=== PATIENT | female | born 1985 | race Caucasian/White ===

== ENCOUNTER 2016-10-08 18:30 | Inpatient (IN) | payer SELFPAY ==
[~2016-10-08] VITALS: Ht 160 cm; Wt 75.0 kg
[~2016-10-08 18:30] MED LIST: ARIP1TAB5 PO; DULO20 PO; LORA-474 PO
[2016-10-08 18:33] VITALS: BP 116/71; PULSE 117; RESP 16; TEMP 98.2; O2SAT 98
[2016-10-08] MEDS ORDERED: XANA1TAB2 PO (18:42)
[2016-10-08] MEDS ORDERED: BREX1TAB2 PO (18:42)
[2016-10-08] MEDS ORDERED: ZOLO100T PO (18:42)
--- NOTE | 2016-10-08 19:03 | PD ---
HPI Chief Complaint: Psychiatric Symptoms Time Seen by Provider: 18:55 Travel History International Travel<30 days: No Contact w/Intl Traveler<30days: No Traveled to known affect area: No History of Present Illness HPI Patient is a 31-year-old female presents emergency department for evaluation for being "at the end of her rope". Patient states she took 20 tablets of Xanax of unknown strength approximate hour prior to arrival. She states she wasn't trying to hurt herself just trying to make herself feel better. She states she has a history of depression. Denies any other ingestions tonight. She denies any physical complaints including any chest pain shortness of breath abdominal pain nausea or vomiting. She states psychiatric symptoms been going on for some time and gradually worsening. PFSH Past Medical History Hx Anticoagulant Therapy: No Asthma: No Anxiety: Yes Depression: Yes Cardiovascular Problems: No Chemotherapy: No COPD: No Cerebrovascular Accident: No Diabetes: No Diminished Hearing: No Psychiatric: Yes Respiratory: No ?: Not : 0 Para: 0 Miscarriage: 0 : 0 Past Surgical History Hysterectomy: No Other Surgery: Yes (DEVIATED SEPTUM REPAIR-2002) Social History Alcohol Use: Yes ([facility]) Tobacco Use: No Substance Use: No Allergies-Medications (Allergen,Severity, Reaction): Coded Allergies: No Known Allergies (Verified , 10/08/16) Reported Meds & Prescriptions Reported Meds & Active Scripts Active Reported Xanax (Alprazolam) 1 Mg Tab 1 Mg PO TID PRN Zoloft (Sertraline HCl) 100 Mg Tab 200 Mg PO DAILY Rexulti (Brexpiprazole) 0.5 Mg Tab 0.5 Mg PO DAILY Review of Systems Except as stated in HPI: all other systems reviewed are Neg Physical Exam Narrative GENERAL: Well-developed well-nourished no obvious distress. SKIN: Focused skin assessment warm/dry. HEAD: Atraumatic. Normocephalic. EYES: Pupils equal and round. No scleral icterus. No injection or drainage. ENT: No nasal bleeding or discharge. Mucous membranes pink and moist. NECK: Trachea midline. No JVD. CARDIOVASCULAR: Regular rate and rhythm. No murmur appreciated. RESPIRATORY: No accessory muscle use. Clear to auscultation. Breath sounds equal bilaterally. GASTROINTESTINAL: Abdomen soft, non-tender, nondistended. Hepatic and splenic margins not palpable. MUSCULOSKELETAL: No obvious deformities. No clubbing. No cyanosis. No edema. NEUROLOGICAL: Awake and alert. No obvious cranial nerve deficits. Motor grossly within normal limits. Normal speech. PSYCHIATRIC: Appropriate mood and affect; endorses suicidal ideation but states that tonight was not a suicide attempt. Denies homicidal ideation, denies any audiovisual hallucinations. Data Data Last Documented VS Vital Signs Date Time Temp Pulse Resp B/P Pulse Ox O2 Delivery O2 Flow Rate FiO2 10/08/16 21:22 105 17 104/68 97 Room Air 10/08/16 18:33 98.2 Orders Complete Blood Count With Diff (10/08/16 19:11) Comprehensive Metabolic Panel (10/08/16 19:11) Urinalysis - C+S If Indicated (10/08/16 19:11) Ed Urine Pregnancytest Poc (10/08/16 19:11) Psych Screen (10/08/16 19:11) Drug Screen, Random Urine (10/08/16 19:11) Alcohol (Ethanol) (10/08/16 19:11) Salicylates (Aspirin) (10/08/16 19:11) Tylenol (Acetaminophen) (10/08/16 19:11) Diet Regular Basic (10/09/16 Breakfast) Labs Laboratory Tests Test 10/08/16 19:00 White Blood Count 5.7 TH/MM3 Red Blood Count 4.57 MIL/MM3 Hemoglobin 11.4 GM/DL Hematocrit 35.6 % Mean Corpuscular Volume 77.8 FL Mean Corpuscular Hemoglobin 25.0 PG Mean Corpuscular Hemoglobin 32.2 % Concent Red Cell Distribution Width 15.3 % Platelet Count 267 TH/MM3 Mean Platelet Volume 10.2 FL Neutrophils (%) (Auto) 59.3 % Lymphocytes (%) (Auto) 29.6 % Monocytes (%) (Auto) 8.7 % Eosinophils (%) (Auto) 1.7 % Basophils (%) (Auto) 0.7 % Neutrophils # (Auto) 3.4 TH/MM3 Lymphocytes # (Auto) 1.7 TH/MM3 Monocytes # (Auto) 0.5 TH/MM3 Eosinophils # (Auto) 0.1 TH/MM3 Basophils # (Auto) 0.0 TH/MM3 CBC Comment DIFF FINAL Differential Comment Urine Color LIGHT-YELLOW Urine Turbidity CLEAR Urine pH 6.0 Urine Specific [place] 1.004 Urine Protein NEG mg/dL Urine Glucose (UA) NEG mg/dL Urine Ketones NEG mg/dL Urine Occult Blood MOD Urine Nitrite NEG Urine Bilirubin NEG Urine Urobilinogen LESS THAN 2.0 MG/DL Urine Leukocyte Esterase NEG Urine RBC 2 /hpf Urine WBC 1 /hpf Urine Squamous Epithelial 1 /hpf Cells Urine Bacteria RARE /hpf Microscopic Urinalysis Comment CULT NOT INDICATED Sodium Level 137 MEQ/L Potassium Level 3.4 MEQ/L Chloride Level 104 MEQ/L Carbon Dioxide Level 26.6 MEQ/L Anion Gap 6 MEQ/L Blood Urea Nitrogen 10 MG/DL Creatinine 1.08 MG/DL Estimat Glomerular Filtration 59 ML/MIN Rate Random Glucose 117 MG/DL Calcium Level 9.2 MG/DL Total Bilirubin 0.4 MG/DL Aspartate Amino Transf 12 U/L (AST/SGOT) Alanine Aminotransferase 20 U/L (ALT/SGPT) Alkaline Phosphatase 99 U/L Total Protein 7.8 GM/DL Albumin 4.1 GM/DL Salicylates Level LESS THAN 1.7 MG/DL Urine Opiates Screen NEG Acetaminophen Level LESS THAN 20.0 MCG/ML Urine Barbiturates Screen NEG Urine Amphetamines Screen NEG Urine Benzodiazepines Screen POS Urine Cocaine Screen NEG Urine Cannabinoids Screen NEG Ethyl Alcohol Level LESS THAN 3 MG/DL MDM Medical Decision Making Medical Screen Exam Complete: Yes Emergency Medical Condition: Yes Differential Diagnosis Xanax overdose, other substance overdose, psychiatric disorder. Narrative Course Patient states he took 20 tablets of Xanax approximately an hour prior to arrival. She states she is at the end of her rope. She was placed under a [place] act by me for an apparent suicide attempt. Labs are reassuring she's been monitored here in emerged permit for 2 hours. She is medically cleared for psychiatric evaluation and disposition Diagnosis Primary Impression: Benzodiazepine overdose Additional Impression: Depression Condition: Stable Reagan Thayer MD Oct 08, 2016 19:03
[2016-10-08 20:26] LABS: AMPHETAMINE, URINE NEG (NEG); BARBITURATES, URINE NEG (NEG); COCAINE, URINE NEG (NEG)
[2016-10-08 20:28] LABS: AUTOMATED NEUTROPHIL # 3.4 TH/MM3 (1.8-7.7); BACTERIA, URINE RARE /hpf; BASOPHIL % 0.7 % (0.0-2.0); BLOOD, URINE MOD (NEG); COMMENT (UR) CULT NOT INDICATED; CULTURE IF INDICATED CULT NOT INDICATED; EOSINOPHIL # 0.1 TH/MM3 (0-0.4); EOSINOPHIL % 1.7 % (0.0-4.0); GLUCOSE,URINE NEG (NEG); HEMATOCRIT 35.6 % (35.0-46.0); HEMO FLAGS DIFF FINAL; KETONE, URINE NEG (NEG); LYMPH % 29.6 % (9.0-44.0); LYMPHOCYTE # 1.7 TH/MM3 (1.0-4.8); MEAN CELL VOLUME 77.8 FL (80.0-100.0); MEAN CORPUSCULAR HGB CONC 32.2 % (32.0-36.0); MONO % 8.7 % (0.0-8.0); NEUT % 59.3 % (16.0-70.0); NITRITE,URINE NEG (NEG); PLATELET COUNT 267 TH/MM3 (150-450); RED BLOOD COUNT 4.57 MIL/MM3 (4.00-5.30); RED CELL DISTRIBUTION WIDTH 15.3 % (11.6-17.2); SQUAMOUS EPITHELIAL CELL URINE 1 /hpf (0-5); URINE COLOR LIGHT-YELLOW (YELLW/STRAW); WHITE BLOOD COUNT 5.7 TH/MM3 (4.0-11.0)
[2016-10-08 20:41] LABS: ANION GAP 6 MEQ/L (5-15); AST (GOT) 12 U/L (15-37); BICARBONATE 26.6 MEQ/L (21.0-32.0); BLOOD UREA NITROGEN 10 MG/DL (7-18); CHLORIDE 104 MEQ/L (98-107); GLOMERULAR FILTRATION RATE 59 ML/MIN (>89); POTASSIUM 3.4 MEQ/L (3.5-5.1); SODIUM (NA) 137 MEQ/L (136-145)
[2016-10-08 20:45] LABS: ALKALINE PHOSPHATASE 99 U/L (45-117); ALT (GPT) 20 U/L (10-53); TOTAL BILIRUBIN ADULT 0.4 MG/DL (0.2-1.0)
[2016-10-08 20:57] LABS: ACETAMINOPHEN LESS THAN 20.0 MCG/ML (10.0-30.0)
[2016-10-08 21:00] VITALS: BP 97/64; PULSE 97; RESP 16; O2SAT 98
[2016-10-08 21:22] VITALS: BP 104/68; PULSE 105; RESP 17; O2SAT 97
[2016-10-09 02:00] VITALS: BP 106/68; PULSE 77; RESP 18; O2SAT 97
[2016-10-09] MEDS ORDERED: MAGNESIUM HYDROXIDE SUSP 30 ML CUP PO PRN (08:45)
[2016-10-09] MEDS ORDERED: LORazepam 2 MG/ML VIAL IV PUSH PRN ×4 (08:45)
[2016-10-09] MEDS ORDERED: LORazepam 2 MG TAB PO PRN (08:45)
[2016-10-09] MEDS ORDERED: LORazepam 0.5 MG TAB PO PRN (08:45)
[2016-10-09] MEDS ORDERED: ACETAMINOPHEN 325 MG TAB PO PRN (08:45)
[2016-10-09] MEDS ORDERED: LORazepam 2 MG/ML VIAL IM PRN ×2 (08:45)
[2016-10-09] MEDS ORDERED: LORazepam 1 MG TAB PO PRN (08:45)
[2016-10-09] MEDS ORDERED: FLUMAZENIL 0.5 MG/5 ML VIAL IV PUSH PRN (08:45)
[2016-10-09] MEDS ORDERED: ALUMINUM/MAGNESIUM/SIMETH 30 ML CUP PO PRN (08:45)
--- NOTE | 2016-10-09 08:59 | HHI.HP ---
Provisional Diagnosis Admission Date Oct 09, 2016 at 08:35 [place] I. Major depressive disorder, recurrent, severe, without psychosis, hypnotic- sedative use disorder, history of anxiety, [place] II. Unspecified personality disorder, rule out borderline personality disorder [place] III. No significant medical history [place] IV. Extensive history of self cutting behavior, suicidal attempts, financial stressors Low[place] V. 45 Certification of Person's Competence To Provide Express and Informed Consent I have personally examined Deborah Perez , a person being served at [facility] onOct 09, 2016 08:54. Express and informed consent means consent voluntarily given in writing, by a competent person, after sufficient explanation and disclosure of the subject matter involved to enable the person to make a knowing and willful decision without any element of force, fraud, deceit, duress, or other form of constraint or coercion. This person is 18 years of age or older, is not now known to be incompetent to consent to treatment with a guardian advocate, and does not have a health care surrogate or proxy currently making medical treatment decisions. I have found this person to be one of the following: [X] Competent to provide express and informed consent, as defined above, for voluntary admission to this facility and is competent to provide express and informed consent for treatment. He/she has the consistent capacity to make well reasoned, willful, and knowing decisions concerning his or her medical or mental health treatment. The person fully and consistently understands the purpose of the admission for examination/placement and is fully capable of personally exercising all rights assured [place] Incompetent to provide express and informed consent to voluntary admission, and this is incompetent to provide express and informed consent to treatment. The person must be transferred to involuntary status and a petition for a guardian advocate filed with the Circuit Court. [] Refusing to provide express and informed consent to voluntary admission but is competent to provide express and informed consent for treatment. The person must be discharged or transferred to involuntary status. Form shall be completed within 24 hours of a person's arrival at the receiving facility and filed in the clinical record of each person: 1. Admitted on a voluntary basis 2. Permitted to provide express and informed consent to his/her own treatment 3. Allowed to transfer from involuntary to voluntary status 4. Prior to permitting a person to consent to his or her own treatment after having been previously found incompetent to consent to treatment. History of Present Illness Capacity: Has Capacity HPI The patient is a 31-year-old woman, domiciled with her in [facility], unemployed, with psychiatric history of major depressive disorder, anxiety, benzodiazepine dependence, multiple psychiatric admissions, previous suicidal attempts, self cutting behavior without SI, active outpatient psychiatric care, she is on Zoloft 200 mg, Xanax 1 3 times a day, Brexpiprazole , no significant medical history, who presents emergency department for evaluation for being "at the end of her rope". Patient states she took 20 tablets of Xanax of unknown strength approximate hour prior to arrival. She states she wasn't trying to hurt herself just trying to make herself feel better , but she has been having increased in severity, intensity and frequency suicidal thoughts and desire of self cutting. Patient reports that she has been having financial issues, also marital problems, she has been looking for a job for the last 3 months unsuccessfully. But, at the same time without any reason she has been increasingly hopeless, helpless, worthless, with decreased self-esteem, difficulty sleeping at night, increased anxiety, and decreased appetite. Patient denies visual and auditory hallucinations, she denies homicidal ideations. Patient is oriented 3, without any attention deficit, no gross cognitive impairment. Patient reports that she has been abusing Xanax, she is unable to quantify the amount that she is using everyday, but she seems to be insightful about her benzodiazepine addiction problem. At the moment of this evaluation patient does not seem to be drug seeking and she seems to be more committed with an admission for her depression. She denies the use of illicit drugs and she denies the use of alcohol. Review of Systems Constitutional: DENIES: Diaphoretic episodes, Fatigue, Fever, Weight gain, Weight loss, Chills, Dizziness, Change in appetite, Night Sweats Endocrine: DENIES: Abnorml menstrual pattern, Heat/cold intolerance, Polydipsia , Polyuria, Polyphagia Eyes: DENIES: Blurred vision, Diplopia, Eye inflammation, Eye pain, Vision loss , Photosensitivity, Double Vision Ears, nose, mouth, throat: DENIES: Tinnitus, Hearing loss, Vertigo, Nasal discharge, Oral lesions, Throat pain, Hoarseness, Ear Pain, Running Nose, Epistaxis, Sinus Pain, Toothache, Odynophagia Respiratory: DENIES: Apneas, Cough, Snoring, Wheezing, Hemoptysis, Sputum production, Shortness of breath Cardiovascular: DENIES: Chest pain, Palpitations, Syncope, Dyspnea on Exertion , PND, Lower Extremity Edema, Orthopnea, Claudication Gastrointestinal: DENIES: Abdominal pain, Black stools, Bloody stools, Constipation, Diarrhea, Nausea, Vomiting, Difficulty Swallowing, Anorexia Musculoskeletal: DENIES: Joint pain, Muscle aches, Stiffness, Joint Swelling, Back pain, Neck pain Integumentary: DENIES: Abnormal pigmentation, Pruritus, Rash, Nail changes, Breast masses, Breast skin changes, Nipple discharge Hematologic/lymphatic: DENIES: Bruising, Lymphadenopathy Neurologic: DENIES: Abnormal gait, Headache, Localized weakness, Paresthesias, Seizures, Speech Problems, Tremor, Poor Balance Psychiatric: COMPLAINS OF: Anxiety, Depression, Suicidal Ideation, DENIES: Confusion, Mood changes, Hallucinations, Agitation, Homicidal Ideation, Delusions Past Psych History Violence risk - self (6 mos) Elevated Substance Abuse History Drugs/Alcohol past 12 months Patient denies the use of illicit drugs and alcohol, she confirms that she abuses Xanax Past Family Social History Coded Allergies: No Known Allergies (Verified , 10/08/16) Reported Medications Alprazolam (Xanax)1 Mg Tab1 Mg PO TID PRN (ANXIETY) Ref 0 10/08/16 Sertraline (Zoloft)100 Mg Cmg751 Mg PO DAILY #30 TAB Ref 0 10/08/16 Brexpiprazole (Rexulti)0.5 Mg Tab0.5 Mg PO DAILY 10/08/16 Discontinued Reported Medications Duloxetine DR (Cymbalta DR)20 Mg Capdr20 Mg PO DAILY #30 CAP Ref 0 02/28/16 Aripiprazole (Abilify)10 Mg Tab10 Mg PO DAILY #30 TAB Ref 0 02/28/16 Lorazepam (Ativan)1 Mg Tab1 Mg PO Q6H PRN (ANXIETY AND/OR AGITATION) Ref 0 02/28/16 Current Medications Medications (Trade) Dose Ordered Sig/Nga Route Start Time Stop Time Status Last Admin (Ativan) 1 mg Q6H PRN PO 10/09/16 08:45 (Ativan Inj) 1 mg Q6H PRN IM 10/09/16 08:45 (Tylenol) 650 mg Q4H PRN PO 10/09/16 08:45 (Milk Of Magnesia Liq) 30 ml DAILY PRN PO 10/09/16 08:45 (Mag-Al Plus Susp Liq) 30 ml Q6H PRN PO 10/09/16 08:45 (Habitrol 21 Mg Patch.24 Hr) 1 patch DAILY T-DERMAL 10/09/16 09:00 (Romazicon Inj) 0.2 mg Q1M PRN IV PUSH 10/09/16 08:45 (Ativan) 1 mg Q4H PRN PO 10/09/16 08:45 (Ativan Inj) 1 mg Q4H PRN IV PUSH 10/09/16 08:45 (Ativan) 2 mg Q2H PRN PO 10/09/16 08:45 (Ativan Inj) 2 mg Q2H PRN IV PUSH 10/09/16 08:45 (Ativan Inj) 2 mg Q1H PRN IV PUSH 10/09/16 08:45 (Ativan Inj) 2 mg Q15M PRN IV PUSH 10/09/16 08:45 (Zoloft) 200 mg DAILY PO 10/09/16 09:00 UNV Non-Formulary Medication 0.5 mg DAILY PO 10/09/16 09:00 UNV (Atarax) 25 mg Q8H PRN PO 10/09/16 08:45 UNV Miscellaneous Information 1 HS T-DERMAL 10/09/16 21:00 Family History She doesn't have any family psychiatric history Social History She was born and raised in [place], he now lives with her in [place], she has no kids, she is unemployed at this time, her highest level of education is college Patient's Strengths (min. 2) Family support, outpatient psychiatric care Physical Exam On physical exam, no psychomotor retardation or agitation, no tremors, no withdrawal, no stiffness, no EPS, no gait disturbance noted Vital Signs Vital Signs Date Time Temp Pulse Resp B/P Pulse Ox O2 Delivery O2 Flow Rate FiO2 10/09/16 02:00 77 18 106/68 97 Room Air 10/08/16 18:33 98.2 Mental Status Examination Appearance woman, age appearing, [facility], good hygiene, several scars from previous self cutting behavior in both arms, calm and cooperative Speech: Unremarkable Orientation: x3 Memory: Unremarkable Thought Content: Unremarkable Language Patient speaks in complete sentences, adequate words and grammar Fund of Knowledge Adequate for level of education Attention and Concentration: Good Suicidal Ideation: Yes Previous Suicide Attempts: Yes Homicidal Ideation: No Previous Homicide Attempts: No Insight: Good Judgment: Poor Affect: Sad Mood: Sad Assessment & Plan Problem List: (1) Depression Assessment & Plan: On psychiatric evaluation today the patient reports symptomatology of depression and suicidal ideation. Symptoms of depression consisting and about 3 months of continues, increase in severity and intensity mood swings, hopelessness, helplessness, worthlessness, low self-esteem, problems sleeping, anxiety, and suicidal thoughts. Patient has recently, yesterday, overdose with about 20 pills of Xanax, she reports persisting intrusive thoughts of self cutting. Patient reports acute stressors consistent on unemployment, marital and financial problems. Patient admits being abusing Xanax for many years. She is unable to quantify the amount of pills taken in a day. She seems to be interested in regulating the use of this medication. No withdrawal symptoms present at this moment. She has an extensive history of suicidal ideation and self cutting behavior. At this moment patient represents an acute danger to self and needs psychiatric admission for safety. Patient will be admitted in voluntarily basis. We would restart her outpatient psychotropics with the exception of Xanax. will start CIWa protocol, but we will avoid the use of benzodiazepines for anxiety. This decision was widely discussed with the patient before the admission, she agrees. Extensive psychoeducation, supportive motivation provided. ICD Code: F32.9 Assessment & Plan Estimated LOS: days Problem Qualifiers (1) Depression: Jose Rosenberg MD Oct 09, 2016 08:59
[2016-10-09] MEDS: NICOTINE 21 MG/24 HR PATCH T-DERMAL SCH (09:00)
[2016-10-09] MEDS ORDERED: hydrOXYzine HCL 25 MG TAB PO PRN (10:00)
[2016-10-09] MEDS: SERTRALINE HCL 100 MG TAB PO SCH (10:00)
[2016-10-09] MEDS ORDERED: BREXPIPRAZOLE 0.5 MG PO SCH (10:00)
[2016-10-09] MEDS: LORazepam 1 MG TAB PO PRN (11:54)
[2016-10-09 12:00] VITALS: BP 112/72; PULSE 88; RESP 16; TEMP 98.1; O2SAT 98
[2016-10-09 19:18] VITALS: BP 134/70; PULSE 101; RESP 18; TEMP 98.1; O2SAT 95
[2016-10-09] MEDS: REMOVE OLD NICODERM (NICOTINE) PATCH T-DERMAL SCH (21:00)
[2016-10-10 06:18] VITALS: BP 107/60; PULSE 85; RESP 18; TEMP 98.1; O2SAT 97
[2016-10-10] MEDS: SERTRALINE HCL 100 MG TAB PO SCH (08:20)
[2016-10-10] MEDS: NICOTINE 21 MG/24 HR PATCH T-DERMAL SCH (08:23)
[2016-10-10 08:31] LABS: ANION GAP 6 MEQ/L (5-15); BICARBONATE 27.7 MEQ/L (21.0-32.0); BLOOD UREA NITROGEN 16 MG/DL (7-18); CHLORIDE 107 MEQ/L (98-107); GLOMERULAR FILTRATION RATE 72 ML/MIN (>89); POTASSIUM 3.9 MEQ/L (3.5-5.1); SODIUM (NA) 141 MEQ/L (136-145)
[2016-10-10 08:33] LABS: HDL CHOLESTEROL 59.9 MG/DL (40.0-60.0); LDL CHOLESTEROL 205 MG/DL (0-99)
--- NOTE | 2016-10-10 12:33 | HHI.PYPN ---
Subjective Remarks Patient seen and examined with counselor and nurse. Chart reviewed. Case discussed with nursing staff. On my examination today, patient gives a history of depressive illness stretching back to age 18 when she went off to college. She has had brief remissions since then but has spent much of the time depressed. Most recently, she has been feeling increasingly depressed over months. Symptoms include low mood, anhedonia, low energy, lack of motivation. Most troubling symptom is hopelessness. Also has anxiety, chiefly generalized although she did have some issues with panic several years ago. No history of manic/hypomanic episodes that I can elicit, nor is there any history of psychosis. No manic/psychotic symptoms now. No OC sxs. Follows with a LEGAL COORDINATOR at [facility] but plans to start seeing Dr. Mills. Also has a therapist, Lesli Pepe. 1 previous OD several years ago. Also has a history of NSSIB. Remote hospitalization here back in 2004. No real family history per pt, but she thinks her father may have undiagnosed BPAD. Denies chem dep issues. Denies medical issues. Remains depressed now with same symptoms as above but denies active SI at this time. Previous med trials include most of the SSRIs except for Luvox. SNRI trials include Effexor, Cymbalta. No TCAs. No MAOIs. Augmentation with Abilify, Latuda, Rexulti. Never tried augmenting with Remeron, lithium, LCT, Cytomel. Feels she did best on Zoloft 200mg/day + Wellbutrin ?300mg/day but experienced tachyphylaxis. Contemplated ECT but no insurance. Review of Systems Except as stated in HPI: all other systems reviewed are Neg Objective Alert: Yes [place]: Person, Place, Date, Situation Mood: Depressed Affect: Restricted Memory Intact: Comment (Seems grossly intact on clinical exam.) Hallucinations: Other (Denies AVH) Delusions: No Delusion Type: Other (No delusions elicited.) Suicidal: Ideation (Denies active SI but remains quite depressed. No reason to live per pt.) Homicidal: Ideation (Denies HI) Insight/Judgment Fair Remarks No abnormal motor movements noted. TP linear. Speech wnl for rate, tone, volume. Grooming and hygiene fair. Labs Test 10/10/16 07:08 Sodium Level 141 MEQ/L Potassium Level 3.9 MEQ/L Chloride Level 107 MEQ/L Carbon Dioxide Level 27.7 MEQ/L Anion Gap 6 MEQ/L Blood Urea Nitrogen 16 MG/DL Creatinine 0.91 MG/DL Estimat Glomerular Filtration 72 ML/MIN Rate Random Glucose 91 MG/DL Calcium Level 8.4 MG/DL Triglycerides Level 149 MG/DL Cholesterol Level 295 MG/DL LDL Cholesterol 205 MG/DL HDL Cholesterol 59.9 MG/DL Cholesterol/HDL Ratio 4.92 RATIO Labs reviewed. I also requested TFTs: TSH wnl, FT4 slightly low. EKG wnl, QTc not prolonged. Vitals/IOs Vital Signs Date Time Temp Pulse Resp B/P Pulse Ox O2 Delivery O2 Flow Rate FiO2 10/10/16 06:18 98.1 85 18 107/60 97 10/09/16 02:00 Room Air Assessment & Plan Problem List: (1) Depression ICD Code: F32.9 (2) Anxiety ICD Code: F41.9 Assessment & Plan Given previous antidepressant trials and ongoing depressive symptoms, I think it is reasonable to try new class of antidepressant. Start Pamelor 50mg qHS. R /B/A d/w pt. TFTs likely nonspecific but we should work patient up for central hypothyroidism/HPA-axis dysfunction as this could relate to her depressive symptoms. Recheck TFTs in morning and check PRL, LH, FSH, cortisol. Titrate Atarax to 50mg QID PRN anxiety. Continue CIWA with Ativan. Add seizure and fall prec. Continue to monitor on inpatient unit. Continue other meds and care as ordered. Justification for Cont. Inpt. Med changes. Concern for impairment in safety. Possible complicating condition. High risk for decompensation in less restrictive environment. Discharge Planning Pending psychiatric stabilization. Request HC Surrog/Guard Advoc?: No Problem Qualifiers (1) Depression: Qualified Code: F33.2 - Severe episode of recurrent major depressive disorder, without psychotic features Junior Peraza MD Oct 10, 2016 12:33
[2016-10-10 13:33] LABS: FREE T4 0.73 NG/DL (0.76-1.46)
--- NOTE | 2016-10-10 14:57 | EKG ---
Date Performed: 10/10/2016 Time Performed: 13:33:09 PTAGE: 31 years EKG: Sinus rhythm NORMAL ECG NO PREVIOUS TRACING DOCTOR: Harpreet Redman Interpretating Date/Time 10/10/2016 14:55:32
[2016-10-10 16:30] VITALS: BP 120/71; PULSE 93; RESP 18; TEMP 98.6; O2SAT 96
[2016-10-10 18:04] LABS: HEMOGLOBIN A1a 1.1 %; HEMOGLOBIN A1b 1.6 %; HEMOGLOBIN Ao 86.3 %; HEMOGLOBIN LA1C 1.8 %; HEMOGLOBIN P3 3.3 %
[2016-10-10] MEDS: LORazepam 1 MG TAB PO PRN (18:41)
[2016-10-10] MEDS: REMOVE OLD NICODERM (NICOTINE) PATCH T-DERMAL SCH (21:00)
[2016-10-10] MEDS: NORTRIPTYLINE HCL 25 MG CAP PO SCH (21:05)
[2016-10-11 05:45] VITALS: BP 109/61; PULSE 100; RESP 16; TEMP 97.8; O2SAT 99
[2016-10-11] MEDS: NICOTINE 21 MG/24 HR PATCH T-DERMAL SCH (08:17)
--- NOTE | 2016-10-11 11:51 | HHI.PYPN ---
Subjective Remarks Patient seen and examined with nurse. Chart reviewed. Case discussed with nursing staff. On my examination today, the patient complains of feeling somewhat depressed as before. Anxiety remains present. Sleep was somewhat poor. Denies SI. Denies side effects from the Pamelor or other medications. No physical complaints. Review of Systems Except as stated in HPI: all other systems reviewed are Neg Objective Alert: Yes [place]: Person, Place, Date, Situation Mood: Depressed Affect: Restricted Memory Intact: Comment (intact) Hallucinations: Other (Denies AVH) Delusions: No Delusion Type: Other (no delusions) Suicidal: Ideation (denies SI) Homicidal: Ideation (denies HI) Insight/Judgment Fair Remarks No motor abnormalities. Thought process linear. Grooming and hygiene fair. No signs of withdrawal noted. Labs Item Value Date Time Free Thyroxine 0.78 NG/DL 10/11/16 0814 Thyroid Stimulating Hormone 3rd Gen 2.360 uIU/ML 10/11/16 0814 Follicle Stimulating Hormone 4.4 mIU/mL 10/11/16 0814 Luteinizing Hormone 5.9 mIU/mL 10/11/16 0814 Random Cortisol 22.6 MCG/DL 10/11/16 0717 Labs reviewed. Prolactin level pending. Other endocrine laboratories unremarkable. Vitals/IOs Vital Signs Date Time Temp Pulse Resp B/P Pulse Ox O2 Delivery O2 Flow Rate FiO2 10/11/16 05:45 97.8 100 16 109/61 99 10/09/16 02:00 Room Air Assessment & Plan Problem List: (1) Depression ICD Code: F32.9 (2) Anxiety ICD Code: F41.9 Assessment & Plan Discussed with patient pharmacotherapeutic options going forward. After a discussion of risks and benefits, she would like to go ahead and add Cytomel to existing Pamelor with plans to further titrate the Pamelor over the weekend if well tolerated. Add Cytomel 25mcg daily. Could consider titrating Pamelor over the weekend to 75 mg at bedtime. I will add Benadryl as needed for sleep. Continue to monitor on the inpatient unit. Continue other medications and care as ordered. Justification for Cont. Inpt. Medication changes in process. Monitoring for impairments in safety. Discharge Planning Pending psychiatric stabilization Request HC Surrog/Guard Advoc?: No Problem Qualifiers (1) Depression: Qualified Code: F33.2 - Severe episode of recurrent major depressive disorder, without psychotic features Junior Peraza MD Oct 11, 2016 11:51
[2016-10-11] MEDS: hydrOXYzine HCL 25 MG TAB PO PRN ×2 (12:09→17:44)
[2016-10-11 12:56] LABS: FOLLICLE STIMULATING HORMONE 4.4 mIU/mL; FREE T4 0.78 NG/DL (0.76-1.46); LUTEINIZING HORMONE 5.9 mIU/mL
[2016-10-11] MEDS ORDERED: diphenhydrAMINE HCL 50 MG CAP PO PRN (14:15)
[2016-10-11 17:31] VITALS: BP 130/73; PULSE 117; RESP 16; TEMP 98.6; O2SAT 92
[2016-10-11] MEDS: REMOVE OLD NICODERM (NICOTINE) PATCH T-DERMAL SCH (18:29)
[2016-10-11] MEDS: NORTRIPTYLINE HCL 25 MG CAP PO SCH (20:06)
[2016-10-12 06:01] VITALS: BP 110/72; PULSE 113; RESP 17; TEMP 98; O2SAT 96
[2016-10-12] MEDS: NICOTINE 21 MG/24 HR PATCH T-DERMAL SCH (09:00)
[2016-10-12] MEDS: LIOTHYRONINE SODIUM 25 MCG TAB PO SCH (10:36)
[2016-10-12] MEDS: hydrOXYzine HCL 25 MG TAB PO PRN ×2 (11:12→21:16)
--- NOTE | 2016-10-12 15:38 | HHI.PYPN ---
Subjective Remarks Pt seen and discussed with staff. She remains depressed and ruminates on stressors (unemployment, marital problems). She denies SI/HI but reported to staff that she does not see any light at the end of the tunnel regarding her life. She reports that she regrets OD with xanax and wants to learn how to cope with stress. No SI/HI She is tolerating medication without side effects and reports that mood is better than at admission. Objective Alert: Yes [place]: Person, Place, Date, Situation Mood: Depressed Affect: Restricted Memory Intact: Comment (intact) Hallucinations: Other (Denies AVH) Delusions: No Delusion Type: Other (no delusions) Suicidal: Ideation (denies SI) Homicidal: Ideation (denies HI) Insight/Judgment limited Vitals/IOs Vital Signs Date Time Temp Pulse Resp B/P Pulse Ox O2 Delivery O2 Flow Rate FiO2 10/12/16 06:01 98.0 113 17 110/72 96 10/09/16 02:00 Room Air Assessment & Plan Problem List: (1) Depression ICD Code: F32.9 (2) Anxiety ICD Code: F41.9 Assessment & Plan Continue current tx plan. Estimated LOS: days Justification for Cont. Inpt. impairments in safety Request HC Surrog/Guard Advoc?: No Problem Qualifiers (1) Depression: Qualified Code: F33.2 - Severe episode of recurrent major depressive disorder, without psychotic features Marianela Coleman MD Oct 12, 2016 15:38
[2016-10-12 18:40] VITALS: BP 129/71; PULSE 106; RESP 18; TEMP 97.7; O2SAT 98
[2016-10-12] MEDS: REMOVE OLD NICODERM (NICOTINE) PATCH T-DERMAL SCH (21:00)
[2016-10-12] MEDS: NORTRIPTYLINE HCL 25 MG CAP PO SCH (21:17)
[2016-10-13 06:11] VITALS: BP 109/71; PULSE 113; RESP 18; TEMP 97.6; O2SAT 95
[2016-10-13] MEDS: LIOTHYRONINE SODIUM 25 MCG TAB PO SCH (08:35)
[2016-10-13] MEDS: NICOTINE 21 MG/24 HR PATCH T-DERMAL SCH (09:00)
[2016-10-13] MEDS: hydrOXYzine HCL 25 MG TAB PO PRN ×2 (10:09→16:47)
--- NOTE | 2016-10-13 15:31 | HHI.PYPN ---
Subjective Remarks Pt seen and discussed with staff. She reported high anxiety to RN and remains depressed. She denies SI/HI. No behavioral disturbance. She is compliant with medications and denies side effects Objective Alert: Yes [place]: Person, Place, Date, Situation Mood: Depressed Affect: Restricted Memory Intact: Comment (intact) Hallucinations: Other (Denies AVH) Delusions: No Delusion Type: Other (no delusions) Suicidal: Ideation (denies SI) Homicidal: Ideation (denies HI) Insight/Judgment limited Vitals/IOs Vital Signs Date Time Temp Pulse Resp B/P Pulse Ox O2 Delivery O2 Flow Rate FiO2 10/13/16 06:11 97.6 113 18 109/71 95 Assessment & Plan Problem List: (1) Depression ICD Code: F32.9 (2) Anxiety ICD Code: F41.9 Assessment & Plan Continue current tx plan. Estimated LOS: days Justification for Cont. Inpt. monitoring for safety Request HC Surrog/Guard Advoc?: No Problem Qualifiers (1) Depression: Qualified Code: F33.2 - Severe episode of recurrent major depressive disorder, without psychotic features Marianela Coleman MD Oct 13, 2016 15:31
[2016-10-13 16:52] VITALS: BP 136/78; PULSE 109; RESP 18; TEMP 98.7; O2SAT 97
[2016-10-13] MEDS: REMOVE OLD NICODERM (NICOTINE) PATCH T-DERMAL SCH (21:00)
[2016-10-13] MEDS: NORTRIPTYLINE HCL 25 MG CAP PO SCH (21:44)
[2016-10-13] MEDS ORDERED: traZODone HCL 50 MG TAB PO ONE (22:30)
[2016-10-14 05:55] VITALS: BP 112/71; PULSE 103; RESP 18; TEMP 98.1; O2SAT 97
[2016-10-14] MEDS: NICOTINE 21 MG/24 HR PATCH T-DERMAL SCH (08:39)
[2016-10-14] MEDS: LIOTHYRONINE SODIUM 25 MCG TAB PO SCH (08:39)
[2016-10-14] MEDS: LORazepam 1 MG TAB PO PRN ×2 (08:41→17:15)
--- NOTE | 2016-10-14 11:46 | HHI.PYPN ---
Subjective Remarks Patient seen and examined with nurse. Chart reviewed. Case discussed with nursing staff who notes that the patient is observed to be laughing and social with peers and staff but on -on- presents a more dour countenance. On my examination today, patient reports that anxiety is somewhat improved. Mood remain low, although the patient denies active SI at this time. Sleep remains a little poor, although she did get some better sleep with trazodone last night. She is asking about timing of discharge, and we agree that middle of the week might be reasonable if she continues to improve. I discuss endocrine labs with her. Denies side effects from medications. She would like to titrate her Pamelor. Denies physical complaints. Denies any menstrual irregularity or galactorrhea. Did experience galactorrhea several months back while on Latuda, but this is now resolved. Review of Systems Except as stated in HPI: all other systems reviewed are Neg Objective Alert: Yes [place]: Person, Place, Date, Situation Mood: Depressed Affect: Blunted (more reactive) Memory Intact: Comment (Remains intact) Hallucinations: Other (No AVH) Delusions: No Delusion Type: Other (None) Suicidal: Ideation (Denies SI) Homicidal: Ideation (No HI) Insight/Judgment Fair Remarks Thought process linear. Grooming and hygiene at least fair. Speech within normal limits for rate, tone and volume. No motor abnormalities appreciated. Labs Labs reviewed. Prolactin level slightly elevated. Vitals/IOs Vital Signs Date Time Temp Pulse Resp B/P Pulse Ox O2 Delivery O2 Flow Rate FiO2 10/14/16 05:55 98.1 103 18 112/71 97 Assessment & Plan Problem List: (1) Depression ICD Code: F32.9 (2) Anxiety ICD Code: F41.9 Assessment & Plan Titrate Pamelor to 75 mg at bedtime for mood. Continue Cytomel as ordered. Checked with the [facility], no placement coordinator available to see patient in consultation for elevated PRL; I will consult the hospitalist. Elevated PRL may be residual from when she was on Latuda. Continue to monitor on the inpatient unit. Continue other medications and care as ordered. Justification for Cont. Inpt. Medication changes in process. Monitoring for impairments in safety, so far none noted. Discharge Planning Anticipate discharge middle of this week. Request HC Surrog/Guard Advoc?: No Problem Qualifiers (1) Depression: Qualified Code: F33.2 - Severe episode of recurrent major depressive disorder, without psychotic features Junior Peraza MD Oct 14, 2016 11:46
[2016-10-14 16:02] VITALS: BP 121/77; PULSE 105; RESP 18; TEMP 98.1; O2SAT 100
--- NOTE | 2016-10-14 17:28 | PD.CONS ---
HPI Service [facility] Consult Requested By Psychiatry team Reason for Consult Mildly elevated PRL and borderline low FT4. Primary Care Physician No Primary Care Physician Diagnoses: History of Present Illness Written by Guera Manning, acting as scribe for Dr. Page on 10/14/16 at 17:10. Patient is a 31-year-old female who initially came in to the hospital for evaluation of her severe depression. As per review of records, patient states she took 20 tablets of Xanax of unknown strength approximately prior to arrival at the hospital. She is now admitted to inpatient psychiatry unit for further evaluation. Consulted for mildly elevated PRL and borderline low FT4. Patient seen and examined today. She denies any primary medical history except for depression and anxiety. She states she is doing a lot better. Denies pain and discomfort. Denies SOB/ dyspnea. Denies chest pain, palpitations, headaches, dizziness. Denies fevers, chills, n/v/d. Denies dysuria. Review of Systems Except as stated in HPI: all other systems reviewed are Neg Past Family Social History Allergies: Coded Allergies: No Known Allergies (Verified , 10/08/16) Past Medical History Anxiety Depression Past Surgical History Deviated septum repair in 2002 Reported Medications Reported Meds & Active Scripts Active Reported Xanax (Alprazolam) 1 Mg Tab 1 Mg PO TID PRN Zoloft (Sertraline HCl) 100 Mg Tab 200 Mg PO DAILY Rexulti (Brexpiprazole) 0.5 Mg Tab 0.5 Mg PO DAILY Active Ordered Medications Current Medications Medications (Trade) Dose Ordered Sig/Nga Route Start Time Stop Time Status Last Admin (Ativan) 1 mg Q6H PRN PO 10/09/16 08:45 10/14/16 08:41 (Ativan Inj) 1 mg Q6H PRN IM 10/09/16 08:45 (Tylenol) 650 mg Q4H PRN PO 10/09/16 08:45 10/10/16 22:20 (Milk Of Magnesia Liq) 30 ml DAILY PRN PO 10/09/16 08:45 (Mag-Al Plus Susp Liq) 30 ml Q6H PRN PO 10/09/16 08:45 (Habitrol 21 Mg Patch.24 Hr) 1 patch DAILY T-DERMAL 10/09/16 09:00 Patient Own Medication PT OWN MED: BREXPIPRAZOLE (REXUL... DAILY PO 10/09/16 10:00 Hold Miscellaneous Information 1 HS T-DERMAL 10/09/16 21:00 (Atarax) 50 mg QID PRN PO 10/10/16 18:00 10/13/16 16:47 (Cytomel) 25 mcg DAILY PO 10/12/16 09:00 10/14/16 08:39 (Pamelor) 75 mg HS PO 10/14/16 21:00 (Desyrel) 50 mg HS PRN PO 10/14/16 16:00 Family History Mother has hypertension Social History Alcohol use occasionally Denies tobacco use Denies illicit drug use Physical Exam Vital Signs Vital Signs Date Time Temp Pulse Resp B/P Pulse Ox O2 Delivery O2 Flow Rate FiO2 10/14/16 16:02 98.1 105 18 121/77 100 10/14/16 05:55 98.1 103 18 112/71 97 Physical Exam GENERAL: This is a well-nourished, well-developed patient, in no apparent distress. SKIN: Warm and dry. HEAD: Normocephalic. EYES: Pupils equal round and reactive. Extraocular motions intact. No scleral icterus. No injection or drainage. ENT: Nose without bleeding, deformity noted. Throat without erythema. Uvula midline. Airway patent. NECK: Trachea midline. CARDIOVASCULAR: Regular rate and rhythm without murmurs, gallops, or rubs. RESPIRATORY: Clear to auscultation. Breath sounds equal bilaterally. No wheezes , rales, or rhonchi. GASTROINTESTINAL: Abdomen soft, non-tender, nondistended. No guarding. Bowel sounds active 4. MUSCULOSKELETAL: Extremities without clubbing, cyanosis, or edema. NEUROLOGICAL: Awake and alert. Oriented to person, place, time. Motor and sensory grossly within normal limits. Normal speech. Result Diagram: 10/10/16 0708 Assessment and Plan Problem List: (1) Benzodiazepine overdose ICD Code: T42.4X1A Status: Acute (2) Anxiety ICD Code: F41.9 Status: Acute (3) Depression ICD Code: F32.9 Status: Acute Assessment and Plan Patient is a 31-year-old female who initially came in to the hospital for evaluation of her severe depression. As per review of records, patient states she took 20 tablets of Xanax of unknown strength approximately prior to arrival at the hospital. She is now admitted to inpatient psychiatry unit for further evaluation. Consulted for mildly elevated PRL and borderline low FT4. Anxiety, Depression - Manage by psychiatry team Slightly elevated Prolactin - Initial Free T4 was slightly low but repeat was 0.78 WNL - Prolactin 24.3, mild elevation can be stress induced which can elevate levels up to 40ng/mL. Unlike prolactinomas which are benign tumors of the lactroph cell that can be as high as 50,000 ng/mL compared to other causes that rarely exceeds 200ng/mL. This slight elevation can also be caused by antipsychotic medications, SSRIs secondary to dopaminergic inhibition. - Random cortisol was within normal, TSH, FSH were all within normal. - Patient denies any symptomatology. Hyperlipidemia - Encourage dietary changes and exercise DVT prop ambulation Thank you for this consultation. Stable from Hospitalist standpoint. We will sign off. Reconsult as needed. This note was transcribed by PENG Ozuna. I, Dr. Raegan Page personally performed the history, physical exam, and medical decision making; and confirmed the accuracy of the information in the transcribed note. Authenticated by Dr. Raegan Page on 10/14/16 at 17:10. Code Status Full code Discussed Condition With Patient, nursing Problem Qualifiers (1) Depression: Qualified Code: F33.2 - Severe episode of recurrent major depressive disorder, without psychotic features Guera Amezquita Oct 14, 2016 17:28 Raegan Page MD Oct 15, 2016 18:52
[2016-10-14] MEDS: REMOVE OLD NICODERM (NICOTINE) PATCH T-DERMAL SCH (21:00)
[2016-10-14] MEDS: NORTRIPTYLINE HCL 25 MG CAP PO SCH (21:37)
[2016-10-14] MEDS: traZODone HCL 50 MG TAB PO PRN (21:37)
[2016-10-15 05:37] VITALS: BP 114/75; PULSE 84; RESP 18; TEMP 98.2
[2016-10-15] MEDS: NICOTINE 21 MG/24 HR PATCH T-DERMAL SCH (09:00)
[2016-10-15] MEDS: LIOTHYRONINE SODIUM 25 MCG TAB PO SCH (09:26)
--- NOTE | 2016-10-15 13:56 | PD.TTN ---
Patient Problems 1. Discharge planning 2. Medication compliance 3. Knowledge deficit 4. Lack of coping skills Progress Toward Goals Provider Input: Dr. Peraza had his treatment team meeting to discuss treatment plan, medication and discharge. Per Dr. Peraza patient will remain on unit. Patient's medication has been increased. Patient may be discharged Friday if patient continues to stablize and will follow up with therapist and psychiatrist Nurse Input: Patient's nurse Kimberly Mathews RN reports patient is seclusive this morning but pleasant when approached. No behavioral issues currently. Compliant with medication. Psych Therapist Input: Patient was found lying in her bed this morning. Patient was pleasant, cooperative but guarded, sad, depressed, affect blunted. Patient stated she was not suicidal or homicidal but was feeling depressed. Patient denies hearing any voices or does not present with any delusional content. Patient made fair eye contact. Patient speech was clear, organized and appropriate. Occupational Therapist Input: Group Specialist Murray Blackewll states patient attends 40% of groups with fair participation Laya Alvarez [facility] Oct 15, 2016 13:56
--- NOTE | 2016-10-15 15:05 | HHI.PYPN ---
Subjective Remarks Patient seen and examined with nurse and counselor. Chart reviewed. Case discussed in treatment team. Two of the counselors present at treatment team know patient from support groups run by the department and note that patient displays borderline pathology in this setting. On my exam, patient reports anxiety is less, but she remains depressed. We discuss timeframe for anticipated response to antidepressant. Denies active SI. Slept better last night. Engaging in unit activities. Tolerating meds well without side effects. No physical complaints. Plans to see Dr. Mills on discharge and continue with psychotherapist. I recommend that she consider discussing with psychotherapist titrating visit frequency from once weekly to twice weekly if feasible. Review of Systems Except as stated in HPI: all other systems reviewed are Neg Objective Alert: Yes [place]: Person, Place, Date, Situation Mood: Depressed Affect: Appropriate Memory Intact: Comment (Remains intact) Hallucinations: Other (No AVH) Delusions: No Delusion Type: Other (No delusions) Suicidal: Ideation (Denies suicidal ideation) Homicidal: Ideation (No HI) Insight/Judgment Fair Remarks No motoric abnormalities. Thought process linear. Grooming and hygiene good. Labs Labs reviewed. Vitals/IOs Vital Signs Date Time Temp Pulse Resp B/P Pulse Ox O2 Delivery O2 Flow Rate FiO2 10/15/16 05:37 98.2 84 18 114/75 10/14/16 16:02 100 Assessment & Plan Problem List: (1) Depression ICD Code: F32.9 (2) Anxiety ICD Code: F41.9 Assessment & Plan Continue Pamelor and Cytomel as ordered. Hospitalist input noted and appreciated. Continue other medications and care as ordered. Justification for Cont. Inpt. Risk for decompensation in less restrictive environment. Discharge Planning Pending stabilization. I anticipate the patient will be stable for discharge by the end of the week. Patient tells us that will be securing and dispensing meds, and I have instructed counselor to confirm this with . Patient consents to have us call for this purpose. Request HC Surrog/Guard Advoc?: No Problem Qualifiers (1) Depression: Qualified Code: F33.2 - Severe episode of recurrent major depressive disorder, without psychotic features Junior Peraza MD Oct 15, 2016 15:05
[2016-10-15 15:27] VITALS: BP 124/58; PULSE 121; RESP 18; TEMP 98.7; O2SAT 97
[2016-10-15] MEDS: LORazepam 1 MG TAB PO PRN (17:43)
[2016-10-15] MEDS: traZODone HCL 50 MG TAB PO PRN (20:40)
[2016-10-15] MEDS: NORTRIPTYLINE HCL 25 MG CAP PO SCH (20:40)
[2016-10-15] MEDS: REMOVE OLD NICODERM (NICOTINE) PATCH T-DERMAL SCH (20:43)
[2016-10-16 05:39] VITALS: BP 100/64; PULSE 110; RESP 18; TEMP 98; O2SAT 99
[2016-10-16] MEDS: NICOTINE 21 MG/24 HR PATCH T-DERMAL SCH (09:00)
[2016-10-16] MEDS: LIOTHYRONINE SODIUM 25 MCG TAB PO SCH (09:18)
--- NOTE | 2016-10-16 12:27 | HHI.PYPN ---
Subjective Remarks Patient seen and examined with nurse. Chart reviewed. Case discussed with nursing staff. On my examination today, the patient complains of ongoing depression, although she is able to brighten when distracted and participating in unit activities. Anxiety somewhat less. Denies suicidal ideation. Denies side effects from medications. No physical complaints. Review of Systems Except as stated in HPI: all other systems reviewed are Neg Objective Alert: Yes [place]: Person, Place, Date, Situation Mood: Depressed Affect: Appropriate Memory Intact: Comment (intact) Hallucinations: Other (no hallucinations) Delusions: No Delusion Type: Other (no delusions elicited) Suicidal: Ideation (denies SI) Homicidal: Ideation (No HI) Insight/Judgment Fair Remarks No motor abnormalities noted. Thought process linear. Grooming and hygiene fair. Labs Labs reviewed. Vitals/IOs Vital Signs Date Time Temp Pulse Resp B/P Pulse Ox O2 Delivery O2 Flow Rate FiO2 10/16/16 05:39 98.0 110 18 100/64 99 Assessment & Plan Problem List: (1) Depression ICD Code: F32.9 (2) Anxiety ICD Code: F41.9 Assessment & Plan Continue Pamelor and Cytomel as ordered. Might consider further titration of the Pamelor. Also to consider obtaining a nortriptyline level. Adjust anxiolytic PRN dosing. Continue to monitor on the inpatient unit. Continue other medications and care as ordered. Justification for Cont. Inpt. High risk for decompensation in less restrictive environment. Discharge Planning Pending psychiatric stabilization. Request HC Surrog/Guard Advoc?: No Problem Qualifiers (1) Depression: Qualified Code: F33.2 - Severe episode of recurrent major depressive disorder, without psychotic features Junior Peraza MD Oct 16, 2016 12:27
[2016-10-16] MEDS: LORazepam 1 MG TAB PO PRN (13:18)
[2016-10-16 18:03] VITALS: BP 146/85; PULSE 118; RESP 18; TEMP 98.1; O2SAT 100
[2016-10-16] MEDS ORDERED: LORazepam 1 MG TAB PO PRN (20:45)
[2016-10-16] MEDS ORDERED: LORazepam 2 MG/ML VIAL IM PRN (20:45)
[2016-10-16] MEDS: NORTRIPTYLINE HCL 25 MG CAP PO SCH (21:22)
[2016-10-16] MEDS: traZODone HCL 50 MG TAB PO PRN (21:40)
[2016-10-17 06:05] VITALS: BP 105/52; PULSE 108; RESP 18; TEMP 97.9; O2SAT 99
[2016-10-17] MEDS: LIOTHYRONINE SODIUM 25 MCG TAB PO SCH (08:49)
--- NOTE | 2016-10-17 12:41 | HHI.PYPN ---
Subjective Remarks Patient seen and examined with nurse. Chart reviewed. Case discussed with nursing staff. On my examination today, the patient is hopeful for discharge soon. Mood continues to improve although she remains somewhat depressed. Anxiety lessened. No SI or HI. Denies side effects from medications. No physical complaints. She would like to titrate Pamelor one more time prior to discharge. Review of Systems Except as stated in HPI: all other systems reviewed are Neg Objective Alert: Yes [place]: Person, Place, Date, Situation Mood: Depressed (improving) Affect: Appropriate Memory Intact: Comment (intact) Hallucinations: Other (no AVH) Delusions: No Delusion Type: Other (no delusional material elicited) Suicidal: Ideation (no SI) Homicidal: Ideation (no HI) Insight/Judgment Fair Remarks No motor abnormalities noted. Thought process linear. Grooming and hygiene good. Speech within normal limits for rate, tone and volume. Focus and concentration seem improved versus earlier in hospital stay. Labs Labs reviewed. Vitals/IOs Vital Signs Date Time Temp Pulse Resp B/P Pulse Ox O2 Delivery O2 Flow Rate FiO2 10/17/16 06:05 97.9 108 18 105/52 99 Intake and Output 10/16/16 10/16/16 10/17/16 08:00 16:00 00:00 Intake Total 240 ml Balance 240 ml Assessment & Plan Problem List: (1) Depression ICD Code: F32.9 (2) Anxiety ICD Code: F41.9 Assessment & Plan Titrate Pamelor to 100 mg at bedtime. Risks and benefits discussed with the patient including the potential risk of serotonin syndrome. Continue Cytomel as ordered. Continue other medications and care as ordered. Justification for Cont. Inpt. Medication change Discharge Planning Possible discharge tomorrow, Friday. Counselor to contact to ensure that he is willing to secure medications prior to discharge. Request HC Surrog/Guard Advoc?: No Problem Qualifiers (1) Depression: Qualified Code: F33.2 - Severe episode of recurrent major depressive disorder, without psychotic features Junior Peraza MD Oct 17, 2016 12:41
[2016-10-17 16:51] VITALS: BP 135/67; PULSE 84; RESP 18; TEMP 88.7; O2SAT 97
[2016-10-17] MEDS ORDERED: NORTRIPTYLINE HCL 25 MG CAP PO SCH (21:00)
[2016-10-17] MEDS: traZODone HCL 50 MG TAB PO PRN (21:27)
[2016-10-18 05:34] VITALS: BP 117/69; PULSE 100; RESP 16; TEMP 97.9
[2016-10-18] MEDS: LIOTHYRONINE SODIUM 25 MCG TAB PO SCH (08:20)
[2016-10-18] MEDS ORDERED: TRAZ50TA12 PO (11:06)
[2016-10-18] MEDS ORDERED: LORA-474 PO (11:06)
[2016-10-18] MEDS ORDERED: CYTO25TA PO (11:06)
[2016-10-18] MEDS ORDERED: NORT25CA PO (11:06)
--- NOTE | 2016-10-18 11:06 | HHI.DS ---
Psychiatry Discharge Summary Inpatient Psychiatric care?: Yes Advance Directive: No Reason Not Provided: Due to Patient Condition Mental Health AdvanceDirective: No Health Care Proxy: No Admission Admission Date Oct 09, 2016 at 08:35 Admission Diagnosis: (1) Depression ICD Code: F32.9 (2) Anxiety ICD Code: F41.9 Brief History The patient is a 31-year-old woman, domiciled with her in [facility], unemployed, with psychiatric history of major depressive disorder, anxiety, benzodiazepine dependence, multiple psychiatric admissions, previous suicidal attempts, self cutting behavior without SI, active outpatient psychiatric care, she is on Zoloft 200 mg, Xanax 1 3 times a day, Brexpiprazole , no significant medical history, who presents emergency department for evaluation for being "at the end of her rope". Patient states she took 20 tablets of Xanax of unknown strength approximate hour prior to arrival. She states she wasn't trying to hurt herself just trying to make herself feel better , but she has been having increased in severity, intensity and frequency suicidal thoughts and desire of self cutting. Patient reports that she has been having financial issues, also marital problems, she has been looking for a job for the last 3 months unsuccessfully. But, at the same time without any reason she has been increasingly hopeless, helpless, worthless, with decreased self-esteem, difficulty sleeping at night, increased anxiety, and decreased appetite. Patient denies visual and auditory hallucinations, she denies homicidal ideations. Patient is oriented 3, without any attention deficit, no gross cognitive impairment. Patient reports that she has been abusing Xanax, she is unable to quantify the amount that she is using everyday, but she seems to be insightful about her benzodiazepine addiction problem. At the moment of this evaluation patient does not seem to be drug seeking and she seems to be more committed with an admission for her depression. She denies the use of illicit drugs and she denies the use of alcohol. Tobacco Use In Past 30 Days: No Tobacco Past 30 Days Alcohol Use: Monthly or Less Hospital Course Patient was admitted to a locked, inpatient psychiatric unit. A general medical consultation was obtained. Appropriate precautions were in place throughout patient's hospital stay. Patient was seen and examined daily on the unit by psychiatry and also visited by counselor. Psychotropic medications were adjusted. Patient had improvement in presenting psychiatric symptomatology during the course of her hospital stay. There was no evidence of any suicidality or homicidality on the inpatient unit. The patient remained in good behavioral control and was medication compliant. On the day of discharge: Patient seen and examined with nurse. Chart reviewed. Case discussed with nursing staff. The patient has been no behavioral problem overnight. On my examination today, the patient is requesting discharge from the inpatient psychiatric unit. She denies any suicidal or homicidal ideation, intent or plan on direct questioning and contracts for safety. Mood is improved versus admission, although she remains somewhat depressed. No hopelessness or worthlessness articulated. No hypomanic or manic symptoms. Denies audiovisual hallucinations, and I can elicit no delusional material. She denies side effects from medications. Counselor confirms that has agreed to secure medications. Weighing the acute, chronic, and protective factors and based on the available evidence, I diving judge to a reasonable degree of medical certainty that the patient is at low imminent risk of harm to self or others from a mental illness as defined under the [place] act, and her level of function is adequate for outpatient care. Patient does not meet criteria for involuntary psychiatric hospitalization at this time and is requesting discharge from the inpatient psychiatric unit today. She will be discharged home with psychiatric follow-up as arranged by counselor. She is also to follow -up with primary care, and I have ordered her a blue card to facilitate this. I have counseled the patient to abstain from use of drugs or alcohol, particularly ENT CONSULTANT depressants that may interact with her psychotropics. I have counseled the patient regarding warning signs for need to return to the psychiatric emergency room as part of a general safety plan. Results Blood Pressure 117 / 69 Vital Signs Date Time Temp Pulse Resp B/P Pulse Ox O2 Delivery O2 Flow Rate FiO2 10/18/16 05:34 97.9 100 16 117/69 10/17/16 16:51 97 Item Value Date Time White Blood Count 5.7 TH/MM3 10/08/16 1900 Hemoglobin 11.4 GM/DL L 10/08/16 190 Platelet Count 267 TH/MM3 10/08/16 1900 Sodium Level 141 MEQ/L 10/10/16 0708 Potassium Level 3.9 MEQ/L 10/10/16 0708 Chloride Level 107 MEQ/L 10/10/16 0708 Carbon Dioxide Level 27.7 MEQ/L 10/10/16 0708 Blood Urea Nitrogen 16 MG/DL 10/10/16 07 Creatinine 0.91 MG/DL 10/10/16 0708 Aspartate Amino Transf (AST/SGOT) 12 U/L L 10/08/161899 Alanine Aminotransferase (ALT/SGPT) 20 U/L 10/08/16 190 Alkaline Phosphatase 99 U/L 10/08/16 190 Free Thyroxine 0.78 NG/DL 10/11/16 0814 Thyroid Stimulating Hormone 3rd Gen 2.360 uIU/ML 10/11/16 0814 Follicle Stimulating Hormone 4.4 mIU/mL 10/11/16 0814 Luteinizing Hormone 5.9 mIU/mL 10/11/16 0814 Prolactin 24.3 ng/mL H 10/11/16816 Random Cortisol 22.6 MCG/DL 10/11/16716 Urine Benzodiazepines Screen POS H 10/08/161899 Ethyl Alcohol Level LESS THAN 3 MG/DL 10/08/16 190 Summary of Procedures None done Imaging None done Pending results at discharge: No Medications # of Antipsychotic meds at D/C: 1 Approp Antipsych med options 1 - Minimum of three failed multiple trials of monotherapy. 2 - Documented plan to taper to monotherapy due to previous use of multiple meds OR cross-taper in progress at D/C. 3 - Documentation of augmentation of Clozapine. 4 - Justification other than those listed in allowable values 1-3, document here : Discharge Discharge Date: Oct 18, 2016 Discharge Diagnosis: (1) Recurrent major depressive disorder in partial remission Diagnosis: Principal ICD Code: F33.41 (2) Anxiety Diagnosis: Secondary ICD Code: F41.9 Mental Status Exam at Disch Patient is casually dressed. Patient is well groomed. Patient is awake and alert and oriented to person and hospital at least. No evidence of delirium. No motor abnormalities appreciated. Speech is within normal limits for rate, tone, volume. Language and fund of knowledge average. Focus and concentration intact. Memory grossly intact on clinical exam. Mood is improved versus admission. Anxiety lessened versus admission. Affect is fairly full and reactive. Thought process linear. No delusions elicited. Denies audiovisual hallucinations and does not appear internally stimulated. Denies suicidal or homicidal ideation, intent, or plan and contracts for safety. Insight and judgment seem fair. Pt Condition on Discharge: Stable Discharge Disposition: Discharge Home Discharge Instructions Diet Instructions: As Tolerated, No Restrictions Activities you can perform: Weight Bearing as [place] Scheduled Appointment: as per counselor's notes New Medications: Liothyronine (Cytomel) 25 Mcg Tab 25 MCG PO DAILY Mental Health Days 15 Ref 1 TAB Lorazepam (Ativan) 1 Mg Tab 0.5 MG PO Q6H PRN MODERATE TO SEVERE ANXIETY #7 Ref 1 TAB Nortriptyline (Nortriptyline) 25 Mg Cap 100 MG PO HS Mental Health Days 15 Ref 1 CAP Trazodone (Trazodone) 50 Mg Tab 50 MG PO HS PRN INSOMNIA Days 15 Ref 1 TAB Discontinued Medications: Alprazolam (Xanax) 1 Mg Tab 1 MG PO TID PRN ANXIETY Ref 0 TAB Brexpiprazole (Rexulti) 0.5 Mg Tab 0.5 MG PO DAILY TAB Sertraline (Zoloft) 100 Mg Tab 200 MG PO DAILY #30 Ref 0 TAB Discharge Time <= 30 minutes Discharge/Advance Care Plan Health Problems: (1) Depression (2) Anxiety Goals to promote your health * To prevent worsening of your condition and complications * To maintain your health at the optimal level Directions to meet your goals Take your medications as prescribed Follow your dietary instruction Follow activity as directed Keep your appointments as scheduled Take your immunizations and boosters as scheduled If your symptoms worsen call your PCP, if no PCP go to Urgent Care Center or Emergency Room For 07/10 questions related to your inpatient stay or results of tests pending at discharge, please contact Dr. Junior Peraza at Smoking is Dangerous to Your Health. Avoid second hand smoking Problem Qualifiers (1) Depression: Qualified Code: F33.2 - Severe episode of recurrent major depressive disorder, without psychotic features Junior Peraza MD Oct 18, 2016 11:06
== END 2016-10-18 15:19 | disposition home or self-care (01) | DRG 885 ==
LOC: NEPD 18:30 → NEDA 10-09 08:35 → H260 10-09 10:16
PROVIDERS: ADMIT Psychiatry & Neurology Psychiatry; ATTEND Psychiatry & Neurology Psychiatry
DX: F33.2 Major depressive disorder, recurrent severe without psychotic features (principal); R45.851 Suicidal ideations; F13.20 Sedative, hypnotic or anxiolytic dependence, uncomplicated; R56.9 Unspecified convulsions; F41.9 Anxiety disorder, unspecified; F60.9 Personality disorder, unspecified; F60.3 Borderline personality disorder; E78.5 Hyperlipidemia, unspecified; T42.4X1A Poisoning by benzodiazepines, accidental (unintentional), initial encounter; Z59.9 Problem related to housing and economic circumstances, unspecified; Z63.0 Problems in relationship with spouse or partner
CPT/HCPCS: 80048; 80053; 80061; 80307; 81001; 82533; 83001; 83002; 83036; 84146; 84439; 84443; 84703; 85025; 93005; Q0163

== ENCOUNTER 2016-11-01 11:33 | Emergency (ER) | payer SELFPAY ==
[~2016-11-01] VITALS: Ht 160 cm; Wt 75.0 kg
[~2016-11-01 11:33] MED LIST changes: -ARIP1TAB5 PO; +CYTO25TA PO; -DULO20 PO; +NORT25CA PO; +TRAZ50TA12 PO
[2016-11-01 11:36] VITALS: BP 112/78; PULSE 122; RESP 15; TEMP 98.4; O2SAT 99
[2016-11-01 12:30] VITALS: BP 118/64; PULSE 95; RESP 16; O2SAT 99
[2016-11-01] MEDS ORDERED: KETOROLAC TROMETHAMINE 30 MG/ML (IVP) VIAL IV PUSH ONE (12:45)
[2016-11-01] MEDS ORDERED: SODIUM CHLOR 0.9% 1000 ML INJ 1,000 ML IV ONE (12:45)
[2016-11-01] MEDS ORDERED: LORazepam 1 MG TAB PO ONE (12:45)
[2016-11-01 13:23] LABS: AUTOMATED NEUTROPHIL # 4.2 TH/MM3 (1.8-7.7); BASOPHIL % 0.4 % (0.0-2.0); EOSINOPHIL # 0.1 TH/MM3 (0-0.4); EOSINOPHIL % 1.5 % (0.0-4.0); HEMATOCRIT 36.2 % (35.0-46.0); HEMO FLAGS DIFF FINAL; LYMPH % 22.9 % (9.0-44.0); LYMPHOCYTE # 1.4 TH/MM3 (1.0-4.8); MEAN CELL VOLUME 77.6 FL (80.0-100.0); MEAN CORPUSCULAR HEMOGLOBIN 25.3 PG (27.0-34.0); MEAN CORPUSCULAR HGB CONC 32.6 % (32.0-36.0); MONO % 6.7 % (0.0-8.0); NEUT % 68.5 % (16.0-70.0); PLATELET COUNT 225 TH/MM3 (150-450); RED BLOOD COUNT 4.67 MIL/MM3 (4.00-5.30); RED CELL DISTRIBUTION WIDTH 16.2 % (11.6-17.2); WHITE BLOOD COUNT 6.1 TH/MM3 (4.0-11.0)
[2016-11-01 13:41] LABS: ALT (GPT) 18 U/L (10-53); ANION GAP 6 MEQ/L (5-15); AST (GOT) 12 U/L (15-37); BICARBONATE 28.5 MEQ/L (21.0-32.0); BLOOD UREA NITROGEN 8 MG/DL (7-18); CHLORIDE 104 MEQ/L (98-107); GLOMERULAR FILTRATION RATE 69 ML/MIN (>89); POTASSIUM 3.9 MEQ/L (3.5-5.1); SODIUM (NA) 138 MEQ/L (136-145)
[2016-11-01 13:44] LABS: ALKALINE PHOSPHATASE 87 U/L (45-117); TOTAL BILIRUBIN ADULT 0.3 MG/DL (0.2-1.0)
[2016-11-01] MEDS ORDERED: METHOCARBAMOL 500 MG TAB PO ONE (13:45)
[2016-11-01] MEDS ORDERED: LORA-474 PO (13:57)
--- NOTE | 2016-11-01 13:57 | PD ---
HPI Chief Complaint: Medication Refill Request Time Seen by Provider: 12:27 Travel History International Travel<30 days: No Contact w/Intl Traveler<30days: No Traveled to known affect area: No History of Present Illness HPI Patient is a 31-year-old female who comes in requesting a refill of her Ativan. She says she is having withdrawal symptoms. She says she has a headache with dry eyes. She says she feels shaky and anxious. She says she has been out of her Ativan for the past week, and her symptoms started yesterday. She denies nausea or vomiting. She complains of dry and itchy eyes. She denies fever or chills. She says she has an appointment with a primary care physician on Friday and her psychiatrist on . PFSH Past Medical History Hx Anticoagulant Therapy: No Asthma: No Anxiety: Yes Depression: Yes Cardiovascular Problems: No Chemotherapy: No COPD: No Cerebrovascular Accident: No Diabetes: No Diminished Hearing: No Psychiatric: Yes Respiratory: No Immunizations Current: Yes ?: Not LMP: 11/01/16 : 0 Para: 0 Miscarriage: 0 : 0 Past Surgical History Hysterectomy: No Other Surgery: Yes (DEVIATED SEPTUM REPAIR-2002) Social History Alcohol Use: Yes (OCC) Tobacco Use: No Substance Use: No Allergies-Medications (Allergen,Severity, Reaction): Coded Allergies: No Known Allergies (Verified , 11/01/16) Reported Meds & Prescriptions Reported Meds & Active Scripts Active Trazodone (Trazodone HCl) 50 Mg Tab 50 Mg PO HS PRN 15 Days Nortriptyline (Nortriptyline HCl) 25 Mg Cap 100 Mg PO HS 15 Days Ativan (Lorazepam) 1 Mg Tab 0.5 Mg PO Q6H PRN Cytomel (Liothyronine Sodium) 25 Mcg Tab 25 Mcg PO DAILY 15 Days Review of Systems Except as stated in HPI: all other systems reviewed are Neg General / Constitutional: No: Fever, Chills Eyes: No: Blurred Vision HENT: Positive: Headaches, No: Lightheadedness Cardiovascular: No: Chest Pain or Discomfort Respiratory: No: Shortness of Breath Gastrointestinal: No: Nausea, Vomiting Genitourinary: No: Dysuria Musculoskeletal: No: Edema Skin: No Rash, No Change in Pigmentation Neurologic: No: Weakness, Dizziness Physical Exam Narrative GENERAL: Awake and alert, in no acute distress. SKIN: Focused skin assessment warm/dry. HEAD: Atraumatic. Normocephalic. EYES: Pupils equal and round. No scleral icterus. ENT: Mucous membranes pink and moist. NECK: Trachea midline. No JVD. CARDIOVASCULAR: Tachycardia. No murmur appreciated. RESPIRATORY: No accessory muscle use. Clear to auscultation. Breath sounds equal bilaterally. GASTROINTESTINAL: Abdomen soft, non-tender, nondistended. MUSCULOSKELETAL: No obvious deformities. No clubbing. No cyanosis. No edema. NEUROLOGICAL: Awake and alert. No obvious cranial nerve deficits. Motor grossly within normal limits. Normal speech. PSYCHIATRIC: Appropriate mood and affect; insight and judgment normal. Data Data Last Documented VS Vital Signs Date Time Temp Pulse Resp B/P Pulse Ox O2 Delivery O2 Flow Rate FiO2 11/01/16 12:30 95 16 118/64 99 Room Air 11/01/16 11:36 98.4 Orders Iv Access Insert/Monitor (11/01/16 12:39) Complete Blood Count With Diff (11/01/16 12:39) Comprehensive Metabolic Panel (11/01/16 12:39) Sodium Chlor 0.9% 1000 Ml Inj (Ns 1000 M (11/01/16 12:45) Ketorolac Inj (Toradol Inj) (11/01/16 12:45) Lorazepam (Ativan) (11/01/16 12:45) Methocarbamol (Robaxin) (11/01/16 13:45) Labs Laboratory Tests Test 11/01/16 12:45 White Blood Count 6.1 TH/MM3 Red Blood Count 4.67 MIL/MM3 Hemoglobin 11.8 GM/DL Hematocrit 36.2 % Mean Corpuscular Volume 77.6 FL Mean Corpuscular Hemoglobin 25.3 PG Mean Corpuscular Hemoglobin 32.6 % Concent Red Cell Distribution Width 16.2 % Platelet Count 225 TH/MM3 Mean Platelet Volume 9.5 FL Neutrophils (%) (Auto) 68.5 % Lymphocytes (%) (Auto) 22.9 % Monocytes (%) (Auto) 6.7 % Eosinophils (%) (Auto) 1.5 % Basophils (%) (Auto) 0.4 % Neutrophils # (Auto) 4.2 TH/MM3 Lymphocytes # (Auto) 1.4 TH/MM3 Monocytes # (Auto) 0.4 TH/MM3 Eosinophils # (Auto) 0.1 TH/MM3 Basophils # (Auto) 0.0 TH/MM3 CBC Comment DIFF FINAL Differential Comment Sodium Level 138 MEQ/L Potassium Level 3.9 MEQ/L Chloride Level 104 MEQ/L Carbon Dioxide Level 28.5 MEQ/L Anion Gap 6 MEQ/L Blood Urea Nitrogen 8 MG/DL Creatinine 0.94 MG/DL Estimat Glomerular Filtration 69 ML/MIN Rate Random Glucose 93 MG/DL Calcium Level 8.7 MG/DL Total Bilirubin 0.3 MG/DL Aspartate Amino Transf 12 U/L (AST/SGOT) Alanine Aminotransferase 18 U/L (ALT/SGPT) Alkaline Phosphatase 87 U/L Total Protein 7.7 GM/DL Albumin 4.0 GM/DL [facility] Medical Decision Making Medical Screen Exam Complete: Yes Emergency Medical Condition: Yes Medical Record Reviewed: Yes Differential Diagnosis Withdrawal versus drug-seeking behavior versus dehydration versus electrolyte abnormality Narrative Course Patient is a 31-year-old female who comes in requesting a refill of her Ativan. Exam shows some tachycardia, no other acute abnormalities. IV established, labs sent. Labs show no acute abnormalities. Patient given IV fluids, Toradol, Ativan. Immediately her heart rate improved. I explained to the patient that benzodiazepines are dangerous and addictive, therefore we do not like to prescribe them from the ED. I also explained that it is unlikely she will be prescribed these medications at the clinic. I will give her prescription for 3 pills, to prevent withdrawal through the weekend. She is advised to keep her appointments. Advised to return to the ED as needed for any worsening symptoms. Diagnosis Primary Impression: Anxiety Patient Instructions: Anxiety (ED), Benzodiazepine Abuse (ED), General Instructions Additional Instructions: Follow-up with her scheduled appointments. Return to the ED as needed for any worsening symptoms. Scripts Lorazepam (Ativan)1 Mg Tab1 Mg PO DAILY PRN (ANXIETY AND/OR AGITATION) #3 TAB Ref 0 Prov:Lesli Parks MD 11/01/16 Disposition: 01 DISCHARGE HOME Condition: Stable Lesli Parks MD Nov 01, 2016 13:57
[2016-11-01 14:40] VITALS: BP 112/62
== END 2016-11-01 14:15 | disposition home or self-care (01) ==
LOC: NEPD 11:33
DX: F41.9 Anxiety disorder, unspecified (principal); R00.0 Tachycardia, unspecified; R51 Headache; H57.8 Other specified disorders of eye and adnexa; F32.9 Major depressive disorder, single episode, unspecified; Z79.899 Other long term (current) drug therapy; Z76.0 Encounter for issue of repeat prescription
CPT/HCPCS: 80053; 85025; 96374; 99284; J1885; J7030

== ENCOUNTER 2017-01-18 22:22 | Observation (INO) | payer SELFPAY ==
[~2017-01-18] VITALS: Ht 160 cm; Wt 82.0 kg
[~2017-01-18 22:22] MED LIST changes: -CYTO25TA PO; +LIOT25 PO
[2017-01-18 22:31] VITALS: BP 139/82; PULSE 120; RESP 16; TEMP 97.6; O2SAT 100
[2017-01-18] MEDS ORDERED: ACTIVATED CHARCOAL/SORBITOL LIQUID 25 GM/120 ML BTL NG ONE (22:45)
[2017-01-18 22:47] VITALS: BP 121/85; PULSE 113; RESP 16; O2SAT 100
[2017-01-18] MEDS ORDERED: XANA1TAB2 PO (22:51)
[2017-01-18] MEDS ORDERED: NORT75CA PO (22:51)
--- NOTE | 2017-01-18 23:52 | PD ---
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 Past Medical History Hx Anticoagulant Therapy: No Asthma: No Anxiety: Yes Depression: Yes Cardiovascular Problems: No Chemotherapy: No COPD: No Cerebrovascular Accident: No Diabetes: No Diminished Hearing: No Psychiatric: Yes Respiratory: No Immunizations Current: Yes ?: Not LMP: 01/03/17 : 0 Para: 0 Miscarriage: 0 : 0 Past Surgical History Hysterectomy: No Other Surgery: Yes (DEVIATED SEPTUM REPAIR-2002) Social History Alcohol Use: Yes ([facility]) Tobacco Use: No Substance Use: No Allergies-Medications (Allergen,Severity, Reaction): Coded Allergies: No Known Allergies (Verified Allergy, Unknown, 01/19/17) Reported Meds & Prescriptions Reported Meds & Active Scripts Active Trazodone (Trazodone HCl) 50 Mg Tab 50 Mg PO HS PRN 15 Days Reported Nortriptyline (Nortriptyline HCl) 75 Mg Cap 75 Mg PO HS Xanax (Alprazolam) 1 Mg Tab 1 Mg PO TID PRN Review of Systems Except as stated in HPI: all other systems reviewed are Neg (denies CP no nausea no vomit NO GI symptoms) Physical Exam Narrative GENERAL: slightly flat affect asking when she can leave from the beginning of my exam initial heart rate 85 later became steadily tachy 112-118 SKIN: Warm and dry. HEAD: Atraumatic. Normocephalic. EYES: Pupils equal and round. No scleral icterus. No injection or drainage. ENT: No nasal bleeding or discharge. Mucous membranes pink and moist. NECK: Trachea midline. No JVD. CARDIOVASCULAR: Regular rate and rhythm. became tachycardic as evening went on to 118bpm RESPIRATORY: No accessory muscle use. Clear to auscultation. Breath sounds equal bilaterally. GASTROINTESTINAL: Abdomen soft, non-tender, nondistended. Hepatic and splenic margins not palpable. MUSCULOSKELETAL: Extremities without clubbing, cyanosis, or edema. No obvious deformities. NEUROLOGICAL: Awake and alert. No obvious cranial nerve deficits. Motor grossly within normal limits. Five out of 5 muscle strength in the arms and legs. Normal speech. PSYCHIATRIC: Appropriate mood and affect; insight and judgment normal. Data Data Last Documented VS Vital Signs Date Time Temp Pulse Resp B/P (MAP) Pulse Ox O2 Delivery O2 Flow Rate FiO2 01/19/17 04:00 110 16 120/79 (93) 100 Room Air 01/18/17 22:31 97.6 Orders Orders Charcoal Active-Sorbitol Liq (Charcoal A (01/18/17 22:45) Basic Metabolic Panel (Bmp) (01/19/17 06:00) Complete Blood Count With Diff (01/19/17 06:00) Drug Screen, Random Urine (01/18/17 22:40) Thyroid Stimulating Hormone (01/19/17 06:00) Hepatic Functional Panel (01/19/17 06:00) Lipid Profile (01/19/17 06:00) Vital Signs (Pediatrics) PARUL.Q12H.E (01/18/17 22:40) Electrocardiogram-Peds (01/18/17 ) Instruction (01/18/17 22:40) Electrocardiogram (01/18/17 ) Tylenol (Acetaminophen) (01/18/17 22:40) Alcohol (Ethanol) (01/18/17 22:40) Electrocardiogram (01/19/17 ) Lorazepam (Ativan) (01/19/17 03:15) Hemoglobin (Hgb) A1c (01/19/17 06:00) Call Poison Control (01/19/17 05:29) ^ Sitter (01/19/17 05:29) Consult Psychiatry (01/19/17 ) Place In Observation (01/19/17 ) Vital Signs (Adult) Q4H (01/19/17 05:31) Neuro Checks Q4H (01/19/17 05:31) Activity Oob With Assistance (01/19/17 05:31) Stone Driller Helper / Telemetry .CONTINUOUS (01/19/17 05:31) Diet Regular Basic (01/19/17 Breakfast) Sodium Chlor 0.9% 1000 Ml Inj (Ns 1000 M (01/19/17 05:31) Sodium Chloride 0.9% Flush (Ns Flush) (01/19/17 05:45) Sodium Chloride 0.9% Flush (Ns Flush) (01/19/17 09:00) Comprehensive Metabolic Panel (01/20/17 06:00) Complete Blood Count With Diff (01/20/17 06:00) Scd Bilateral/Knee High PARUL.BID (01/19/17 05:31) Siva Bilateral/Knee High PARUL.QSHIFT (01/19/17 05:31) Naloxone Inj (Narcan Inj) (01/19/17 05:45) Admit Order (Ed Use Only) (01/19/17 ) Labs Laboratory Tests Test 01/18/17 23:00 Blood Urea Nitrogen 15 MG/DL Creatinine 1.06 MG/DL Random Glucose 86 MG/DL Total Protein 7.6 GM/DL Albumin 3.5 GM/DL Calcium Level 8.5 MG/DL Alkaline Phosphatase 99 U/L Aspartate Amino Transf (AST/SGOT) 26 U/L Alanine Aminotransferase (ALT/SGPT) 60 U/L Total Bilirubin 0.3 MG/DL Direct Bilirubin 0.1 MG/DL Sodium Level 140 MEQ/L Potassium Level 5.0 MEQ/L Chloride Level 108 MEQ/L Carbon Dioxide Level 21.2 MEQ/L Anion Gap 11 MEQ/L Estimat Glomerular Filtration Rate 60 ML/MIN Indirect Bilirubin 0.2 MG/DL Triglycerides Level 223 MG/DL Cholesterol Level 269 MG/DL LDL Cholesterol 171 MG/DL HDL Cholesterol 53.4 MG/DL Cholesterol/HDL Ratio 5.03 RATIO Thyroid Stimulating Hormone 3rd Gen 3.090 uIU/ML Acetaminophen Level LESS THAN 2.0 MCG/ML Ethyl Alcohol Level LESS THAN 3 MG/DL MDM Medical Decision Making Medical Screen Exam Complete: Yes Emergency Medical Condition: Yes Differential Diagnosis tricyclic Overdose and tachycardia related to stimulant effect of the 500 mg total she took prior to arrival alos HR could be related to anxiety Narrative Course pt is oberved for 7 hrs repeat EKG to look for any signs of QRS widening and QRS = 93 , 85, 90 on multiple EKGs never any EKG signs of tricyclic toxicity, close monitoring and repeat exams of MS and Cardiac and BP , all remained normal except tachycardia developed and i was unable to clear her to [place] act her , admitted to tele to dr Norwood for conitnued cardiac Monitoring Critical Care Narrative critical care with Activated Charcoal PO 50 gr monitoring MS and BP and multiple repeat EKG CC time 120 mins Diagnosis Primary Impression: TCA (tricyclic antidepressant) overdose of undetermined intent Qualified Codes: T43.014A - Poisoning by tricyclic antidepressants, undetermined, initial encounter Additional Impression: Suicide attempt Admitting Information Admitting Physician Requests: Admit Condition: Stable Blake Miranda MD Jan 18, 2017 23:52
[2017-01-19] VITALS (13 sets, daily range): BP systolic 111–128; BP diastolic 40–85; PULSE 80–130; RESP 16–20; TEMP 96.8–98.9; O2SAT 96–100
[2017-01-19] MEDS ORDERED: LORazepam 1 MG TAB PO ONE (03:15)
[2017-01-19 04:08] LABS: ALT (GPT) 60 U/L (10-53); ANION GAP 11 MEQ/L (5-15); AST (GOT) 26 U/L (15-37); BICARBONATE 21.2 MEQ/L (21.0-32.0); BLOOD UREA NITROGEN 15 MG/DL (7-18); CHLORIDE 108 MEQ/L (98-107); GLOMERULAR FILTRATION RATE 60 ML/MIN (>89); SODIUM (NA) 140 MEQ/L (136-145)
[2017-01-19 04:16] LABS: ALKALINE PHOSPHATASE 99 U/L (45-117); HDL CHOLESTEROL 53.4 MG/DL (40.0-60.0); INDIRECT BILIRUBIN 0.2 MG/DL (0.0-0.8); LDL CHOLESTEROL 171 MG/DL (0-99); TOTAL BILIRUBIN ADULT 0.3 MG/DL (0.2-1.0)
[2017-01-19 04:24] LABS: ACETAMINOPHEN LESS THAN 2.0 MCG/ML (10.0-30.0)
[2017-01-19] MEDS ORDERED: NALOXONE HCL 0.4 MG/ML AMP IV PUSH PRN (05:45)
[2017-01-19] MEDS ORDERED: SODIUM CHLORIDE 0.9% FLUSH 10 ML FLUSH IV FLUSH PRN (05:45)
[2017-01-19] MEDS: SODIUM CHLOR 0.9% 1000 ML INJ 1,000 ML IV SCH ×2 (06:18→16:41)
[2017-01-19] MEDS: SODIUM CHLORIDE 0.9% FLUSH 10 ML FLUSH IV FLUSH SCH ×2 (08:19→20:04)
[2017-01-19 09:18] LABS: AUTOMATED NEUTROPHIL # 4.1 TH/MM3 (1.8-7.7); BASOPHIL # 0.1 TH/MM3 (0-0.2); BASOPHIL % 0.8 % (0.0-2.0); EOSINOPHIL # 0.1 TH/MM3 (0-0.4); EOSINOPHIL % 1.8 % (0.0-4.0); HEMATOCRIT 34.5 % (35.0-46.0); HEMO FLAGS DIFF FINAL; LYMPHOCYTE # 1.5 TH/MM3 (1.0-4.8); MEAN CORPUSCULAR HGB CONC 32.1 % (32.0-36.0); MONO % 10.1 % (0.0-8.0); NEUT % 64.3 % (16.0-70.0); PLATELET COUNT 248 TH/MM3 (150-450); RED BLOOD COUNT 4.42 MIL/MM3 (4.00-5.30); RED CELL DISTRIBUTION WIDTH 16.1 % (11.6-17.2); WHITE BLOOD COUNT 6.5 TH/MM3 (4.0-11.0)
--- NOTE | 2017-01-19 12:31 | EKG ---
Date Performed: 01/18/2017 Time Performed: 22:42:40 PTAGE: 31 years EKG: SINUS TACHYCARDIA ABNORMAL RHYTHM ECG PREVIOUS TRACING : 10/10/2016 13.33 Compared to prior tracing no significant change DOCTOR: Roberto Palacios Interpretating Date/Time 01/19/2017 12:29:27
--- NOTE | 2017-01-19 12:31 | EKG ---
Date Performed: 01/18/2017 Time Performed: 23:56:25 PTAGE: 31 years EKG: SINUS TACHYCARDIA ABNORMAL RHYTHM ECG PREVIOUS TRACING : 01/18/2017 22.42 Compared to prior tracing no significant change DOCTOR: Roberto Palacios Interpretating Date/Time 01/19/2017 12:29:34
--- NOTE | 2017-01-19 12:32 | EKG ---
Date Performed: 01/19/2017 Time Performed: 05:14:59 PTAGE: 31 years EKG: SINUS TACHYCARDIA ABNORMAL RHYTHM ECG PREVIOUS TRACING : 01/18/2017 23.56 Compared to prior tracing no significant change DOCTOR: Roberto Palacios Interpretating Date/Time 01/19/2017 12:30:12
--- NOTE | 2017-01-19 12:32 | EKG ---
Date Performed: 01/19/2017 Time Performed: 01:17:15 PTAGE: 31 years EKG: SINUS TACHYCARDIA ABNORMAL RHYTHM ECG PREVIOUS TRACING 01/18/17 Compared to prior tracing no significant change DOCTOR: Roberto Palacios Interpretating Date/Time 01/19/2017 12:29:58
[2017-01-19 13:35] LABS: HEMOGLOBIN A1a 1.2 %; HEMOGLOBIN A1b 1.8 %; HEMOGLOBIN Ao 86.3 %; HEMOGLOBIN LA1C 1.8 %; HEMOGLOBIN P3 3.3 %
--- NOTE | 2017-01-19 16:55 | PD.PSY.CON ---
Provisional Diagnosis Admission Date Jan 19, 2017 at 05:36 [place]. Major depressive disorder, recurrent, severe without psychotic features History of Present Illness Service Psychiatry Consult Requested By Dr. Christensen Reason for Consult Suicide attempt via overdose Primary Care Physician No Primary Care Physician HPI Patient is a 31-year-old woman, , domicile with , unemployed, with a past psychiatric history of major depressive disorder, anxiety disorder, PTSD who with multiple psychiatric hospitalizations (last being in October. [facility]) , 2 previous suicide attempts (last in October 2016 via overdose), history of self-injurious behavior via cutting, was brought in by after recent suicide attempt via overdose with tricyclic antidepressants which psychiatry was consulted for evaluation. Patient was found in emergency room sitting on hospital bed with at bedside but interviewed alone initially. Patient states that she had been feeling very stressed recently due to difficulty keeping a job, financial stress, feeling useless, not been happy where she lives and not having transportation. Patient reports that she has been dealing with depression since her teenage years and has been on many medication regimens and felt that it has not been helpful recently. Patient reports that after her last hospitalizations patient continued to take medications for about a month but then decided not to take them anymore as she felt they were not helpful despite having follow-up with her outpatient psychiatric nurse practitioner who says hasn't changed her regimen to Xanax, Bripiprazole which she did not take as directed as well as continued on nortriptyline. Patient states that recently her sleep has been "off-and-on", decreased energy, concentration but no change in appetite. Patient states her mood has been "down" along with feeling helpless and hopeless and having suicidal ideation out of for a long time worsening recently. Patient reports that yesterday she had been feeling depressed and endorsed to her that she was having suicidal ideations and had decided to go into her bedroom and took 5-6 tablets of nortriptyline but then stopped stating that she wanted to not be alive anymore but for some reason that I continues taking more pills. Patient states she then went and advised her what she had done and was subsequently brought to the hospital. She at this time continues to feel depressed, continues to have suicidal ideations, denies any perceptual disturbances or delusions. Collateral information: Patient's , Blaise López, stated that last evening patient threatened to overdose and stated wanting to take her life. He states that she had a bottle of medications and attend to overdose when he had gone to work. Patient then had gone to the balcony of the second floor of the house which she had to pull her off the balcony. He states that later she had told him that she had taken several pills of her medication which she called poison control and subsequently brought to the hospital. He reports that after her last hospital hallucinations she did okay for a while and stopped taking her medications for the past couple of weeks which then worsened her symptoms. Past Family Social History Coded Allergies: No Known Allergies (Verified Allergy, Unknown, 01/19/17) Active Scripts Trazodone (Trazodone) 50 Mg Tab, 50 MG PO HS Y for INSOMNIA for 15 Days, TAB 1 Refill Prov:Junior Peraza MD 10/18/16 Reported Medications Nortriptyline (Nortriptyline) 75 Mg Cap, 75 MG PO HS for Depression Control, # 30 CAP 0 Refills 01/18/17 Alprazolam (Xanax) 1 Mg Tab, 1 MG PO TID Y for ANXIETY, TAB 0 Refills 01/18/17 Discontinued Scripts Lorazepam (Ativan) 1 Mg Tab, 1 MG PO DAILY Y for ANXIETY AND/OR AGITATION, #3 TAB 0 Refills Prov:Lesli Parks MD 11/01/16 Nortriptyline (Nortriptyline) 25 Mg Cap, 100 MG PO HS for Mental Health for 15 Days, CAP 1 Refill Prov:Junior Peraza MD 10/18/16 Lorazepam (Ativan) 1 Mg Tab, 0.5 MG PO Q6H Y for MODERATE TO SEVERE ANXIETY, #7 TAB 1 Refill Prov:Junior Peraza MD 10/18/16 Liothyronine (Cytomel) 25 Mcg Tab, 25 MCG PO DAILY for Mental Health for 15 Days , TAB 1 Refill Prov:Junior Peraza MD 10/18/16 Current Medications Medications (Trade) Dose Ordered Sig/Nga Route Start Time Stop Time Status Last Admin Sodium Chloride 1,000 ml @ 100 mls/hr Q10H IV 01/19/17 05:31 01/19/17 16:41 (NS Flush) 2 ml UNSCH PRN IV FLUSH 01/19/17 05:45 (NS Flush) 2 ml BID IV FLUSH 01/19/17 09:00 01/19/17 08:19 (Narcan Inj) 0.4 mg UNSCH PRN IV PUSH 01/19/17 05:45 Physical Exam Vital Signs Vital Signs Date Time Temp Pulse Resp B/P (MAP) Pulse Ox O2 Delivery O2 Flow Rate FiO2 01/19/17 12:00 98.4 120 16 111/71 (84) 97 01/19/17 06:00 Room Air Lab Results Test 01/18/17 23:00 01/19/17 08:41 Blood Urea Nitrogen 15 MG/DL Creatinine 1.06 MG/DL Random Glucose 86 MG/DL Total Protein 7.6 GM/DL Albumin 3.5 GM/DL Calcium Level 8.5 MG/DL Alkaline Phosphatase 99 U/L Aspartate Amino Transf (AST/SGOT) 26 U/L Alanine Aminotransferase (ALT/SGPT) 60 U/L Total Bilirubin 0.3 MG/DL Direct Bilirubin 0.1 MG/DL Sodium Level 140 MEQ/L Potassium Level 5.0 MEQ/L Chloride Level 108 MEQ/L Carbon Dioxide Level 21.2 MEQ/L Anion Gap 11 MEQ/L Estimat Glomerular Filtration Rate 60 ML/MIN Indirect Bilirubin 0.2 MG/DL Triglycerides Level 223 MG/DL Cholesterol Level 269 MG/DL LDL Cholesterol 171 MG/DL HDL Cholesterol 53.4 MG/DL Cholesterol/HDL Ratio 5.03 RATIO Thyroid Stimulating Hormone 3rd Gen 3.090 uIU/ML Acetaminophen Level LESS THAN 2.0 MCG/ML Ethyl Alcohol Level LESS THAN 3 MG/DL White Blood Count 6.5 TH/MM3 Red Blood Count 4.42 MIL/MM3 Hemoglobin 11.1 GM/DL Hematocrit 34.5 % Mean Corpuscular Volume 78.0 FL Mean Corpuscular Hemoglobin 25.0 PG Mean Corpuscular Hemoglobin Concent 32.1 % Red Cell Distribution Width 16.1 % Platelet Count 248 TH/MM3 Mean Platelet Volume 9.2 FL Neutrophils (%) (Auto) 64.3 % Lymphocytes (%) (Auto) 23.0 % Monocytes (%) (Auto) 10.1 % Eosinophils (%) (Auto) 1.8 % Basophils (%) (Auto) 0.8 % Neutrophils # (Auto) 4.1 TH/MM3 Lymphocytes # (Auto) 1.5 TH/MM3 Monocytes # (Auto) 0.7 TH/MM3 Eosinophils # (Auto) 0.1 TH/MM3 Basophils # (Auto) 0.1 TH/MM3 CBC Comment DIFF FINAL Differential Comment Hemoglobin A1c 5.3 % Mental Status Examination Appearance: Disheveled Consciousness: Alert Orientation: x4 Motor Activity: Normal gait Speech: Unremarkable, Rapid Fund of Knowledge: Adequate Attention and Concentration: Adequate Memory: Unremarkable Mood: Sad, Anxious Affect: Sad Thought Process & Associations: Intact, Logical, Linear Thought Content: Appropriate Hallucination Type: None Delusion Type: None Suicidal Ideation: No Suicidal Plan: No Suicidal Intention: No Homicidal Ideation: No Homicidal Plan: No Homicidal Intention: No Insight: Fair Judgment: Poor Assessment & Plan Problem List: (1) Major depressive disorder, recurrent severe without psychotic features ICD Codes: F33.2 - Major depressive disorder, recurrent severe without psychotic features Assessment & Plan Patient is a 32-year-old woman who carries a diagnosis of major depressive disorder, anxiety disorder, PTSD, with multiple psychiatric admissions, previous suicide attempt, history of self-injurious behavior via cutting who was brought into the ED by her after recent overdose with nortriptyline with attention to end her life. Patient this time continues endorse multiple depressive symptoms, continues to endorse suicidal ideations at this time and will require inpatient psychiatric stabilization. Per discussion with medical team patient will be transferred to the telemetry unit for further observation and management due to recent overdose with TCAs and subsequently transferred to the inpatient psychiatry unit once medically cleared. Recent voluntary admission but will be kept on one-to-one observation while the medical floor for safety. Psychiatry consultation will continue to follow patient while on the medical floor. Consult appreciated. Richie Segura MD Jan 19, 2017 16:55
[2017-01-19] MEDS ORDERED: ONDANSETRON HCL 4 MG/2 ML VIAL IV PUSH PRN (17:30)
--- NOTE | 2017-01-19 17:50 | HHI.HP ---
[facility] Service [place] [facility] Primary Care Physician No Primary Care Physician Admission Diagnosis tricyclic OVerdose Diagnoses: Travel History International Travel<30 Days: No Contact w/Intl Traveler <30 Da: No Traveled to Known Affected Are: No History of Present Illness This is a 31-year-old female with past psychiatric history of major depressive disorder, anxiety disorder, PTSD with previous multiple psychiatric hospitalizations, previous suicide attempts, whose was brought in by after a recent suicide attempt via overdose with tricyclic antidepressants. The patient states that she took 5-6 tablets of nortriptyline. The patient is withdrawn and not giving much of the history, so this is obtained from medical records. Patient denies any chest pain, shortness of breath, palpitations, states she was feeling lightheaded and dizzy upon standing and walking earlier, however this has subsided. The patient denies any dysuria, nausea, vomiting or abdominal pain. Review of Systems As per history of present illness, other systems reviewed and negative Past Family Social History Past Medical History Anxiety, depression, PTSD. Past Surgical History Deviated nasal septum repair. Reported Medications Reported Meds & Active Scripts Active Trazodone (Trazodone HCl) 50 Mg Tab 50 Mg PO HS PRN 15 Days Reported Nortriptyline (Nortriptyline HCl) 75 Mg Cap 75 Mg PO HS Xanax (Alprazolam) 1 Mg Tab 1 Mg PO TID PRN Allergies: Coded Allergies: No Known Allergies (Verified Allergy, Unknown, 01/19/17) Active Ordered Medications Current Medications Medications (Trade) Dose Ordered Sig/Nga Route Start Time Stop Time Status Last Admin Sodium Chloride 1,000 ml @ 100 mls/hr Q10H IV 01/19/17 05:31 01/19/17 16:41 (NS Flush) 2 ml UNSCH PRN IV FLUSH 01/19/17 05:45 (NS Flush) 2 ml BID IV FLUSH 01/19/17 09:00 01/19/17 08:19 (Narcan Inj) 0.4 mg UNSCH PRN IV PUSH 01/19/17 05:45 (Ativan Inj) 1 mg Q2H PRN IV PUSH 01/19/17 17:30 UNV (Zofran Inj) 4 mg Q6HR PRN IV PUSH 01/19/17 17:30 UNV Family History No previous diagnosis of major depression on the family. Patient's ground mother from colon cancer. Social History The patient denies smoking, states drinks alcohol rarely, denies illicit drug use. Physical Exam Vital Signs Vital Signs Date Time Temp Pulse Resp B/P (MAP) Pulse Ox O2 Delivery O2 Flow Rate FiO2 01/19/17 16:49 115 01/19/17 16:48 96.8 80 18 128/40 (69) 96 01/19/17 12:00 98.4 120 16 111/71 (84) 97 01/19/17 11:50 117 01/19/17 08:00 96.9 119 16 119/77 (91) 97 01/19/17 06:30 98.4 113 18 111/75 (87) 97 01/19/17 06:14 01/19/17 06:00 122 16 114/75 (88) 100 Room Air 01/19/17 04:00 110 16 120/79 (93) 100 Room Air 01/19/17 02:00 106 16 126/82 (97) 100 Room Air 01/19/17 00:00 102 16 120/85 (97) 100 Room Air 01/18/17 22:47 113 16 121/85 (97) 100 Room Air 01/18/17 22:31 97.6 120 16 139/82 (101) 100 Room Air Physical Exam GENERAL: This is a well-nourished, well-developed patient, in no apparent distress. SKIN: No rashes, ecchymoses or lesions. Cool and dry. HEAD: Atraumatic. Normocephalic. No temporal or scalp tenderness. EYES: Pupils equal round and reactive. Extraocular motions intact. No scleral icterus. No injection or drainage. ENT: Nose without bleeding, purulent drainage or septal hematoma. Throat without erythema, tonsillar hypertrophy or exudate. Uvula midline. Airway patent. NECK: Trachea midline. No JVD or lymphadenopathy. Supple, nontender, no meningeal signs. CARDIOVASCULAR: Regular rate and rhythm without murmurs, gallops, or rubs. Tachycardic RESPIRATORY: Clear to auscultation. Breath sounds equal bilaterally. No wheezes , rales, or rhonchi. GASTROINTESTINAL: Abdomen soft, non-tender, nondistended. No hepato-splenomegaly , or palpable masses. No guarding. MUSCULOSKELETAL: Extremities without clubbing, cyanosis, or edema. No joint tenderness, effusion, or edema noted. No calf tenderness. Negative Homans sign bilaterally. NEUROLOGICAL: Awake and alert. Cranial nerves II through XII intact. Motor and sensory grossly within normal limits. Five out of 5 muscle strength in all muscle groups. Normal speech. Laboratory Laboratory Tests Test 01/18/17 23:00 01/19/17 08:41 01/19/17 16:30 Blood Urea Nitrogen 15 Creatinine 1.06 Random Glucose 86 Total Protein 7.6 Albumin 3.5 Calcium Level 8.5 Alkaline Phosphatase 99 Aspartate Amino Transf (AST/SGOT) 26 Alanine Aminotransferase (ALT/SGPT) 60 Total Bilirubin 0.3 Direct Bilirubin 0.1 Sodium Level 140 Potassium Level 5.0 Chloride Level 108 Carbon Dioxide Level 21.2 Anion Gap 11 Estimat Glomerular Filtration Rate 60 Indirect Bilirubin 0.2 Triglycerides Level 223 Cholesterol Level 269 LDL Cholesterol 171 HDL Cholesterol 53.4 Cholesterol/HDL Ratio 5.03 Thyroid Stimulating Hormone 3rd Gen 3.090 Acetaminophen Level LESS THAN 2.0 Ethyl Alcohol Level LESS THAN 3 White Blood Count 6.5 Red Blood Count 4.42 Hemoglobin 11.1 Hematocrit 34.5 Mean Corpuscular Volume 78.0 Mean Corpuscular Hemoglobin 25.0 Mean Corpuscular Hemoglobin Concent 32.1 Red Cell Distribution Width 16.1 Platelet Count 248 Mean Platelet Volume 9.2 Neutrophils (%) (Auto) 64.3 Lymphocytes (%) (Auto) 23.0 Monocytes (%) (Auto) 10.1 Eosinophils (%) (Auto) 1.8 Basophils (%) (Auto) 0.8 Neutrophils # (Auto) 4.1 Lymphocytes # (Auto) 1.5 Monocytes # (Auto) 0.7 Eosinophils # (Auto) 0.1 Basophils # (Auto) 0.1 CBC Comment DIFF FINAL Differential Comment Hemoglobin A1c 5.3 Result Diagram: 01/19/17 0841 01/18/17 2300 Caprini VTE Risk Assessment Caprini VTE Risk Assessment: No/Low Risk (score <= 1) Caprini Risk Assessment Model Point Value = 1 Point Value = 2 Point Value = 3 Point Value = 5 Age 41-60 Minor surgery BMI > 25 kg/m2 Swollen legs Varicose veins or History of unexplained or recurrent spontaneous Oral contraceptives or hormone replacement Sepsis (< 1 month) Serious lung disease, including pneumonia (< 1 month) Abnormal pulmonary function Acute myocardial infarction Congestive heart failure (< 1 month) History of inflammatory bowel disease Medical patient at bed rest Age 61-74 Arthroscopic surgery Major open surgery (> 45 min) Laparoscopic surgery (> 45 min) Malignancy Confined to bed (> 72 hours) Immobilizing plaster cast Central venous access Age >= 75 History of VTE Family history of VTE Factor V Leiden Prothrombin [id number] Lupus anticoagulant Anticardiolipin antibodies Elevated serum homocysteine Heparin-induced thrombocytopenia Other congenital or acquired thrombophilia Stroke (< 1 month) Elective arthroplasty Hip, pelvis, or leg fracture Acute spinal cord injury (< 1 month) Prophylaxis Regimen Total Risk Factor Score Risk Level Prophylaxis Regimen 0-1 Low Early ambulation 2 Moderate Order ONE of the following: *Sequential Compression Device (SCD) *Heparin 5000 units SQ BID 3-4 Higher Order ONE of the following medications: *Heparin 5000 units SQ TID *Enoxaparin/Lovenox 40 mg SQ daily (WT < 150 kg, CrCl > 30 mL/min) *Enoxaparin/Lovenox 30 mg SQ daily (WT < 150 kg, CrCl > 10-29 mL/min) *Enoxaparin/Lovenox 30 mg SQ BID (WT < 150 kg, CrCl > 30 mL/min) AND/OR *Sequential Compression Device (SCD) 5 or more Highest Order ONE of the following medications: *Heparin 5000 units SQ TID (Preferred with Epidurals) *Enoxaparin/Lovenox 40 mg SQ daily (WT < 150 kg, CrCl > 30 mL/min) *Enoxaparin/Lovenox 30 mg SQ daily (WT < 150 kg, CrCl > 10-29 mL/min) *Enoxaparin/Lovenox 30 mg SQ BID (WT < 150 kg, CrCl > 30 mL/min) AND *Sequential Compression Device (SCD) Assessment and Plan Problem List: (1) Major depressive disorder, recurrent severe without psychotic features ICD Code: F33.2 - Major depressive disorder, recurrent severe without psychotic features (2) Suicide attempt ICD Code: T14.91XA - Suicide attempt, initial encounter (3) TCA (tricyclic antidepressant) overdose of undetermined intent ICD Code: T43.014A - Poisoning by tricyclic antidepressants, undetermined, initial encounter Assessment and Plan Previous EKGs reviewed by me sinus tachycardia with normal QTC and without ST changes. Admit the patient to the observation unit Monitor on telemetry Patient was administered activated charcoal in the ED Discussed the case with RN will call post control. Will Rx IV Ativan as needed every 2 hours Check EKG Appreciate psychiatry consultation recommendations, patient will need psychiatric inpatient admission after he is cleared medically. Code Status Full code Discussed Condition With Patient, RN, Roby Cohen MD Jan 19, 2017 17:50
[2017-01-19] MEDS: LORazepam 2 MG/ML VIAL IV PUSH PRN (20:05)
--- NOTE | 2017-01-19 21:09 | EKG ---
Date Performed: 01/19/2017 Time Performed: 17:25:08 PTAGE: 31 years EKG: SINUS TACHYCARDIA POSSIBLE RIGHT VENTRICULAR CONDUCTION DELAY ABNORMAL RHYTHM ECG PREVIOUS TRACING : 01/19/2017 05.14 No significant change from previous tracing noted. DOCTOR: Farshad Lane Interpretating Date/Time 01/19/2017 21:08:15
[2017-01-20] VITALS (11 sets, daily range): BP systolic 118–142; BP diastolic 72–91; PULSE 98–129; RESP 16–19; TEMP 98.2–99.3; O2SAT 97–99
[2017-01-20] MEDS: SODIUM CHLOR 0.9% 1000 ML INJ 1,000 ML IV SCH ×3 (01:41→15:42)
[2017-01-20 08:06] LABS: AUTOMATED NEUTROPHIL # 3.5 TH/MM3 (1.8-7.7); BASOPHIL % 0.7 % (0.0-2.0); EOSINOPHIL # 0.1 TH/MM3 (0-0.4); EOSINOPHIL % 1.5 % (0.0-4.0); HEMO FLAGS DIFF FINAL; LYMPH % 32.2 % (9.0-44.0); LYMPHOCYTE # 1.9 TH/MM3 (1.0-4.8); MEAN CELL VOLUME 78.7 FL (80.0-100.0); MEAN CORPUSCULAR HEMOGLOBIN 25.4 PG (27.0-34.0); MEAN CORPUSCULAR HGB CONC 32.3 % (32.0-36.0); MONO % 7.7 % (0.0-8.0); NEUT % 57.9 % (16.0-70.0); PLATELET COUNT 235 TH/MM3 (150-450); RED BLOOD COUNT 4.32 MIL/MM3 (4.00-5.30)
[2017-01-20] MEDS: LORazepam 2 MG/ML VIAL IV PUSH PRN ×2 (08:21→18:42)
[2017-01-20 08:23] LABS: ALKALINE PHOSPHATASE 91 U/L (45-117); ALT (GPT) 44 U/L (10-53); ANION GAP 8 MEQ/L (5-15); AST (GOT) 20 U/L (15-37); BICARBONATE 24.9 MEQ/L (21.0-32.0); BLOOD UREA NITROGEN 11 MG/DL (7-18); CHLORIDE 107 MEQ/L (98-107); GLOMERULAR FILTRATION RATE 73 ML/MIN (>89); POTASSIUM 3.9 MEQ/L (3.5-5.1); SODIUM (NA) 140 MEQ/L (136-145); TOTAL BILIRUBIN ADULT 0.4 MG/DL (0.2-1.0)
[2017-01-20] MEDS: SODIUM CHLORIDE 0.9% FLUSH 10 ML FLUSH IV FLUSH SCH ×2 (08:37→22:39)
[2017-01-20] MEDS ORDERED: clonazePAM 1 MG TAB PO ONE (09:30)
--- NOTE | 2017-01-20 09:32 | HHI.PR ---
Subjective Remarks Follow up for nortriptyline overdose. Patient is currently doing well. No fever , chills. No chest pain, SOB. No suicidal or homicidal ideations. Objective Vitals Vital Signs Date Time Temp Pulse Resp B/P (MAP) Pulse Ox O2 Delivery O2 Flow Rate FiO2 01/20/17 07:33 98.2 112 16 124/78 (93) 97 01/20/17 04:00 98 01/20/17 03:33 98.2 119 19 118/72 (87) 97 01/20/17 00:00 112 01/19/17 23:44 98.9 130 20 124/77 (93) 98 01/19/17 20:00 127 01/19/17 19:22 98.4 125 19 125/82 (96) 99 01/19/17 16:49 115 01/19/17 16:48 96.8 80 18 128/40 (69) 96 01/19/17 12:00 98.4 120 16 111/71 (84) 97 01/19/17 11:50 117 I/O 01/19/17 01/19/17 01/19/17 01/20/17 01/20/17 01/20/17 07:00 15:00 23:00 07:00 15:00 23:00 Intake Total 1264 ml Balance 1264 ml Intake IV Total 1264 ml Result Diagram: 01/20/1762801/20/17628 Objective Remarks GENERAL: Alert, Oriented x 3, NAD. SKIN: Warm and dry. HEAD: Normocephalic. EYES: No scleral icterus. No injection or drainage. NECK: Supple, trachea midline. No JVD or lymphadenopathy. CARDIOVASCULAR: Regular rhythm, tachycardia without murmurs, gallops, or rubs. RESPIRATORY: Breath sounds equal bilaterally. No accessory muscle use. GASTROINTESTINAL: Abdomen soft, non-tender, nondistended. MUSCULOSKELETAL: No cyanosis, or edema. BACK: Nontender without obvious deformity. No CVA tenderness. Procedures None. A/P Problem List: (1) Major depressive disorder, recurrent severe without psychotic features ICD Code: F33.2 - Major depressive disorder, recurrent severe without psychotic features (2) Suicide attempt ICD Code: T14.91XA - Suicide attempt, initial encounter (3) TCA (tricyclic antidepressant) overdose of undetermined intent ICD Code: T43.014A - Poisoning by tricyclic antidepressants, undetermined, initial encounter Assessment and Plan Ms. Perez is a 31 year old female with a history of depression who was admitted to the hospital due to suicidal attempt by taking 5-6 Nortriptyline. - Major depression - Suicide attempt - Overdose on TCA (Nortriptyline) - Patient is currently doing well. No QT prolongation on EKGs. - Anxiety - Sinus tachycardia - Heart rate around 115. - No sign of volume depletion. However, will increase fluid to 200cc/hour for today. - Discussed with psychiatrist. Patient takes Xanax for anxiety. - Will start patient on Clonazepam 1mg now and then 0.5mg Q8hrs Full code. Ambulation. Discharge plan: If tachycardia improves, we will consider discharging patient to psychiatry unit later today or in the AM. Problem Qualifiers (1) TCA (tricyclic antidepressant) overdose of undetermined intent: Qualified Codes: T43.014A - Poisoning by tricyclic antidepressants, undetermined, initial encounter Kiesha Silverman DO Jan 20, 2017 9:32 am
[2017-01-20 11:11] LABS: BETA HCG QUANT LESS THAN 1 MIU/ML (0-5)
[2017-01-20] MEDS ORDERED: ATENOLOL 25 MG TAB PO ONE (14:30)
[2017-01-20] MEDS: clonazePAM 0.5 MG TAB PO SCH ×2 (14:39→22:34)
[2017-01-21] VITALS: PULSE 96
[2017-01-21] MEDS: SODIUM CHLOR 0.9% 1000 ML INJ 1,000 ML IV SCH ×4 (00:50→11:26)
[2017-01-21 02:29] VITALS: BP 122/76; PULSE 108; RESP 18; TEMP 98.2; O2SAT 96
[2017-01-21 04:00] VITALS: PULSE 90
[2017-01-21] MEDS: clonazePAM 0.5 MG TAB PO SCH (06:54)
[2017-01-21 07:25] VITALS: BP 133/89; PULSE 97; RESP 16; TEMP 97.4; O2SAT 98
[2017-01-21 08:02] VITALS: PULSE 92
[2017-01-21] MEDS ORDERED: ATENOLOL 25 MG TAB PO SCH (09:00)
[2017-01-21] MEDS: SODIUM CHLORIDE 0.9% FLUSH 10 ML FLUSH IV FLUSH SCH (09:21)
[2017-01-21] MEDS ORDERED: ATEN25TA PO (10:34)
[2017-01-21] MEDS ORDERED: CLON.5 PO (10:34)
--- NOTE | 2017-01-21 10:36 | HHI.DS ---
Discharge Summary Admission Date Jan 19, 2017 at 5:36 am Discharge Date: Jan 21, 2017 Admitting Diagnosis tricyclic OVerdose (1) Major depressive disorder, recurrent severe without psychotic features ICD Code: F33.2 - Major depressive disorder, recurrent severe without psychotic features (2) Suicide attempt ICD Code: T14.91XA - Suicide attempt, initial encounter (3) TCA (tricyclic antidepressant) overdose of undetermined intent ICD Code: T43.014A - Poisoning by tricyclic antidepressants, undetermined, initial encounter Procedures None. Brief History - From Admission This is a 31-year-old female with past psychiatric history of major depressive disorder, anxiety disorder, PTSD with previous multiple psychiatric hospitalizations, previous suicide attempts, whose was brought in by after a recent suicide attempt via overdose with tricyclic antidepressants. The patient states that she took 5-6 tablets of nortriptyline. The patient is withdrawn and not giving much of the history, so this is obtained from medical records. Patient denies any chest pain, shortness of breath, palpitations, states she was feeling lightheaded and dizzy upon standing and walking earlier, however this has subsided. The patient denies any dysuria, nausea, vomiting or abdominal pain. CBC/BMP: 01/20/17 0629 01/20/17 0629 Significant Findings Laboratory Tests Test 01/18/17 23:00 01/19/17 08:41 01/19/17 16:30 01/20/17 06:29 Creatinine 1.06 MG/DL (0.50-1.00) Alanine Aminotransferase (ALT/SGPT) 60 U/L (10-53) Chloride Level 108 MEQ/L (98-107) Estimat Glomerular Filtration Rate 60 ML/MIN (>89) 73 ML/MIN (>89) Triglycerides Level 223 MG/DL (42-150) Cholesterol Level 269 MG/DL (120-200) LDL Cholesterol 171 MG/DL (0-99) Acetaminophen Level LESS THAN 2.0 MCG/ML Hemoglobin 11.1 GM/DL (11.6-15.3) 11.0 GM/DL (11.6-15.3) Hematocrit 34.5 % (35.0-46.0) 34.0 % (35.0-46.0) Mean Corpuscular Volume 78.0 FL (80.0-100.0) 78.7 FL (80.0-100.0) Mean Corpuscular Hemoglobin 25.0 PG (27.0-34.0) 25.4 PG (27.0-34.0) Monocytes (%) (Auto) 10.1 % (0.0-8.0) Urine Benzodiazepines Screen POS (NEG) Albumin 3.1 GM/DL (3.4-5.0) Calcium Level 8.3 MG/DL (8.5-10.1) PE at Discharge GENERAL: Alert, Oriented x 3, NAD. SKIN: Warm and dry. HEAD: Normocephalic. EYES: No scleral icterus. No injection or drainage. NECK: Supple, trachea midline. No JVD or lymphadenopathy. CARDIOVASCULAR: Regular rhythm, tachycardia without murmurs, gallops, or rubs. RESPIRATORY: Breath sounds equal bilaterally. No accessory muscle use. GASTROINTESTINAL: Abdomen soft, non-tender, nondistended. MUSCULOSKELETAL: No cyanosis, or edema. BACK: Nontender without obvious deformity. No CVA tenderness. Pt update on day of discharge Patient is doing well. No fever, chills. No chest pain, SOB. Hospital Course Ms. Perez is a 31 year old female with a history of depression who was admitted to the hospital due to suicidal attempt by taking 5-6 Nortriptyline. - Major depression - Suicide attempt - Overdose on TCA (Nortriptyline) - Patient is currently doing well. No QT prolongation on EKGs. - Anxiety - Sinus tachycardia - Heart rate around 115. - No sign of volume depletion. However, will increase fluid to 200cc/hour for today. - Discussed with psychiatrist. Patient takes Xanax for anxiety. - Clonazepam 1mg now and then 0.5mg Q8hrs - TSH within normal range. We started patient on Atenolol 25mg Qday. Full code. Ambulation. Pt Condition on Discharge: Good Discharge Disposition: Disc to Psych Care Fac Discharge Time: <= 30 minutes Discharge Instructions DIET: Follow Instructions for: As Tolerated, No Restrictions Activities you can perform: Regular-No Restrictions New Medications: Atenolol (Atenolol) 25 Mg Tab 25 MG PO DAILY for tachycardia, #30 TAB Clonazepam (Klonopin) 0.5 Mg Tab 0.5 MG PO Q8HR for Anxiety, #30 TAB Discontinued Medications: Alprazolam (Xanax) 1 Mg Tab 1 MG PO TID PRN for ANXIETY, TAB 0 Refills Nortriptyline (Nortriptyline) 75 Mg Cap 75 MG PO HS for Depression Control, #30 CAP 0 Refills Trazodone (Trazodone) 50 Mg Tab 50 MG PO HS PRN for INSOMNIA for 15 Days, TAB 1 Refill iKesha Silverman DO Jan 21, 2017 10:36 am
[2017-01-21] MEDS: LORazepam 2 MG/ML VIAL IV PUSH PRN (10:45)
[2017-01-21 11:37] VITALS: BP 119/84; PULSE 97; RESP 16; TEMP 98.2; O2SAT 99
--- NOTE | 2017-01-21 13:53 | HHI.PYPN ---
Subjective Remarks Patient was seen today for psychiatric reevaluation, patient stated to endorse depressive symptoms, anhedonia, worthlessness, but she expresses motivation to get psychiatric treatment and improved. Patient has suicidal thoughts, but denies suicidal intentions or plan. Patient is willing to be admitted in psychiatry voluntarily for stabilization of her depression. Patient is oriented 3, no attention deficit, fluctuation of consciousness. Review of Systems Psychiatric: COMPLAINS OF: Depression, Suicidal Ideation Mental Status Examination Appearance: Disheveled Consciousness: Alert Orientation: x4 Motor Activity: Normal gait Speech: Unremarkable, Rapid Fund of Knowledge: Adequate Attention and Concentration: Adequate Memory: Unremarkable Mood: Sad, Anxious Affect: Sad Thought Process & Associations: Intact, Logical, Linear Thought Content: Appropriate Hallucination Type: None Delusion Type: None Suicidal Ideation: No Suicidal Plan: No Suicidal Intention: No Homicidal Ideation: No Homicidal Plan: No Homicidal Intention: No Insight: Fair Judgment: Poor Results Vitals/IOs Vital Signs Date Time Temp Pulse Resp B/P (MAP) Pulse Ox O2 Delivery O2 Flow Rate FiO2 01/21/17 11:37 98.2 97 16 119/84 (96) 99 01/19/17 06:00 Room Air Assessment & Plan Problem List: (1) Major depressive disorder, recurrent severe without psychotic features ICD Codes: F33.2 - Major depressive disorder, recurrent severe without psychotic features Assessment & Plan: Patient needs psychiatric hospitalization for stabilization. Brief supportive psychotherapy provided. Continue current psychotropic regimen Assessment & Plan Estimated LOS: days Justification for Cont. Inpt. Patient needs psychiatric hospitalization for stabilization Jose Rosenberg MD Jan 21, 2017 13:53
--- NOTE | 2017-01-21 18:33 | EKG ---
Date Performed: 01/20/2017 Time Performed: 17:13:25 PTAGE: 31 years EKG: Sinus rhythm POSSIBLE LEFT ATRIAL ENLARGEMENT POSSIBLE RIGHT VENTRICULAR CONDUCTION DELAY NONSPECFIC ST T-WAVE CH ANGES.. WHEN COMPARED TO PRIOR EKG PATIENT IS NO LONGER TACHYCARDIC. BORDERLINE ECG PREVIOUS TRACING : 01/19/2017 17.25 DOCTOR: Josefa Mccauley Interpretating Date/Time 01/21/2017 18:32:33
== END 2017-01-21 12:46 ==
LOC: NEPC 22:22 → NEDA 01-19 05:36 → NEPFCDU 01-19 06:14
PROVIDERS: ADMIT Hospitalist; ATTEND Hospitalist
DX: T43.014A Poisoning by tricyclic antidepressants, undetermined, initial encounter (principal); F33.2 Major depressive disorder, recurrent severe without psychotic features; T14.91XA Suicide attempt, initial encounter; F43.10 Post-traumatic stress disorder, unspecified; F41.9 Anxiety disorder, unspecified; Z91.5 Personal history of self-harm; Z79.899 Other long term (current) drug therapy
CPT/HCPCS: 80048; 80053; 80061; 80076; 80307; 83036; 84443; 84702; 85025; 93005; 96361; 96374; 96376; 99291; 99292; G0378; J2060; J7030

== ENCOUNTER 2017-01-21 13:17 | Inpatient (IN) | payer SELFPAY ==
[~2017-01-21] VITALS: Ht 160 cm; Wt 81.9 kg
[~2017-01-21 13:17] MED LIST changes: +ATEN25TA PO; +CLON.5 PO; -LIOT25 PO; -LORA-474 PO; -NORT25CA PO; +NORT75CA PO; +XANA1TAB2 PO
[2017-01-21 13:44] VITALS: BP 113/70; PULSE 96; RESP 18; TEMP 98.9; O2SAT 100
[2017-01-21] MEDS: REMOVE OLD PATCH T-DERMAL SCH (14:08)
[2017-01-21] MEDS ORDERED: LORazepam 0.5 MG TAB PO PRN (14:15)
[2017-01-21] MEDS ORDERED: LORazepam 2 MG/ML VIAL IM PRN ×2 (14:15)
[2017-01-21] MEDS: NICOTINE 21 MG/24 HR PATCH T-DERMAL SCH (14:15)
[2017-01-21] MEDS ORDERED: MAGNESIUM HYDROXIDE SUSP 30 ML CUP PO PRN (14:15)
[2017-01-21] MEDS ORDERED: ALUMINUM/MAGNESIUM/SIMETH 30 ML CUP PO PRN (14:15)
[2017-01-21] MEDS: clonazePAM 0.5 MG TAB PO SCH ×2 (15:01→21:25)
[2017-01-21] MEDS: LORazepam 1 MG TAB PO PRN (21:25)
[2017-01-22] MEDS: clonazePAM 0.5 MG TAB PO SCH ×3 (06:24→21:30)
[2017-01-22 06:40] VITALS: BP 105/65; PULSE 97; RESP 18; TEMP 98.4; O2SAT 94
[2017-01-22 08:42] VITALS: BP 124/73
[2017-01-22] MEDS: REMOVE OLD PATCH T-DERMAL SCH (08:43)
[2017-01-22] MEDS: NICOTINE 21 MG/24 HR PATCH T-DERMAL SCH (08:43)
[2017-01-22] MEDS: ATENOLOL 25 MG TAB PO SCH (08:43)
[2017-01-22] MEDS: LORazepam 1 MG TAB PO PRN (09:28)
--- NOTE | 2017-01-22 09:39 | HHI.HP ---
Provisional Diagnosis Admission Date Jan 21, 2017 at 13:17 [place] [facility]. 1. Major depressive disorder, recurrent, severe without psychotic features Rule-out dysthymia, double depression 2. Unspecified anxiety disorder 3. Medication nonadherence [place]. Deferred Certification of Person's Competence To Provide Express and Informed Consent I have personally examined Deborah Perez , a person being served at [facility] on, Jan 22, 2017 09:39. Express and informed consent means consent voluntarily given in writing, by a competent person, after sufficient explanation and disclosure of the subject matter involved to enable the person to make a knowing and willful decision without any element of force, fraud, deceit, duress, or other form of constraint or coercion. This person is 18 years of age or older, is not now known to be incompetent to consent to treatment with a guardian advocate, and does not have a health care surrogate or proxy currently making medical treatment decisions. I have found this person to be one of the following: [x] Competent to provide express and informed consent, as defined above, for voluntary admission to this facility and is competent to provide express and informed consent for treatment. He/she has the consistent capacity to make well reasoned, willful, and knowing decisions concerning his or her medical or mental health treatment. The person fully and consistently understands the purpose of the admission for examination/placement and is fully capable of personally exercising all rights assured [place] Incompetent to provide express and informed consent to voluntary admission, and this is incompetent to provide express and informed consent to treatment. The person must be transferred to involuntary status and a petition for a guardian advocate filed with the Circuit Court. [] Refusing to provide express and informed consent to voluntary admission but is competent to provide express and informed consent for treatment. The person must be discharged or transferred to involuntary status. Form shall be completed within 24 hours of a person's arrival at the receiving facility and filed in the clinical record of each person: 1. Admitted on a voluntary basis 2. Permitted to provide express and informed consent to his/her own treatment 3. Allowed to transfer from involuntary to voluntary status 4. Prior to permitting a person to consent to his or her own treatment after having been previously found incompetent to consent to treatment. History of Present Illness Capacity: Has Capacity Psych Chief Complaint: Depression, suicide attempt HPI Ms. Perez is a 31-year-old female with a history of depression who presents in transfer from the medical floor following an overdose on tricyclic antidepressant medications. Patient was evaluated in consultation on the medical floor by Dr. Segura and later by Dr. Rosenberg. Reviewing the electronic medical record, I note the patient was admitted most recently under my care in September/October of this year. Patient seen and examined with nurse. Chart reviewed. Case discussed with nursing staff. On my examination today, the patient reports that after leaving the hospital last time she stopped taking her medications in early November because she didn't feel like they were helping. However, after she stopped her psychotropic medications her mood worsened. She says that she has been dealing with numerous psychosocial stressors including family issues, not liking where she is living and difficulties in her relationship with her . She says that she impulsively overdosed on 6 Pamelor caps that she had around. She says that this overdose was impulsive although she does endorse preceding suicidal ideation. She is ambivalent about having survived her overdose but denies any active urge to hurt herself on the inpatient psychiatric unit. No homicidal ideation. Mood remains "depressed so bad." She endorses lack of motivation, hopelessness/worthlessness. Anhedonia is present. She has comorbid anxiety, chiefly generalized. No audiovisual hallucinations or delusional material elicited. No hypomanic or manic symptoms. The remainder of the psychiatric ROS is negative. No physical complaints. Past psychiatric history: Patient has a history of depression and anxiety. Depression was reportedly diagnosed in early but she cannot recall having felt well psychiatrically since then despite multiple med adjustments. She reports that she was unable to follow up with Dr. Mills as she had planned and so instead continued with her provider at [facility]. She has not been engaging in psychotherapy with her previous provider Lesli Pepe because of financial issues. She denies any interval psychiatric admissions or suicide attempts. She does endorse having engaged in some nonsuicidal self- injurious behavior since discharge last time, namely cutting. Reviewing patient 's previous medication trials, the patient reports multiple trials of SSRIs, SNRIs, Abilify, Latuda. She feels she did the best on Zoloft/Wellbutrin combination, although she experienced tachyphylaxis. She does not recall the doses but knows she got them from [facility]. I called over to [facility] and they report patient was on Zoloft 50mg daily and Wellbutrin XL 150mg daily. Review of Systems Except as stated in HPI: all other systems reviewed are Neg Past Psych History Psychological trauma history No reported trauma history to me. Violence risk - others (6 mos) Lower imminent risk. No homicidal ideation. No known history of violence. Violence risk - self (6 mos) Elevated risk. Status post tricyclic overdose. Multiple previous suicide attempts in the past. Remains depressed. Substance Abuse History Drugs/Alcohol past 12 months Social alcohol use. Denies any other substance use. Past Family Social History Coded Allergies: No Known Allergies (Verified Allergy, Unknown, 01/19/17) Past Medical History See electronic medical record Active Scripts Clonazepam (Klonopin) 0.5 Mg Tab, 0.5 MG PO Q8HR for Anxiety, #30 TAB Prov:Kiesha Silverman DO 01/21/17 Atenolol (Atenolol) 25 Mg Tab, 25 MG PO DAILY for tachycardia, #30 TAB Prov:Kiesha Silverman DO 01/21/17 Discontinued Reported Medications Nortriptyline (Nortriptyline) 75 Mg Cap, 75 MG PO HS for Depression Control, # 30 CAP 0 Refills 01/18/17 Alprazolam (Xanax) 1 Mg Tab, 1 MG PO TID Y for ANXIETY, TAB 0 Refills 01/18/17 Discontinued Scripts Trazodone (Trazodone) 50 Mg Tab, 50 MG PO HS Y for INSOMNIA for 15 Days, TAB 1 Refill Prov:Junior Peraza MD 10/18/16 Lorazepam (Ativan) 1 Mg Tab, 1 MG PO DAILY Y for ANXIETY AND/OR AGITATION, #3 TAB 0 Refills Prov:Lesli Parks MD 11/01/16 Nortriptyline (Nortriptyline) 25 Mg Cap, 100 MG PO HS for Mental Health for 15 Days, CAP 1 Refill Prov:Junior Peraza MD 10/18/16 Lorazepam (Ativan) 1 Mg Tab, 0.5 MG PO Q6H Y for MODERATE TO SEVERE ANXIETY, #7 TAB 1 Refill Prov:Junior Peraza MD 10/18/16 Liothyronine (Cytomel) 25 Mcg Tab, 25 MCG PO DAILY for Mental Health for 15 Days , TAB 1 Refill Prov:Junior Peraza MD 10/18/16 Current Medications Medications (Trade) Dose Ordered Sig/Nga Route Start Time Stop Time Status Last Admin (Tenormin) 25 mg DAILY PO 01/22/17 09:00 01/22/17 08:43 (KlonoPIN) 0.5 mg Q8HR PO 01/21/17 14:15 01/22/17 06:24 (Ativan) 1 mg Q6H PRN PO 01/21/17 14:15 01/22/17 09:28 (Ativan Inj) 1 mg Q6H PRN IM 01/21/17 14:15 (Tylenol) 650 mg Q4H PRN PO 01/21/17 14:15 (Milk Of Magnesia Liq) 30 ml DAILY PRN PO 01/21/17 14:15 (Mag-Al Plus Susp Liq) 30 ml Q6H PRN PO 01/21/17 14:15 (Habitrol 21 Mg Patch.24 Hr) 1 patch DAILY T-DERMAL 01/21/17 14:15 Miscellaneous Information 1 DAILY T-DERMAL 01/21/17 14:08 Family Psych History no reported family history of psychiatric illness Social History Lives with her although relationship is reportedly somewhat conflicted. No children. College educated. Presently unemployed. Denies any legal issues. Denies any access to guns or firearms. Patient's Strengths (min. 2) In a monitored setting. Verbally fluent. Physical Exam Physical exam completed by hospitalist on the medical floor. On my examination today, the patient appears to be in no acute physical distress. No motor abnormalities noted. Labs and vitals reviewed: Vital Signs Vital Signs Date Time Temp Pulse Resp B/P (MAP) Pulse Ox O2 Delivery O2 Flow Rate FiO2 01/22/17 08:42 124/73 (90) 01/22/17 06:40 98.4 97 18 94 Lab Results Item Value Date Time White Blood Count 6.0 TH/MM3 01/20/17 0629 Hemoglobin 11.0 GM/DL L 01/20/17 06 Platelet Count 235 TH/MM3 01/20/17 06 Sodium Level 140 MEQ/L 01/20/17 0629 Potassium Level 3.9 MEQ/L # 01/20/17 0629 Chloride Level 107 MEQ/L 01/20/17 06 Carbon Dioxide Level 24.9 MEQ/L 01/20/17 06 Blood Urea Nitrogen 11 MG/DL 01/20/17 06 Creatinine 0.90 MG/DL 01/20/17 06 Estimat Glomerular Filtration Rate 73 ML/MIN L 01/20/17 0629 Aspartate Amino Transf (AST/SGOT) 20 U/L 01/20/17 0629 Alanine Aminotransferase (ALT/SGPT) 44 U/L 01/20/17 06 Alkaline Phosphatase 91 U/L 01/20/17 06 Thyroid Stimulating Hormone 3rd Gen 1.550 uIU/ML 01/20/17 0629 Human Chorionic Gonadotropin, Quant LESS THAN 1 MIU/ML 01/20/17 06 Urine Benzodiazepines Screen POS H 01/19/17 1630 Ethyl Alcohol Level LESS THAN 3 MG/DL 01/18/17 2300 Labs reviewed. Microcytic anemia chronic. Most recent EKG sinus rhythm with QTc 405ms. Mental Status Examination Appearance: Appropriate Consciousness: Alert Orientation: x4 Motor Activity: Normal gait Speech: Unremarkable Language: Adequate Fund of Knowledge: Adequate Attention and Concentration: Adequate Memory: Unremarkable (grossly intact on clinical exam) Mood: Other (depressed) Affect: Other (restricted and dysphoric) Thought Process & Associations: Logical, Linear Thought Content: Appropriate Hallucination Type: None Delusion Type: None Suicidal Ideation: Yes Suicidal Plan: No Suicidal Intention: No Homicidal Ideation: No Homicidal Plan: No Homicidal Intention: No Insight: Fair Judgment: Impulsive Assessment & Plan Problem List: (1) Major depressive disorder, recurrent severe without psychotic features ICD Codes: F33.2 - Major depressive disorder, recurrent severe without psychotic features (2) Anxiety ICD Codes: F41.9 - Anxiety disorder, unspecified Status: Acute (3) Noncompliance with medication regimen ICD Codes: Z91.14 - Patient's other noncompliance with medication regimen Assessment & Plan 31-year-old female with psychiatric history as detailed above who presents in transfer from the medical floor following an overdose on tricyclics. Patient remains quite depressed with some vague suicidal ideation although she denies any urge to hurt herself on the inpatient unit. Multiple previous medication trials noted, and the patient reports that she did the best on Zoloft/Wellbutrin combination. Dose of these agents was apparently quite low and so reported tachyphylaxis might be overcome by simply titrating the dose of either or both. We have an extensive discussion regarding the risks and benefits of various treatment options for her psychiatric symptoms, including pharmacotherapeutic treatments, other somatic treatments (such as ECT ) and psychotherapeutic treatments like residential placement and settle on a return to the Zoloft/Wellbutrin combination. Patient requires psychiatric hospitalization at this time for safety, observation and stabilization. Admit inpatient. Voluntary status. Resume Zoloft 50 mg daily and Wellbutrin 150mg daily (SR on formulary in our pharmacy) with plans to titrate to effect. Continue scheduled Klonopin and atenolol. Atarax as needed for anxiety. Consulted the hospitalist. Vitals every shift. Counselor to see. Disposition planning. Estimated length of stay: 1-2 weeks. Discharge Planning Pending stabilization. Lack of payer source unfortunately will likely limit aftercare options. I will discuss case with counselor. Request HC Surrog/Guard Advoc?: No Junior Peraza MD Jan 22, 2017 09:39
[2017-01-22 10:21] LABS: CHLORIDE 106 MEQ/L (98-107); POTASSIUM 3.7 MEQ/L (3.5-5.1); SODIUM (NA) 140 MEQ/L (136-145)
[2017-01-22 11:07] LABS: ANION GAP 11 MEQ/L (5-15); BICARBONATE 22.7 MEQ/L (21.0-32.0); BLOOD UREA NITROGEN 9 MG/DL (7-18); GLOMERULAR FILTRATION RATE 69 ML/MIN (>89); HDL CHOLESTEROL 50.6 MG/DL (40.0-60.0); LDL CHOLESTEROL 176 MG/DL (0-99)
[2017-01-22] MEDS: SERTRALINE HCL 50 MG TAB PO SCH (12:11)
[2017-01-22] MEDS: buPROPion HCL 150 MG SUSTAINED RELEASE TAB PO SCH (12:11)
[2017-01-22 14:14] LABS: TRANSFERRIN IRON PROFILE 326 MG/DL (200-360)
[2017-01-22 14:17] LABS: FERRITIN 8 NG/ML (8-252)
[2017-01-22] MEDS: FERROUS SULFATE 325 MG (65 MG ELEMENTAL IRON) TAB PO SCH (17:01)
--- NOTE | 2017-01-22 17:01 | PD.CONS ---
HPI [facility] Consult Requested By Psychiatry service Reason for Consult Medical follow-up transferred from medicine service status post OD Primary Care Physician Unknown Diagnoses: History of Present Illness Patient is a very pleasant 31 years old female with history of depression/ anxiety disorder who was admitted under medical service 2 days ago status post with the antipsychotic antidepressants. Patient apparently stated some suicidal ideations. While in the Medical Center patient was also noted to have sinus tachycardia. No complaints of chest pains or shortness of breath. Patient was started on atenolol 25 mg daily. Patient is transferred here to psychiatry service for further management. Patient on exam is interactive. Still feels sad but denies any suicidal thoughts. Denies any chest pain or shortness of breath. She is looking forward to going home soon. Review of Systems Constitutional: DENIES: Diaphoretic episodes, Fatigue, Fever, Weight gain, Weight loss, Chills, Dizziness, Change in appetite, Night Sweats Endocrine: DENIES: Abnorml menstrual pattern, Heat/cold intolerance, Polydipsia , Polyuria, Polyphagia Eyes: DENIES: Blurred vision, Diplopia, Eye inflammation, Eye pain, Vision loss , Photosensitivity, Double Vision Ears, nose, mouth, throat: DENIES: Tinnitus, Hearing loss, Vertigo, Nasal discharge, Oral lesions, Throat pain, Hoarseness, Ear Pain, Running Nose, Epistaxis, Sinus Pain, Toothache, Odynophagia Respiratory: DENIES: Apneas, Cough, Snoring, Wheezing, Hemoptysis, Sputum production, Shortness of breath Cardiovascular: DENIES: Chest pain, Palpitations, Syncope, Dyspnea on Exertion , PND, Lower Extremity Edema, Orthopnea, Claudication Gastrointestinal: DENIES: Abdominal pain, Black stools, Bloody stools, Constipation, Diarrhea, Nausea, Vomiting, Difficulty Swallowing, Anorexia Genitourinary: DENIES: Abnormal vaginal bleeding, Dysmenorrhea, Dyspareunia, Sexual dysfunction, Urinary frequency, Urinary incontinence, Urgency, Hematuria , Dysuria, Nocturia, Vaginal discharge Musculoskeletal: DENIES: Joint pain, Muscle aches, Stiffness, Joint Swelling, Back pain, Neck pain Integumentary: DENIES: Abnormal pigmentation, Pruritus, Rash, Nail changes, Breast masses, Breast skin changes, Nipple discharge Hematologic/lymphatic: DENIES: Bruising, Lymphadenopathy Immunologic/allergic: DENIES: Eczema, Urticaria Neurologic: DENIES: Abnormal gait, Headache, Localized weakness, Paresthesias, Seizures, Speech Problems, Tremor, Poor Balance Psychiatric: COMPLAINS OF: Anxiety, Depression Past Family Social History Allergies: Coded Allergies: No Known Allergies (Verified Allergy, Unknown, 01/19/17) Past Medical History Depression Anxiety disorder Past Surgical History No major surgeries Reported Medications Currently in-house patient is on Atarax Ferrous sulfate 325 twice a day Atenolol 25 mg daily Klonopin 0.5 every 8 Active Ordered Medications See EMR Family History Positive family history of hypertension mother Social History Denies smoking Very rare alcohol use Denies any substance abuse Physical Exam Vital Signs Vital Signs Date Time Temp Pulse Resp B/P (MAP) Pulse Ox O2 Delivery O2 Flow Rate FiO2 01/22/17 08:42 124/73 (90) 01/22/17 06:40 98.4 97 18 105/65 (78) 94 Physical Exam GENERAL: This is a well-nourished, well-developed patient, in no apparent distress. Blunt affect SKIN: No rashes, ecchymoses or lesions. Cool and dry. HEAD: Atraumatic. Normocephalic. No temporal or scalp tenderness. EYES: Pupils equal round and reactive. Extraocular motions intact. No scleral icterus. No injection or drainage. ENT: Nose without bleeding, purulent drainage or septal hematoma. Throat without erythema, tonsillar hypertrophy or exudate. Uvula midline. Airway patent. NECK: Trachea midline. No JVD or lymphadenopathy. Supple, nontender, no meningeal signs. No thyromegaly CARDIOVASCULAR: Regular rate-heart rate around 92/m and rhythm without murmurs, gallops, or rubs. RESPIRATORY: Clear to auscultation. Breath sounds equal bilaterally. No wheezes , rales, or rhonchi. GASTROINTESTINAL: Abdomen soft, non-tender, nondistended. No hepato-splenomegaly , or palpable masses. No guarding. MUSCULOSKELETAL: Extremities without clubbing, cyanosis, or edema. No joint tenderness, effusion, or edema noted. No calf tenderness. Negative Homans sign bilaterally. NEUROLOGICAL: Awake and alert. Cranial nerves II through XII intact. Motor and sensory grossly within normal limits. Five out of 5 muscle strength in all muscle groups. Normal speech. Laboratory Laboratory Tests Test 01/22/17 07:22 Blood Urea Nitrogen 9 Creatinine 0.94 Random Glucose 92 Calcium Level 8.5 Sodium Level 140 Potassium Level 3.7 Chloride Level 106 Carbon Dioxide Level 22.7 Anion Gap 11 Estimat Glomerular Filtration Rate 69 Iron Level 25 Total Iron Binding Capacity 456 Percent Iron Saturation 5.5 Ferritin 8 Triglycerides Level 153 Cholesterol Level 257 LDL Cholesterol 176 HDL Cholesterol 50.6 Cholesterol/HDL Ratio 5.07 Result Diagram: 01/22/17 0722 Assessment and Plan Assessment and Plan 31-year-old female Depression status post OD on tetracyclic antidepressant Management per psychiatry Sinus tachycardia Anxiety part probably contributing factor for now we will continue on atenolol 25 mg daily. Reviewed labs from medical admission thyroid function tests within normal. Eventually try to wean off beta ran if anxiety better controlled. Hypercholesterolemia. High cholesterol high triglyceride change diet to low cholesterol diet Iron deficiency anemia. Low ferritin stores high TIBC patient mentions cycle regular LMP 2 weeks ago denies any menorrhagia. Denies any melena or hematochezia Continue iron sulfate twice a day. Thank you for this consult we'll follow patient in-house with you Will need the PCP on discharge for follow-up Rose Summers MD Jan 22, 2017 17:00
[2017-01-22 18:09] LABS: HEMOGLOBIN A1b 1.8 %; HEMOGLOBIN Ao 86.3 %; HEMOGLOBIN LA1C 1.8 %; HEMOGLOBIN P3 3.3 %
[2017-01-22 18:21] VITALS: BP 128/78; PULSE 86; RESP 18; TEMP 97.9; O2SAT 100
[2017-01-22] MEDS: ACETAMINOPHEN 325 MG TAB PO PRN (20:44)
[2017-01-22] MEDS: REMOVE OLD NICODERM (NICOTINE) PATCH T-DERMAL SCH (21:00)
[2017-01-23 06:36] VITALS: BP 108/56; PULSE 97; RESP 16; TEMP 98.6; O2SAT 97
[2017-01-23] MEDS: clonazePAM 0.5 MG TAB PO SCH ×3 (06:39→21:27)
[2017-01-23] MEDS: SERTRALINE HCL 50 MG TAB PO SCH (08:24)
[2017-01-23] MEDS: ATENOLOL 25 MG TAB PO SCH (08:24)
[2017-01-23] MEDS: buPROPion HCL 150 MG SUSTAINED RELEASE TAB PO SCH (08:24)
[2017-01-23] MEDS: REMOVE OLD PATCH T-DERMAL SCH (08:25)
[2017-01-23] MEDS: NICOTINE 21 MG/24 HR PATCH T-DERMAL SCH (08:25)
[2017-01-23] MEDS: FERROUS SULFATE 325 MG (65 MG ELEMENTAL IRON) TAB PO SCH ×2 (11:39→16:32)
--- NOTE | 2017-01-23 13:49 | HHI.PR ---
Subjective Remarks no complains- still feels "sad and hopeless" Objective Vitals Vital Signs Date Time Temp Pulse Resp B/P (MAP) Pulse Ox O2 Delivery O2 Flow Rate FiO2 01/23/17 06:36 98.6 97 16 108/56 (73) 97 01/22/17 18:21 97.9 86 18 128/78 (95) 100 Result Diagram: 01/22/17 0722 Objective Remarks alert, no acute distress anicteric lungs clear regular rhythm HR- 88/min abdomen soft extremities no edema gait steady A/P Assessment and Plan 31-year-old female Depression status post OD on tetracyclic antidepressant Management per psychiatry Sinus tachycardia- improved Anxiety part probably contributing factor for now we will decrease atenolol from 25 mg to 12.5 mg daily Reviewed labs from medical admission thyroid function tests within normal. Eventually try to wean off beta ran if anxiety better controlled. Hypercholesterolemia. High cholesterol high triglyceride change diet to low cholesterol diet OP ff up- diet counselling Iron deficiency anemia. Low ferritin stores high TIBC patient mentions cycle regular LMP 2 weeks ago denies any menorrhagia. Denies any melena or hematochezia Continue iron sulfate twice a day pcp FF UP. Will need A PCP on discharge for follow-up- cm CONSULT Rose Summers MD Jan 23, 2017 13:49
[2017-01-23] MEDS ORDERED: PILL SPLITTER OTHER PRN (14:00)
--- NOTE | 2017-01-23 15:38 | HHI.PYPN ---
Subjective Chief Complaint: Depression, suicide attempt Remarks Patient seen and examined with nurse. Chart reviewed. Case discussed with nursing staff. On my examination today, patient continues to complain of feeling sad, depressed, hopeless. She denies any active suicidal ideation. Sleep remains poor. Denies side effects from medications. No physical complaints. She would like additional medication for sleep and would like to pursue aggressive titration of antidepressant medications in hopes of lifting her mood. She has tried trazodone in the past for sleep but didn't find it particularly helpful. I did offer to involve patient's or other sources of support in patient's care and offered family meeting should the patient desire it. She will think about it and let me know. Review of Systems Except as stated in HPI: all other systems reviewed are Neg Mental Status Examination Appearance: Appropriate Consciousness: Alert Orientation: x4 Motor Activity: Normal gait, Other (no motor abnormalities noted) Speech: Unremarkable Language: Adequate Fund of Knowledge: Adequate Attention and Concentration: Adequate Memory: Unremarkable Mood: Sad Affect: Other (restricted and consistent with stated mood) Thought Process & Associations: Logical, Linear Thought Content: Appropriate Hallucination Type: None Delusion Type: None Suicidal Ideation: No Suicidal Plan: No Suicidal Intention: No Homicidal Ideation: No Homicidal Plan: No Homicidal Intention: No Insight: Fair Judgment: Impulsive Results Labs Labs reviewed. Vitals/IOs Vital Signs Date Time Temp Pulse Resp B/P (MAP) Pulse Ox O2 Delivery O2 Flow Rate FiO2 01/23/17 06:36 98.6 97 16 108/56 (73) 97 Assessment & Plan Problem List: (1) Major depressive disorder, recurrent severe without psychotic features ICD Codes: F33.2 - Major depressive disorder, recurrent severe without psychotic features (2) Anxiety ICD Codes: F41.9 - Anxiety disorder, unspecified Status: Acute (3) Noncompliance with medication regimen ICD Codes: Z91.14 - Patient's other noncompliance with medication regimen Assessment & Plan Titrate Zoloft to 100 mg daily. I have discussed the risks and benefits of antidepressant titration with the patient. Continue Wellbutrin as ordered. Ambien as needed for sleep. Hospitalist input noted and appreciated. Continue other medications and care as ordered. Justification for Cont. Inpt. Monitoring for impairments in safety. Medication changes. High risk for decompensation in less restrictive environment. Discharge Planning Pending psychiatric stabilization. Request HC Surrog/Guard Advoc?: No Junior Peraza MD Jan 23, 2017 15:38
[2017-01-23 16:57] VITALS: BP 132/81; PULSE 85; RESP 17; TEMP 98.1; O2SAT 96
[2017-01-23] MEDS: ACETAMINOPHEN 325 MG TAB PO PRN (19:58)
[2017-01-23] MEDS: REMOVE OLD NICODERM (NICOTINE) PATCH T-DERMAL SCH (21:00)
[2017-01-23] MEDS: ZOLPIDEM TARTRATE 5 MG TAB PO PRN (22:21)
[2017-01-24 05:50] VITALS: BP 116/61; PULSE 88; RESP 17; TEMP 98.3; O2SAT 97
[2017-01-24] MEDS: clonazePAM 0.5 MG TAB PO SCH ×2 (06:28→21:04)
[2017-01-24] MEDS: buPROPion HCL 150 MG SUSTAINED RELEASE TAB PO SCH (08:42)
[2017-01-24] MEDS: SERTRALINE HCL 50 MG TAB PO SCH (08:42)
[2017-01-24] MEDS: NICOTINE 21 MG/24 HR PATCH T-DERMAL SCH (08:44)
[2017-01-24] MEDS: REMOVE OLD PATCH T-DERMAL SCH (08:45)
[2017-01-24] MEDS ORDERED: ATENOLOL 25 MG TAB PO SCH (09:00)
--- NOTE | 2017-01-24 11:12 | HHI.PYPN ---
Subjective Chief Complaint: Depression, suicide attempt Remarks Patient seen and examined with nurse. Chart reviewed. Case discussed with nursing staff. Case discussed in treatment team. No significant behavioral issues overnight. On my exam, mood is slowly improving. Increased affective reactivity. Continues to complain of some poor motivation and resolving hopelessness/worthlessness. No suicidal ideation. Sleep remains somewhat subjectively poor. Denies side effects from medications. No physical complaints. Patient would like to try to titrate Wellbutrin over weekend. She is not sure the Klonopin is adding much, and we discussed trying to taper this agent, and she is agreeable to this. With patient's permission, placed call to Edi López at number listed in EMR. Left generic requesting a call back. Review of Systems Except as stated in HPI: all other systems reviewed are Neg Mental Status Examination Appearance: Appropriate Consciousness: Alert Orientation: x4 Motor Activity: Normal gait, Other (no abnormal motor movements noted) Speech: Unremarkable Language: Adequate Fund of Knowledge: Adequate Attention and Concentration: Adequate Memory: Unremarkable Mood: Sad (improving) Affect: Other (more affective reactivity) Thought Process & Associations: Logical, Goal directed, Linear Thought Content: Appropriate Hallucination Type: None Delusion Type: None Suicidal Ideation: No Suicidal Plan: No Suicidal Intention: No Homicidal Ideation: No Homicidal Plan: No Homicidal Intention: No Insight: Fair Judgment: Impulsive Results Labs Labs reviewed Vitals/IOs Vital Signs Date Time Temp Pulse Resp B/P (MAP) Pulse Ox O2 Delivery O2 Flow Rate FiO2 01/24/17 05:50 98.3 88 17 116/61 (56) 97 Assessment & Plan Problem List: (1) Major depressive disorder, recurrent severe without psychotic features ICD Codes: F33.2 - Major depressive disorder, recurrent severe without psychotic features (2) Anxiety ICD Codes: F41.9 - Anxiety disorder, unspecified Status: Acute (3) Noncompliance with medication regimen ICD Codes: Z91.14 - Patient's other noncompliance with medication regimen Assessment & Plan Titrate Wellbutrin over weekend to 150 mg twice daily to target residual depressive symptoms. Continue Zoloft 100 mg daily as ordered. I will taper patient's Klonopin back to 0.5 mg twice daily. Continue to monitor on the inpatient unit. Continue other medications and care as ordered. Justification for Cont. Inpt. Med changes. Monitoring for impairments in safety. Discharge Planning Possible discharge some time next week. Request HC Surrog/Guard Advoc?: No Junior Peraza MD Jan 24, 2017 11:12
[2017-01-24] MEDS: FERROUS SULFATE 325 MG (65 MG ELEMENTAL IRON) TAB PO SCH ×2 (12:00→16:17)
[2017-01-24] MEDS: hydrOXYzine HCL 50 MG TAB PO PRN (13:12)
--- NOTE | 2017-01-24 13:39 | HHI.PR ---
Subjective Remarks smiling denies any pain up and ambulating Objective Vitals Vital Signs Date Time Temp Pulse Resp B/P (MAP) Pulse Ox O2 Delivery O2 Flow Rate FiO2 01/24/17 05:50 98.3 88 17 116/61 (79) 97 01/23/17 16:57 98.1 85 17 132/81 (98) 96 Result Diagram: 01/22/17 0722 Objective Remarks alert, no acute distress anicteric lungs clear regular rhythm HR- 90/min abdomen soft extremities no edema gait steady A/P Assessment and Plan 31-year-old female Depression status post OD on tetracyclic antidepressant Management per psychiatry Sinus tachycardia- improved Anxiety probably contributing factor decrease atenolol from 25 mg to 12.5 mg daily. will JAXSON and hanh Reviewed labs from medical admission thyroid function tests within normal. Eventually try to wean off beta ran if anxiety better controlled. Hypercholesterolemia. High cholesterol high triglyceride change diet to low cholesterol diet OP ff up- diet counselling Iron deficiency anemia. Low ferritin stores high TIBC patient mentions cycle regular LMP 2 weeks ago denies any menorrhagia. Denies any melena or hematochezia Continue iron sulfate twice a day pcp FF UP. Will need A PCP on discharge for follow-up- Rose Summesr MD Jan 24, 2017 13:39
[2017-01-24 17:57] VITALS: BP 130/80; PULSE 90; RESP 17; TEMP 98.3; O2SAT 90
[2017-01-24] MEDS: REMOVE OLD NICODERM (NICOTINE) PATCH T-DERMAL SCH (21:00)
[2017-01-24] MEDS: ZOLPIDEM TARTRATE 5 MG TAB PO PRN (22:12)
[2017-01-25 05:45] VITALS: BP 108/64; PULSE 90; RESP 18; TEMP 98.3; O2SAT 97
[2017-01-25] MEDS: REMOVE OLD PATCH T-DERMAL SCH (09:00)
[2017-01-25] MEDS: NICOTINE 21 MG/24 HR PATCH T-DERMAL SCH (09:00)
[2017-01-25] MEDS: clonazePAM 0.5 MG TAB PO SCH ×2 (10:18→21:00)
[2017-01-25] MEDS: buPROPion HCL 150 MG SUSTAINED RELEASE TAB PO SCH (10:18)
[2017-01-25] MEDS: SERTRALINE HCL 50 MG TAB PO SCH (10:19)
--- NOTE | 2017-01-25 11:44 | HHI.PYPN ---
Subjective Chief Complaint: Depression, suicide attempt Remarks Patient was seen and case discussed with nursing. Patient says her mood today is improving and describes it as a 5 out of 6. Affect is anxious. Continues to visit daily with her . Pleasant during the interview. Compliant with her medications. Eating and sleeping well. Denies suicidal ideation intent or plan. Mental Status Examination Appearance: Appropriate Consciousness: Alert Orientation: x4 Motor Activity: Normal gait, Other (no abnormal motor movements noted) Speech: Unremarkable Language: Adequate Fund of Knowledge: Adequate Attention and Concentration: Adequate Memory: Unremarkable Mood: Sad (improving) Affect: Other (more affective reactivity) Thought Process & Associations: Logical, Goal directed, Linear Thought Content: Appropriate Hallucination Type: None Delusion Type: None Suicidal Ideation: No Suicidal Plan: No Suicidal Intention: No Homicidal Ideation: No Homicidal Plan: No Homicidal Intention: No Insight: Fair Judgment: Impulsive Results Vitals/IOs Vital Signs Date Time Temp Pulse Resp B/P (MAP) Pulse Ox O2 Delivery O2 Flow Rate FiO2 01/25/17 05:45 98.3 90 18 108/64 (79) 97 Assessment & Plan Problem List: (1) Major depressive disorder, recurrent severe without psychotic features ICD Codes: F33.2 - Major depressive disorder, recurrent severe without psychotic features (2) Anxiety ICD Codes: F41.9 - Anxiety disorder, unspecified Status: Acute (3) Noncompliance with medication regimen ICD Codes: Z91.14 - Patient's other noncompliance with medication regimen Assessment & Plan Continue current treatment plan Justification for Cont. Inpt. Patient will decompensate in a less restrictive setting Request HC Surrog/Guard Advoc?: No Chris Castro DO Jan 25, 2017 11:44
[2017-01-25] MEDS: FERROUS SULFATE 325 MG (65 MG ELEMENTAL IRON) TAB PO SCH ×2 (12:01→16:45)
[2017-01-25] MEDS: ACETAMINOPHEN 325 MG TAB PO PRN ×2 (12:28→16:04)
--- NOTE | 2017-01-25 17:19 | HHI.PR ---
Subjective Remarks pleasant and cooperative on exam0- heart rate full minute- 84/min still feels "like nobody is listening to me" but states she got a "good supportive " Objective Vitals Vital Signs Date Time Temp Pulse Resp B/P (MAP) Pulse Ox O2 Delivery O2 Flow Rate FiO2 01/25/17 13:30 14 01/25/17 05:45 98.3 90 18 108/64 (79) 97 01/24/17 17:57 98.3 90 17 130/80 (97) 90 Result Diagram: 01/22/17 0722 Objective Remarks lungs clear regular rhythm HR- 82/min abdomen soft extremities no edema gait steady A/P Assessment and Plan 31-year-old female Depression status post OD on tetracyclic antidepressant Management per psychiatry Sinus tachycardia- improved- likely related to underlying psychiatric -off Atenolol. HR stable Anxiety probably contributing factor decrease atenolol from 25 mg to 12.5 mg daily. will JAXSON and hanh Reviewed labs from medical admission thyroid function tests within normal. Hypercholesterolemia. High cholesterol high triglyceride change diet to low cholesterol diet OP ff up- diet counselling Iron deficiency anemia. Low ferritin stores high TIBC. possibly nutritional in related patient mentions cycle regular LMP 2 weeks ago denies any menorrhagia. - Denies any melena or hematochezia Continue iron sulfate twice a day OP ff up with PCP, [facility] signs off will need Iron sulfate 325 mg po bid scripts on DC OP ff up with a PCP Rose Summers MD Jan 25, 2017 17:19
[2017-01-25 18:20] VITALS: BP 121/79; PULSE 96; RESP 18; TEMP 98.1; O2SAT 99
[2017-01-25] MEDS: REMOVE OLD NICODERM (NICOTINE) PATCH T-DERMAL SCH (21:00)
[2017-01-25] MEDS: ZOLPIDEM TARTRATE 5 MG TAB PO PRN (22:16)
[2017-01-26 06:26] VITALS: BP 121/65; PULSE 84; RESP 16; TEMP 97.9; O2SAT 97
[2017-01-26] MEDS: REMOVE OLD PATCH T-DERMAL SCH (09:00)
[2017-01-26] MEDS: NICOTINE 21 MG/24 HR PATCH T-DERMAL SCH (09:00)
[2017-01-26] MEDS: buPROPion HCL 150 MG SUSTAINED RELEASE TAB PO SCH ×2 (10:37→14:33)
[2017-01-26] MEDS: SERTRALINE HCL 50 MG TAB PO SCH (10:37)
[2017-01-26] MEDS: clonazePAM 0.5 MG TAB PO SCH ×2 (10:37→22:01)
[2017-01-26] MEDS: ACETAMINOPHEN 325 MG TAB PO PRN ×2 (11:02→14:34)
[2017-01-26] MEDS: FERROUS SULFATE 325 MG (65 MG ELEMENTAL IRON) TAB PO SCH ×2 (12:00→17:03)
--- NOTE | 2017-01-26 12:55 | HHI.PYPN ---
Subjective Chief Complaint: Depression, suicide attempt Remarks Patient was seen and case discussed with nursing. Patient continues to improve. She is bright and cheerful and laughing throughout the interview. She went outside today. His social with others. Slept 7 hours but tells me that she's not sleeping well. Denies suicidal or homicidal ideation intent or plan. is coming to visit today Mental Status Examination Appearance: Appropriate Consciousness: Alert Orientation: x4 Motor Activity: Normal gait, Other (no abnormal motor movements noted) Speech: Unremarkable Language: Adequate Fund of Knowledge: Adequate Attention and Concentration: Adequate Memory: Unremarkable Mood: Other ("better") Affect: Appropriate Thought Process & Associations: Logical, Goal directed, Linear Thought Content: Appropriate Hallucination Type: None Delusion Type: None Suicidal Ideation: No Suicidal Plan: No Suicidal Intention: No Homicidal Ideation: No Homicidal Plan: No Homicidal Intention: No Insight: Fair Judgment: Impulsive Results Vitals/IOs Vital Signs Date Time Temp Pulse Resp B/P (MAP) Pulse Ox O2 Delivery O2 Flow Rate FiO2 01/26/17 12:35 16 01/26/17 06:26 97.9 84 121/65 (83) 97 Assessment & Plan Problem List: (1) Major depressive disorder, recurrent severe without psychotic features ICD Codes: F33.2 - Major depressive disorder, recurrent severe without psychotic features (2) Anxiety ICD Codes: F41.9 - Anxiety disorder, unspecified Status: Acute (3) Noncompliance with medication regimen ICD Codes: Z91.14 - Patient's other noncompliance with medication regimen Assessment & Plan Continue current treatment plan Justification for Cont. Inpt. Patient will decompensate in a less restrictive setting Request HC Surrog/Guard Advoc?: No Chris Castro DO Jan 26, 2017 12:55
[2017-01-26] MEDS: REMOVE OLD NICODERM (NICOTINE) PATCH T-DERMAL SCH (21:00)
[2017-01-26 21:55] VITALS: BP 132/77; PULSE 104; RESP 18; TEMP 97.5
[2017-01-26] MEDS: hydrOXYzine HCL 50 MG TAB PO PRN (22:01)
[2017-01-26] MEDS: ZOLPIDEM TARTRATE 5 MG TAB PO PRN (23:28)
[2017-01-27 05:41] VITALS: BP 113/55; PULSE 92; RESP 18; TEMP 97.6
[2017-01-27] MEDS: SERTRALINE HCL 50 MG TAB PO SCH (08:55)
[2017-01-27] MEDS: clonazePAM 0.5 MG TAB PO SCH ×2 (08:56→21:41)
[2017-01-27] MEDS: buPROPion HCL 150 MG SUSTAINED RELEASE TAB PO SCH ×2 (08:57→15:18)
[2017-01-27] MEDS: REMOVE OLD PATCH T-DERMAL SCH (09:00)
[2017-01-27] MEDS: NICOTINE 21 MG/24 HR PATCH T-DERMAL SCH (09:00)
[2017-01-27] MEDS: ACETAMINOPHEN 325 MG TAB PO PRN ×3 (09:20→17:30)
--- NOTE | 2017-01-27 11:21 | HHI.PYPN ---
Subjective Chief Complaint: Depression, suicide attempt Remarks Patient seen and examined with nurse. Chart reviewed. Case discussed with nursing staff. On my examination today, affect somewhat more reactive although patient remains depressed. She denies any active suicidal ideation. Moderate degree of chiefly generalized anxiety. Some complaints of palpitations yesterday but no associated chest pain, shortness of breath or other symptoms of symptomatic tachycardia. The patient does seem anxious regarding intermittent tachycardia. Hospitalist recommendations regarding tachycardia reviewed. No other physical complaints. Denies side effects from medications. Patient is interested in adding sedating antipsychotic, such as Seroquel, to her existing regimen and we discuss risks, benefits and alternatives to this approach. Review of Systems Except as stated in HPI: all other systems reviewed are Neg Mental Status Examination Appearance: Appropriate Consciousness: Alert Orientation: x4 Motor Activity: Normal gait, Other (no motoric abnormalities appreciated) Speech: Unremarkable Language: Adequate Fund of Knowledge: Adequate Attention and Concentration: Adequate Memory: Unremarkable Mood: Other (remains somewhat depressed) Affect: Appropriate (fairly full and reactive) Thought Process & Associations: Logical, Goal directed, Linear Thought Content: Appropriate Hallucination Type: None Delusion Type: None Suicidal Ideation: No Suicidal Plan: No Suicidal Intention: No Homicidal Ideation: No Homicidal Plan: No Homicidal Intention: No Insight: Fair Judgment: Impulsive Results Labs Labs reviewed. Vitals/IOs Vital Signs Date Time Temp Pulse Resp B/P (MAP) Pulse Ox O2 Delivery O2 Flow Rate FiO2 01/27/17 05:41 97.6 92 18 113/55 (74) 01/26/17 06:26 97 Assessment & Plan Problem List: (1) Major depressive disorder, recurrent severe without psychotic features ICD Codes: F33.2 - Major depressive disorder, recurrent severe without psychotic features (2) Anxiety ICD Codes: F41.9 - Anxiety disorder, unspecified Status: Acute (3) Noncompliance with medication regimen ICD Codes: Z91.14 - Patient's other noncompliance with medication regimen Assessment & Plan Continue Zoloft and Wellbutrin as ordered. Check EKG for QTc. Could consider starting Seroquel 50mg qHS if QTc wnl. Continue to monitor on inpatient unit. Continue other medications and care as ordered. Justification for Cont. Inpt. Med changes planned. Risk for decompensation in less restrictive environment. Discharge Planning Pending stabilization. Request HC Surrog/Guard Advoc?: No Junior Peraza MD Jan 27, 2017 11:21
[2017-01-27] MEDS: FERROUS SULFATE 325 MG (65 MG ELEMENTAL IRON) TAB PO SCH ×2 (11:49→17:15)
[2017-01-27 17:12] VITALS: BP 132/74; PULSE 95; RESP 18; TEMP 97.4; O2SAT 96
[2017-01-27] MEDS ORDERED: SODIUM CHLORIDE 0.65% NASAL SPRAY 45 ML BTL EACH NARE PRN (17:45)
[2017-01-27] MEDS: hydrOXYzine HCL 50 MG TAB PO PRN (19:43)
[2017-01-27] MEDS: QUEtiapine FUMARATE 25 MG TAB PO SCH (21:00)
[2017-01-27] MEDS: REMOVE OLD NICODERM (NICOTINE) PATCH T-DERMAL SCH (21:00)
[2017-01-27] MEDS: ZOLPIDEM TARTRATE 5 MG TAB PO PRN (21:41)
[2017-01-28 06:07] VITALS: BP 114/62; PULSE 90; RESP 17; TEMP 98.3; O2SAT 97
[2017-01-28] MEDS: SERTRALINE HCL 50 MG TAB PO SCH (08:47)
[2017-01-28] MEDS: ACETAMINOPHEN 325 MG TAB PO PRN (08:49)
[2017-01-28] MEDS: clonazePAM 0.5 MG TAB PO SCH ×2 (08:49→21:31)
[2017-01-28] MEDS: buPROPion HCL 150 MG SUSTAINED RELEASE TAB PO SCH ×2 (08:54→14:24)
[2017-01-28] MEDS: NICOTINE 21 MG/24 HR PATCH T-DERMAL SCH (08:54)
[2017-01-28] MEDS: REMOVE OLD PATCH T-DERMAL SCH (08:56)
--- NOTE | 2017-01-28 09:08 | PD.TTN ---
Patient Problems 1. Discharge planning 2. Medication compliance 3. Knowledge deficit 4. Lack of coping skills Progress Toward Goals Provider Present: Dr. Rui Peraza Provider Input: Patient has been started on medication regiment and has been compliant with medications. Patient denies side effects. patient currently denies suicidal ideations but does endorse feelings of depression. Nurse(s) Input: Patient is observed to be out in the dayroom and has been compliant with medications. patient is more social but does continue to states she has low energy and mood. Patient is attending to all ADLs and is eating all meals. Psychiatric Counselors Present: Sof[facility] Gust[facility] Psych Therapist Input: Patient states that she is feeling a little bit better with medication and notes that due to her previous noncompliance, it had made her feel worse. patient states that she aware on continuing on her medications and is able to identify appropriate goals for discharge. Patient states that she will continue to attend outpatient therapy and support group. Group Spec/RT/OT/MENON Present: Chanel Ortiz, [facility] Group Spec/RT/OT/MENON Input: Patient does attend group and provides insight upon admission and is appropriate. Sofi Gustafson [facility] Jan 28, 2017 09:08
--- NOTE | 2017-01-28 11:33 | HHI.PYPN ---
Subjective Chief Complaint: Depression, suicide attempt Remarks Patient seen and examined with nurse. Chart reviewed. Case discussed in treatment team. Per nursing staff, no behavioral issues overnight. Occupational therapist notes that the patient is somewhat more social in groups. On my examination today, the patient reports that after some initial improvement, her mood seems to have plateaued in a moderately depressed state. She denies any active suicidal ideation. She would like to try to titrate her Zoloft. The patient did not receive her Seroquel last night because she wanted to review the EKG findings with me. I have discussed these with her, and she wishes to proceed with Seroquel trial this evening. Denies side effects from medications. Complains of menstrual cramps but otherwise no physical complaints. She says that she normally takes ibuprofen 800 mg up to 3 times a day for this problem. With patient's permission, I did once again try to reach out the patient's to discuss the case. I left a generic voicemail requesting a call back. Review of Systems Except as stated in HPI: all other systems reviewed are Neg Mental Status Examination Appearance: Appropriate Consciousness: Alert Orientation: x4 Motor Activity: Normal gait, Other (no abnormal motor movements noted) Speech: Unremarkable Language: Adequate Fund of Knowledge: Adequate Attention and Concentration: Adequate Memory: Unremarkable Mood: Other (remains depressed) Affect: Appropriate (remains fairly full and reactive) Thought Process & Associations: Logical, Goal directed, Linear Thought Content: Appropriate Hallucination Type: None Delusion Type: None Suicidal Ideation: No Suicidal Plan: No Suicidal Intention: No Homicidal Ideation: No Homicidal Plan: No Homicidal Intention: No Insight: Fair Judgment: Impulsive Results Labs Labs reviewed. No new labs. EKG is read as normal sinus rhythm with a QTC of 409 ms. Vitals/IOs Vital Signs Date Time Temp Pulse Resp B/P (MAP) Pulse Ox O2 Delivery O2 Flow Rate FiO2 01/28/17 06:07 98.3 90 17 114/62 (79) 97 Intake and Output 01/28/17 01/28/17 01/29/17 08:00 16:00 00:00 Intake Total 0 ml Balance 0 ml Assessment & Plan Problem List: (1) Major depressive disorder, recurrent severe without psychotic features ICD Codes: F33.2 - Major depressive disorder, recurrent severe without psychotic features (2) Anxiety ICD Codes: F41.9 - Anxiety disorder, unspecified Status: Acute (3) Noncompliance with medication regimen ICD Codes: Z91.14 - Patient's other noncompliance with medication regimen Assessment & Plan Initiate Seroquel 50 mg at bedtime. I have discussed the risks and benefits of further antidepressant titration with the patient. We will titrate Zoloft to 150 mg daily and continue Wellbutrin as ordered. Ibuprofen 800 mg every 8 hours as needed for menstrual pain. Check a BMP in the morning. Continue to monitor on the inpatient unit. Continue other medications and care as ordered. Justification for Cont. Inpt. Med changes. Risk for decompensation in less restrictive environment. Discharge Planning Pending stabilization. I anticipate discharge by the end of this week or beginning of next week. Request HC Surrog/Guard Advoc?: No Junior Peraza MD Jan 28, 2017 11:33
[2017-01-28] MEDS: hydrOXYzine HCL 50 MG TAB PO PRN (11:44)
[2017-01-28] MEDS: FERROUS SULFATE 325 MG (65 MG ELEMENTAL IRON) TAB PO SCH ×2 (11:44→16:34)
--- NOTE | 2017-01-28 14:22 | EKG ---
Date Performed: 01/27/2017 Time Performed: 16:33:24 PTAGE: 31 years EKG: Sinus rhythm NORMAL ECG PREVIOUS TRACING : 01/20/2017 17.13 Compared to prior tracing no significant change DOCTOR: Mina Chowdhury Interpretating Date/Time 01/28/2017 14:16:42
[2017-01-28] MEDS: IBUPROFEN 800 MG TAB PO PRN (16:48)
[2017-01-28 18:00] VITALS: BP 100/57; PULSE 102; RESP 16; TEMP 98.5
[2017-01-28] MEDS: REMOVE OLD NICODERM (NICOTINE) PATCH T-DERMAL SCH (21:00)
[2017-01-28] MEDS: QUEtiapine FUMARATE 25 MG TAB PO SCH (21:31)
[2017-01-29 05:47] VITALS: BP 114/64; PULSE 83; RESP 17; TEMP 98.2
[2017-01-29] MEDS: SERTRALINE HCL 50 MG TAB PO SCH (08:29)
[2017-01-29] MEDS: clonazePAM 0.5 MG TAB PO SCH ×2 (08:29→20:32)
[2017-01-29] MEDS: buPROPion HCL 150 MG SUSTAINED RELEASE TAB PO SCH ×2 (08:34→14:31)
[2017-01-29] MEDS: REMOVE OLD PATCH T-DERMAL SCH (08:48)
[2017-01-29] MEDS: NICOTINE 21 MG/24 HR PATCH T-DERMAL SCH (08:48)
--- NOTE | 2017-01-29 10:33 | HHI.PYPN ---
Subjective Chief Complaint: Depression, suicide attempt Remarks Patient seen and examined with nurse. Chart reviewed. Case discussed with nursing staff. On my examination today, patient initially smiling and notes that she is social by nature and often puts on a jovial affect in this context. However, she notes that she still feels fairly depressed. Although she does not report current SI, she is worried that she would become suicidal again if discharged at this point. She would like to continue to titrate medications aggressively to improve her mood. I provide psychoeducation regarding the lag time for response with antidepressants and also note that many psychotropics show a J-shaped response curve, and maximal doses may not be more efficacious than middling doses. Denies side effects from medications. No physical complaints. We also discuss importance of psychotherapy after discharge, particularly once she gets insurance to support this endeavor. Review of Systems Except as stated in HPI: all other systems reviewed are Neg Mental Status Examination Appearance: Appropriate Consciousness: Alert Orientation: x4 Motor Activity: Normal gait, Other (no abnormal motor movements noted) Speech: Unremarkable Language: Adequate Fund of Knowledge: Adequate Attention and Concentration: Adequate Memory: Unremarkable Mood: Other (Depressed) Affect: Appropriate Thought Process & Associations: Intact, Logical, Linear Thought Content: Appropriate Hallucination Type: None Delusion Type: None Suicidal Ideation: No (but see above) Suicidal Plan: No Suicidal Intention: No Homicidal Ideation: No Homicidal Plan: No Homicidal Intention: No Insight: Fair Judgment: Impulsive Results Labs Labs reviewed. BMP reveals mildly decreased GFR, otherwise unremarkable. Vitals/IOs Vital Signs Date Time Temp Pulse Resp B/P (MAP) Pulse Ox O2 Delivery O2 Flow Rate FiO2 01/29/17 05:47 98.2 83 17 114/64 (81) 01/28/17 06:07 97 Intake and Output 01/29/17 01/29/17 01/30/17 08:00 16:00 00:00 Intake Total 240 ml Balance 240 ml Assessment & Plan Problem List: (1) Major depressive disorder, recurrent severe without psychotic features ICD Codes: F33.2 - Major depressive disorder, recurrent severe without psychotic features (2) Anxiety ICD Codes: F41.9 - Anxiety disorder, unspecified Status: Acute (3) Noncompliance with medication regimen ICD Codes: Z91.14 - Patient's other noncompliance with medication regimen Assessment & Plan Zoloft 150mg daily, first dose today. Continue Wellbutrin, Seroquel and Klonopin as ordered. Continue to monitor on the inpatient unit. Continue other medications and care as ordered. Justification for Cont. Inpt. Monitoring for impairments in safety. Risk for decompensation in less restrictive environment. Discharge Planning Pending psychiatric stabilization. Request HC Surrog/Guard Advoc?: No Junior Peraza MD Jan 29, 2017 10:33
[2017-01-29] MEDS: FERROUS SULFATE 325 MG (65 MG ELEMENTAL IRON) TAB PO SCH ×2 (10:34→16:06)
[2017-01-29] MEDS: IBUPROFEN 800 MG TAB PO PRN (10:34)
[2017-01-29 11:43] LABS: BICARBONATE 28.2 MEQ/L (21.0-32.0); POTASSIUM 4.4 MEQ/L (3.5-5.1)
[2017-01-29 17:03] VITALS: BP 138/77; PULSE 98; RESP 18; TEMP 97.9; O2SAT 99
[2017-01-29] MEDS: QUEtiapine FUMARATE 25 MG TAB PO SCH (20:32)
[2017-01-29] MEDS: hydrOXYzine HCL 50 MG TAB PO PRN (20:32)
[2017-01-29] MEDS: REMOVE OLD NICODERM (NICOTINE) PATCH T-DERMAL SCH (21:00)
[2017-01-30 05:57] VITALS: BP 116/68; PULSE 90; RESP 16; TEMP 97.8; O2SAT 98
[2017-01-30] MEDS: clonazePAM 0.5 MG TAB PO SCH ×2 (08:46→21:07)
[2017-01-30] MEDS: buPROPion HCL 150 MG SUSTAINED RELEASE TAB PO SCH ×2 (08:46→15:14)
[2017-01-30] MEDS: SERTRALINE HCL 50 MG TAB PO SCH (08:46)
[2017-01-30] MEDS: hydrOXYzine HCL 50 MG TAB PO PRN (09:16)
--- NOTE | 2017-01-30 11:44 | HHI.PYPN ---
Subjective Chief Complaint: Depression, suicide attempt Remarks Patient seen and examined with nurse. Chart reviewed. Case discussed with nursing staff. On my exam, patient feels her depression is slowly lifting. She feels more clear-thinking and engaged. She denies SI. She notes that she is looking forward to Thanksgiving with family and is hopeful that she will be discharged by then. 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 Denies side effects from medications. We discuss titrating Seroquel and tapering Klonopin to reduce total med burden, and she is agreeable to this. No physical complaints. Review of Systems Except as stated in HPI: all other systems reviewed are Neg Mental Status Examination Appearance: Appropriate Consciousness: Alert Orientation: x4 Motor Activity: Normal gait, Other (no motor abnormalities appreciated) Speech: Unremarkable Language: Adequate Fund of Knowledge: Adequate Attention and Concentration: Adequate Memory: Unremarkable Mood: Other (depressed but slowly improving) Affect: Appropriate (fairly full and reactive) Thought Process & Associations: Intact, Logical, Goal directed, Linear Thought Content: Appropriate, Other (future oriented) Hallucination Type: None Delusion Type: None Suicidal Ideation: No Suicidal Plan: No Suicidal Intention: No Homicidal Ideation: No Homicidal Plan: No Homicidal Intention: No Insight: Fair Judgment: Impulsive Results Labs Labs reviewed. Vitals/IOs Vital Signs Date Time Temp Pulse Resp B/P (MAP) Pulse Ox O2 Delivery O2 Flow Rate FiO2 01/30/17 05:57 97.8 90 16 116/68 (84) 98 Assessment & Plan Problem List: (1) Major depressive disorder, recurrent severe without psychotic features ICD Codes: F33.2 - Major depressive disorder, recurrent severe without psychotic features (2) Anxiety ICD Codes: F41.9 - Anxiety disorder, unspecified Status: Acute (3) Noncompliance with medication regimen ICD Codes: Z91.14 - Patient's other noncompliance with medication regimen Assessment & Plan Titrate Seroquel to 100mg qHS. Taper Klonopin to 0.25mg BID with plans to discontinue. Continue Zoloft and Wellbutrin as ordered. Check a BMP for GFR in morning. Continue other medications and care as ordered. Justification for Cont. Inpt. Med changes. Risk for decompensation in less restrictive environment. Discharge Planning Possible discharge beginning of next week Request HC Surrog/Guard Advoc?: No Junior Preaza MD Jan 30, 2017 11:44
[2017-01-30] MEDS: FERROUS SULFATE 325 MG (65 MG ELEMENTAL IRON) TAB PO SCH ×2 (12:39→17:08)
[2017-01-30] MEDS: ACETAMINOPHEN 325 MG TAB PO PRN (15:17)
[2017-01-30] MEDS: IBUPROFEN 800 MG TAB PO PRN (15:21)
[2017-01-30 16:40] VITALS: BP 118/60; PULSE 115; RESP 16; TEMP 97.6; O2SAT 97
[2017-01-30] MEDS: REMOVE OLD NICODERM (NICOTINE) PATCH T-DERMAL SCH (21:00)
[2017-01-30] MEDS: QUEtiapine FUMARATE 100 MG TAB PO SCH (21:07)
[2017-01-31 05:30] VITALS: BP 116/67; PULSE 94; RESP 16; TEMP 97.6; O2SAT 97
[2017-01-31 08:10] LABS: BICARBONATE 27.3 MEQ/L (21.0-32.0); POTASSIUM 3.9 MEQ/L (3.5-5.1)
[2017-01-31] MEDS: buPROPion HCL 150 MG SUSTAINED RELEASE TAB PO SCH ×2 (08:45→15:00)
[2017-01-31] MEDS: hydrOXYzine HCL 50 MG TAB PO PRN ×2 (08:45→15:55)
[2017-01-31] MEDS: SERTRALINE HCL 50 MG TAB PO SCH (08:45)
[2017-01-31] MEDS: clonazePAM 0.5 MG TAB PO SCH ×2 (08:46→21:10)
--- NOTE | 2017-01-31 10:32 | HHI.PYPN ---
Subjective Chief Complaint: Depression, suicide attempt Remarks Patient seen and examined with nurse. Chart reviewed. Case discussed in treatment team. Patient returned to the unit from activity due to complaints of dizziness. She appears a little flushed but otherwise denies any associated symptoms. I have asked RN to check orthostatics and have instituted fall precautions. I will additionally check CBC as patient has been on her menses and was already somewhat anemic. Recent EKG was unremarkable. Mood remains about the same. No SI/HI. No side effects from medications. No other physical complaints. I return to re-eval patient later, in the afternoon, and she reports that she feels improved with no further dizziness. Review of Systems Except as stated in HPI: all other systems reviewed are Neg Mental Status Examination Appearance: Appropriate Consciousness: Alert Orientation: x4 Motor Activity: Normal gait, Other (no motor abnormalities appreciated) Speech: Unremarkable Language: Adequate Fund of Knowledge: Adequate Attention and Concentration: Adequate Memory: Unremarkable Mood: Other (depressed but improving) Affect: Appropriate Thought Process & Associations: Intact, Logical, Goal directed, Linear Thought Content: Appropriate Hallucination Type: None Delusion Type: None Suicidal Ideation: No (No SI voiced) Homicidal Ideation: No (No HI voiced) Insight: Fair Judgment: Impulsive Results Labs Test 01/31/17 06:32 Blood Urea Nitrogen 17 MG/DL Creatinine 1.04 MG/DL Random Glucose 93 MG/DL Calcium Level 9.3 MG/DL Sodium Level 139 MEQ/L Potassium Level 3.9 MEQ/L Chloride Level 105 MEQ/L Carbon Dioxide Level 27.3 MEQ/L Anion Gap 7 MEQ/L Estimat Glomerular Filtration Rate 61 ML/MIN Labs reviewed. GFR fairly stable. Vitals/IOs Vital Signs Date Time Temp Pulse Resp B/P (MAP) Pulse Ox O2 Delivery O2 Flow Rate FiO2 01/31/17 05:30 97.6 94 16 116/67 (62) 97 Assessment & Plan Problem List: (1) Major depressive disorder, recurrent severe without psychotic features ICD Codes: F33.2 - Major depressive disorder, recurrent severe without psychotic features (2) Anxiety ICD Codes: F41.9 - Anxiety disorder, unspecified Status: Acute (3) Noncompliance with medication regimen ICD Codes: Z91.14 - Patient's other noncompliance with medication regimen Assessment & Plan In light of episode of dizziness, I will make no med change today. Consult to the hospitalist for medical evaluation. Follow up CBC and orthostatics. Continue to monitor on inpatient unit. Continue other meds and care as ordered. Justification for Cont. Inpt. Monitoring for impairments in safety, none noted. Discharge Planning Anticipate discharge beginning of next week. Request HC Surrog/Guard Advoc?: No Junior Peraza MD Jan 31, 2017 10:32
[2017-01-31] MEDS: FERROUS SULFATE 325 MG (65 MG ELEMENTAL IRON) TAB PO SCH ×2 (12:00→16:00)
--- NOTE | 2017-01-31 14:08 | PD.TTN ---
Patient Problems 1. Discharge planning 2. Medication compliance 3. Knowledge deficit 4. Lack of coping skills Progress Toward Goals Provider Present: Dr. Rui Peraza Provider Input: Patient has been started on medication regiment and has been compliant with medications. Patient denies side effects. patient currently denies suicidal ideations but does endorse feelings of depression. 01/31/17 Per Doctor patient is slowly improving and meds are still adjusted. Aniticipated discharge is Friday or Friday of next week. Nurse(s) Input: Patient is observed to be out in the dayroom and has been compliant with medications. patient is more social but does continue to states she has low energy and mood. Patient is attending to all ADLs and is eating all meals. 01/31/17 patient is compliant. Psychiatric Counselors Present: Sofi Gustafson [facility] Psych Therapist Input: Patient states that she is feeling a little bit better with medication and notes that due to her previous noncompliance, it had made her feel worse. patient states that she aware on continuing on her medications and is able to identify appropriate goals for discharge. Patient states that she will continue to attend outpatient therapy and support group. 01/31/17 patient feels she is improving. She is established with a psychiatrist and feels comfortable with a discharge next week home to her . Group Spec/RT/OT/MENON Present: DION Singleton Group Spec/RT/OT/MENON Input: Patient does attend group and provides insight upon admission and is appropriate. 01/31/17 Patient actively participates. She is social with peers. Felicia Mckeon MANUAL MACHINIST Jan 31, 2017 14:08
[2017-01-31 15:46] LABS: AUTOMATED NEUTROPHIL # 4.3 TH/MM3 (1.8-7.7); BASOPHIL # 0.1 TH/MM3 (0-0.2); BASOPHIL % 1.1 % (0.0-2.0); EOSINOPHIL # 0.1 TH/MM3 (0-0.4); EOSINOPHIL % 1.4 % (0.0-4.0); HEMATOCRIT 33.6 % (35.0-46.0); HEMO FLAGS DIFF FINAL; LYMPH % 23.8 % (9.0-44.0); LYMPHOCYTE # 1.5 TH/MM3 (1.0-4.8); MEAN CELL VOLUME 79.4 FL (80.0-100.0); MEAN CORPUSCULAR HEMOGLOBIN 26.9 PG (27.0-34.0); MEAN CORPUSCULAR HGB CONC 33.9 % (32.0-36.0); MONO % 6.6 % (0.0-8.0); NEUT % 67.1 % (16.0-70.0); PLATELET COUNT 239 TH/MM3 (150-450); RED BLOOD COUNT 4.23 MIL/MM3 (4.00-5.30); RED CELL DISTRIBUTION WIDTH 17.3 % (11.6-17.2); WHITE BLOOD COUNT 6.5 TH/MM3 (4.0-11.0)
[2017-01-31 15:55] VITALS: BP 116/65; PULSE 92
[2017-01-31 15:56] VITALS: BP 115/67; PULSE 109
[2017-01-31 15:57] VITALS: BP 113/68; PULSE 113
[2017-01-31 17:23] VITALS: BP 131/82; PULSE 95; RESP 18; TEMP 99.2; O2SAT 99
[2017-01-31] MEDS ORDERED: MECLIZINE HCL 25 MG TAB PO PRN (18:45)
[2017-01-31] MEDS: REMOVE OLD NICODERM (NICOTINE) PATCH T-DERMAL SCH (21:00)
[2017-01-31] MEDS: QUEtiapine FUMARATE 100 MG TAB PO SCH (21:09)
--- NOTE | 2017-01-31 23:08 | RADRPT ---
EXAM DATE/TIME: 01/31/2017 21:49 [facility] COMPARISON: No previous studies available for comparison. INDICATIONS : Syncope. MEDICAL HISTORY : Tachycardia. Depression. Anxiety. Previous suicide attempt. SURGICAL HISTORY : Deviated septum repair. ENCOUNTER: Initial ACUITY: 1 day PAIN SCORE: 0/10 LOCATION: Bilateral neck PEAK SYSTOLIC VELOCITIES (cm/sec): ICA/CCA RATIO: Right: 0.7 Left: 0.8 ICA: Right: 86 Left: 82 CCA: Right: 118 Left: 102 ECA: Right: 67 Left: 93 VERTEBRAL: Right: 64 antegrade Left: 69 antegrade Elevated flow velocities and ICA/CCA ratios have been found to correlate with increased degrees of vessel stenosis, calculated as percentage of diameter relative to a normal segment of distal ICA/CCA FINDINGS: RIGHT CAROTID: No significant stenosis is visualized. The waveforms are within normal limits. LEFT CAROTID: No significant stenosis is visualized. The waveforms are within normal limits. VERTEBRAL ARTERIES: Antegrade flow is seen in both vertebral arteries. MISCELLANEOUS: None. CONCLUSION: Normal examination. Gen Cruz MD on January 31, 2017 at 23:07 Board Certified Radiologist. This report was verified electronically.
[2017-02-01 05:50] VITALS: BP 100/71; PULSE 96; RESP 17; TEMP 97.6; O2SAT 96
[2017-02-01] MEDS: SERTRALINE HCL 50 MG TAB PO SCH (08:29)
[2017-02-01] MEDS: clonazePAM 0.5 MG TAB PO SCH ×2 (08:31→21:37)
[2017-02-01] MEDS: buPROPion HCL 150 MG SUSTAINED RELEASE TAB PO SCH ×2 (09:22→15:23)
[2017-02-01 12:00] VITALS: BP_SYST 123; BP_SYST 133; BP_DIAS 73; BP_DIAS 77; PULSE 101; PULSE 122
[2017-02-01] MEDS: FERROUS SULFATE 325 MG (65 MG ELEMENTAL IRON) TAB PO SCH ×2 (12:14→17:44)
[2017-02-01] MEDS: hydrOXYzine HCL 50 MG TAB PO PRN ×2 (14:05→21:37)
--- NOTE | 2017-02-01 15:51 | HHI.PR ---
Subjective Remarks reconsulted for dizziness :atient states episode of dizziness lasting x 10 minutes earlier today. Denies cp, sob, cough, nausea, vomiting or diarrhea. Objective Vitals Vital Signs Date Time Temp Pulse Resp B/P (MAP) Pulse Ox O2 Delivery O2 Flow Rate FiO2 02/01/17 12:00 122 133/73 (93) 02/01/17 12:00 123/77 (92) 02/01/17 12:00 101 02/01/17 05:50 97.6 96 17 100/71 (81) 96 01/31/17 17:23 99.2 95 18 131/82 (98) 99 01/31/17 15:57 113 113/68 (83) 01/31/17 15:56 109 115/67 (83) 01/31/17 15:55 92 116/65 (82) Result Diagram: 01/31/17 1532 01/31/17 0632 Imaging Last Impressions Carotid Artery Ultrasound 01/31/17 0000 Signed Impressions: Service Date/Time: Tuesday, January 31, 2017 21:49 - CONCLUSION: Normal examination. Gen Cruz MD Objective Remarks AAOx3 clear lungs S1S2 RRR abdomen soft, nt, nd no edema in extremities Medications and IVs Current Medications Medications (Trade) Dose Ordered Sig/Nga Route Start Time Stop Time Status Last Admin (Tylenol) 650 mg Q4H PRN PO 01/21/17 14:15 02/01/17 16:03 (Milk Of Magnesia Liq) 30 ml DAILY PRN PO 01/21/17 14:15 (Mag-Al Plus Susp Liq) 30 ml Q6H PRN PO 01/21/17 14:15 (Atarax) 50 mg Q6H PRN PO 01/22/17 11:00 02/01/17 21:37 (Ferrous Sulfate) 325 mg BID@12,17 PO 01/22/17 17:00 02/01/17 17:44 Miscellaneous Information 1 HS T-DERMAL 01/22/17 21:00 (Pill Splitter) 1 ea UNSCH PRN OTHER 01/23/17 14:00 (Ambien) 5 mg HS PRN PO 01/23/17 15:45 02/02/17 00:50 (Wellbutrin Sr) 150 mg Taper BID@0900,1500 PO 01/25/17 09:00 02/05/17 08:59 02/02/17 08:58 ([place]) 2 spray Q4H PRN EACH NARE 01/27/17 17:45 (Motrin) 800 mg Q8H PRN PO 01/28/17 14:45 01/30/17 15:21 (Zoloft) 150 mg DAILY PO 01/29/17 09:00 02/02/17 08:57 (KlonoPIN) 0.25 mg BID PO 01/30/17 21:00 02/02/17 09:00 (SEROquel) 100 mg HS PO 01/30/17 21:00 02/01/17 21:37 (Antivert) 25 mg Q8H PRN PO 01/31/17 18:45 02/01/17 15:23 A/P Assessment and Plan Depression status post OD on tetracyclic antidepressant Management per psychiatry Sinus tachycardia- improved- likely related to underlying psychiatric - Patient still tachycardic. EKG reviewed by me with normal sinus rythm. - Tsh normal. - check 2 D echocardiogram. Hypercholesterolemia. High cholesterol high triglyceride Continue low cholesterol diet LDL very elevated, will start on low dose statin. Iron deficiency anemia. Low ferritin stores high TIBC. possibly nutritional in related patient mentions cycle regular LMP 2 weeks ago denies any menorrhagia. - Denies any melena or hematochezia Continue iron sulfate twice a day Dizziness unclear etiology, carotids us negative, EKG normal sinus rythm. orthostatics negative, check head CT and 2 D echo. Roby Neal MD Feb 01, 2017 15:51
[2017-02-01] MEDS: ACETAMINOPHEN 325 MG TAB PO PRN (16:03)
--- NOTE | 2017-02-01 16:47 | HHI.PYPN ---
Subjective Chief Complaint: Depression, suicide attempt Remarks Pt seen and discussed with staff. She remains depressed with very flat affect. Seroquel was increased two days ago and she is tolerating it without side effects. Pt is hopeless and states she has very little hayden that medication regimen will improve depression because "nothing has worked for many years". She denies SI/HI. Mental Status Examination Appearance: Appropriate Consciousness: Alert Orientation: x4 Motor Activity: Normal gait, Other (no motor abnormalities appreciated) Speech: Unremarkable Language: Adequate Fund of Knowledge: Adequate Attention and Concentration: Adequate Memory: Unremarkable Mood: Other (depressed but improving) Affect: Sad Thought Process & Associations: Intact, Logical, Goal directed, Linear Thought Content: Appropriate Hallucination Type: None Delusion Type: None Suicidal Ideation: No Suicidal Plan: No Suicidal Intention: No Homicidal Ideation: No Homicidal Plan: No Homicidal Intention: No Insight: Fair Judgment: Impulsive Results Vitals/IOs Vital Signs Date Time Temp Pulse Resp B/P (MAP) Pulse Ox O2 Delivery O2 Flow Rate FiO2 02/01/17 12:00 122 133/73 (93) 02/01/17 05:50 97.6 17 96 Assessment & Plan Problem List: (1) Major depressive disorder, recurrent severe without psychotic features ICD Codes: F33.2 - Major depressive disorder, recurrent severe without psychotic features (2) Anxiety ICD Codes: F41.9 - Anxiety disorder, unspecified Status: Acute (3) Noncompliance with medication regimen ICD Codes: Z91.14 - Patient's other noncompliance with medication regimen Assessment & Plan Continue current tx plan. Estimated LOS: days Justification for Cont. Inpt. risk of decompensation Request HC Surrog/Guard Advoc?: Marianela Hernandez MD Feb 01, 2017 16:47
[2017-02-01 17:09] VITALS: BP 113/80; PULSE 101; RESP 16; TEMP 98.1; O2SAT 97
[2017-02-01] MEDS: REMOVE OLD NICODERM (NICOTINE) PATCH T-DERMAL SCH (21:00)
[2017-02-01] MEDS: QUEtiapine FUMARATE 100 MG TAB PO SCH (21:37)
[2017-02-02] MEDS: ZOLPIDEM TARTRATE 5 MG TAB PO PRN ×2 (00:50→20:58)
[2017-02-02 05:31] VITALS: BP 115/58; PULSE 95; RESP 16; TEMP 98.7; O2SAT 95
[2017-02-02] MEDS: SERTRALINE HCL 50 MG TAB PO SCH (08:57)
[2017-02-02] MEDS: buPROPion HCL 150 MG SUSTAINED RELEASE TAB PO SCH ×2 (08:58→15:57)
[2017-02-02] MEDS: clonazePAM 0.5 MG TAB PO SCH ×2 (09:00→20:59)
--- NOTE | 2017-02-02 10:01 | RADRPT ---
EXAM DATE/TIME: 02/02/2017 09:41 [facility] COMPARISON: No previous studies available for comparison. INDICATIONS : Dizziness. RADIATION DOSE: 56.35 CTDIvol (mGy) MEDICAL HISTORY : Cardiovascular disease. Major depressive disorder.Previous suicide attempt. SURGICAL HISTORY : Deviated septum ENCOUNTER: Initial ACUITY: 1 day PAIN SCALE: 0/10 LOCATION: cranial TECHNIQUE: Multiple contiguous axial images were obtained of the head. Using automated exposure control and adj ustment of the mA and/or kV according to patient size, radiation dose was kept as low as reasonably a chievable to obtain optimal diagnostic quality images. DICOM format image data is available electro nically for review and comparison. FINDINGS: CEREBRUM: The ventricles are normal for age. No evidence of midline shift, mass lesion, hemorrhage or acute in farction. No extra-axial fluid collections are seen. POSTERIOR FOSSA: The cerebellum and brainstem are intact. The 4th ventricle is midline. The cerebellopontine angle i s unremarkable. EXTRACRANIAL: The visualized portion of the orbits is intact. SKULL: The calvaria is intact. No evidence of skull fracture. CONCLUSION: Normal noncontrast head CT. Gen Grove MD on February 02, 2017 at 9:59 Board Certified Radiologist. This report was verified electronically.
[2017-02-02] MEDS: hydrOXYzine HCL 50 MG TAB PO PRN (11:08)
[2017-02-02] MEDS: ACETAMINOPHEN 325 MG TAB PO PRN (11:08)
[2017-02-02] MEDS: FERROUS SULFATE 325 MG (65 MG ELEMENTAL IRON) TAB PO SCH ×2 (12:13→17:21)
--- NOTE | 2017-02-02 13:11 | HHI.PYPN ---
Subjective Chief Complaint: Depression, suicide attempt Remarks Pt seen and discussed with staff. She has been anxious and intrusive. She reports that she feels wellbutrin wears off and isn't as effective. She remains depressed. Medication compliant. No SI/HI Mental Status Examination Appearance: Appropriate Consciousness: Alert Orientation: x4 Motor Activity: Normal gait, Other (no motor abnormalities appreciated) Speech: Unremarkable Language: Adequate Fund of Knowledge: Adequate Attention and Concentration: Adequate Memory: Unremarkable Mood: Other (depressed but improving) Affect: Sad Thought Process & Associations: Intact, Logical, Goal directed, Linear Thought Content: Appropriate Hallucination Type: None Delusion Type: None Suicidal Ideation: No Suicidal Plan: No Suicidal Intention: No Homicidal Ideation: No Homicidal Plan: No Homicidal Intention: No Insight: Fair Judgment: Impulsive Results Vitals/IOs Vital Signs Date Time Temp Pulse Resp B/P (MAP) Pulse Ox O2 Delivery O2 Flow Rate FiO2 02/02/17 12:15 14 02/02/17 05:31 98.7 95 115/58 (77) 95 Assessment & Plan Problem List: (1) Major depressive disorder, recurrent severe without psychotic features ICD Codes: F33.2 - Major depressive disorder, recurrent severe without psychotic features (2) Anxiety ICD Codes: F41.9 - Anxiety disorder, unspecified Status: Acute (3) Noncompliance with medication regimen ICD Codes: Z91.14 - Patient's other noncompliance with medication regimen Assessment & Plan Consider changing bupropion to XL if on formulary. Estimated LOS: days Justification for Cont. Inpt. risk of decompensation Request HC Surrog/Guard Advoc?: Marianela Hernandez MD Feb 02, 2017 13:11
[2017-02-02 13:27] LABS: AUTOMATED NEUTROPHIL # 5.5 TH/MM3 (1.8-7.7); BASOPHIL # 0.1 TH/MM3 (0-0.2); BASOPHIL % 0.7 % (0.0-2.0); EOSINOPHIL # 0.1 TH/MM3 (0-0.4); EOSINOPHIL % 1.2 % (0.0-4.0); HEMATOCRIT 35.9 % (35.0-46.0); HEMO FLAGS DIFF FINAL; LYMPH % 20.3 % (9.0-44.0); LYMPHOCYTE # 1.6 TH/MM3 (1.0-4.8); MEAN CELL VOLUME 79.4 FL (80.0-100.0); MEAN CORPUSCULAR HEMOGLOBIN 25.6 PG (27.0-34.0); MEAN CORPUSCULAR HGB CONC 32.3 % (32.0-36.0); MONO % 7.1 % (0.0-8.0); NEUT % 70.7 % (16.0-70.0); PLATELET COUNT 246 TH/MM3 (150-450); RED BLOOD COUNT 4.53 MIL/MM3 (4.00-5.30); WHITE BLOOD COUNT 7.8 TH/MM3 (4.0-11.0)
--- NOTE | 2017-02-02 13:35 | HHI.PR ---
Subjective Remarks denies headache or any further dizziness. Objective Vitals Vital Signs Date Time Temp Pulse Resp B/P (MAP) Pulse Ox O2 Delivery O2 Flow Rate FiO2 02/02/17 12:15 14 02/02/17 05:31 98.7 95 16 115/58 (77) 95 02/01/17 17:09 98.1 101 16 113/80 (91) 97 Result Diagram: 02/02/17 1300 01/31/17 0632 Imaging Last Impressions Head CT 02/02/17 0000 Signed Impressions: Service Date/Time: Thursday, February 02, 2017 09:41 - CONCLUSION: Normal noncontrast head CT. Gen Grove MD Carotid Artery Ultrasound 01/31/17 0000 Signed Impressions: Service Date/Time: Tuesday, January 31, 2017 21:49 - CONCLUSION: Normal examination. Gen Cruz MD Objective Remarks AAOx3 clear lungs S1S2 RRR abdomen soft, nt, nd no edema in extremities Medications and IVs Current Medications Medications (Trade) Dose Ordered Sig/Nga Route Start Time Stop Time Status Last Admin (Tylenol) 650 mg Q4H PRN PO 01/21/17 14:15 02/02/17 11:08 (Milk Of Magnesia Liq) 30 ml DAILY PRN PO 01/21/17 14:15 (Mag-Al Plus Susp Liq) 30 ml Q6H PRN PO 01/21/17 14:15 (Atarax) 50 mg Q6H PRN PO 01/22/17 11:00 02/02/17 11:08 (Ferrous Sulfate) 325 mg BID@ PO 01/22/17 17:00 02/02/17 12:13 Miscellaneous Information 1 HS T-DERMAL 01/22/17 21:00 (Pill Splitter) 1 ea UNSCH PRN OTHER 01/23/17 14:00 (Ambien) 5 mg HS PRN PO 01/23/17 15:45 02/02/17 00:50 (Wellbutrin Sr) 150 mg Taper BID@0900,1500 PO 01/25/17 09:00 02/05/17 08:59 02/02/17 08:58 ([place] Juan J [place]) 2 spray Q4H PRN EACH NARE 01/27/17 17:45 (Motrin) 800 mg Q8H PRN PO 01/28/17 14:45 01/30/17 15:21 (Zoloft) 150 mg DAILY PO 01/29/17 09:00 02/02/17 08:57 (KlonoPIN) 0.25 mg BID PO 01/30/17 21:00 02/02/17 09:00 (SEROquel) 100 mg HS PO 01/30/17 21:00 02/01/17 21:37 (Antivert) 25 mg Q8H PRN PO 01/31/17 18:45 02/01/17 15:23 A/P Assessment and Plan Depression status post OD on tetracyclic antidepressant Management per psychiatry Sinus tachycardia- improved- likely related to underlying psychiatric - Patient still tachycardic. EKG reviewed by me with normal sinus rythm. - Tsh normal. - check 2 D echocardiogram. Hypercholesterolemia. High cholesterol high triglyceride Continue low cholesterol diet LDL very elevated, will start on low dose statin. Normal hemoglobin A1C Iron deficiency anemia. Low ferritin stores high TIBC. possibly nutritional in related patient mentions cycle regular LMP 2 weeks ago denies any menorrhagia. - Denies any melena or hematochezia Continue iron sulfate twice a day Dizziness unclear etiology, carotids us negative, EKG normal sinus rythm. orthostatics negative. 02/[address] negative. 2 D echocardiogram ordered and pending. Roby Neal MD Feb 02, 2017 13:35
[2017-02-02 13:46] LABS: ALT (GPT) 38 U/L (10-53); ANION GAP 7 MEQ/L (5-15); AST (GOT) 20 U/L (15-37); BICARBONATE 27.8 MEQ/L (21.0-32.0); BLOOD UREA NITROGEN 10 MG/DL (7-18); CHLORIDE 105 MEQ/L (98-107); GLOMERULAR FILTRATION RATE 59 ML/MIN (>89); SODIUM (NA) 140 MEQ/L (136-145); TOTAL BILIRUBIN ADULT 0.3 MG/DL (0.2-1.0)
[2017-02-02 13:49] LABS: ALKALINE PHOSPHATASE 118 U/L (45-117); BETA HCG QUANT LESS THAN 1 MIU/ML (0-5)
[2017-02-02 17:20] VITALS: PULSE 102; TEMP 98.5
[2017-02-02 17:21] VITALS: BP 138/83; PULSE 102; RESP 18; TEMP 98.3; O2SAT 98
[2017-02-02] MEDS: QUEtiapine FUMARATE 100 MG TAB PO SCH (20:59)
[2017-02-02] MEDS: REMOVE OLD NICODERM (NICOTINE) PATCH T-DERMAL SCH (20:59)
[2017-02-02] MEDS: ATORVASTATIN 10 MG TAB PO SCH (20:59)
[2017-02-03 06:00] VITALS: BP 111/59; PULSE 95; RESP 17; TEMP 97.8; O2SAT 97
[2017-02-03] MEDS: clonazePAM 0.5 MG TAB PO SCH ×2 (08:15→20:34)
[2017-02-03] MEDS: buPROPion HCL 150 MG SUSTAINED RELEASE TAB PO SCH ×2 (08:15→15:09)
[2017-02-03] MEDS: SERTRALINE HCL 50 MG TAB PO SCH (08:15)
[2017-02-03] MEDS: hydrOXYzine HCL 50 MG TAB PO PRN ×2 (08:19→15:09)
--- NOTE | 2017-02-03 09:53 | HHI.PR ---
Subjective Remarks in no acute distress. mildly tachycardic but with no chest pain or sob. otherwise no other new complaints. Objective Vitals Vital Signs Date Time Temp Pulse Resp B/P (MAP) Pulse Ox O2 Delivery O2 Flow Rate FiO2 02/03/17 06:00 97.8 95 17 111/59 (76) 97 02/02/17 17:21 98.3 102 18 138/83 (101) 98 02/02/17 17:20 98.5 102 02/02/17 12:15 14 I/O 02/02/17 02/02/17 02/02/17 02/03/17 02/03/17 02/03/17 07:00 15:00 23:00 07:00 15:00 23:00 Intake Total 240 ml Balance 240 ml Intake Oral 240 ml Result Diagram: 02/02/17 1300 02/02/17 1300 Imaging Last Impressions Head CT 02/02/17 0000 Signed Impressions: Service Date/Time: Thursday, February 02, 2017 09:41 - CONCLUSION: Normal noncontrast head CT. Gen Grove MD Carotid Artery Ultrasound 01/31/17 0000 Signed Impressions: Service Date/Time: Tuesday, January 31, 2017 21:49 - CONCLUSION: Normal examination. Gen Cruz MD Objective Remarks GENERAL: This is a well-nourished, well-developed patient, in no apparent distress. CARDIOVASCULAR: mildly tachycardic without murmurs, gallops, or rubs. RESPIRATORY: Clear to auscultation. Breath sounds equal bilaterally. No wheezes , rales, or rhonchi. GASTROINTESTINAL: Abdomen soft, non-tender, nondistended. Normal, active bowel sounds MUSCULOSKELETAL: Extremities without clubbing, cyanosis, or edema. NEURO: Alert & Oriented x4 to person, place, time, situation. Moves all ext x4 Medications and IVs Current Medications Atenolol (Tenormin) 25 mg DAILY PO Last administered on 01/23/17 08:24; Start 01/22/17 at 09:00; Stop 01/23/17 at 13:51; Status DC Clonazepam (KlonoPIN) 0.5 mg Q8HR PO Last administered on 01/24/17 06:28; Start 01/21/17 at 14:15; Stop 01/24/17 at 12:52; Status DC Lorazepam (Ativan) 1 mg Q6H PRN PO MODERATE TO SEVERE ANXIETY Last administered on 01/22/17 09:28; Start 01/21/17 at 14:15; Stop 01/22/17 at 10:51 ; Status DC Lorazepam (Ativan Inj) 1 mg Q6H PRN IM MODERATE TO SEVERE ANXIETY; Start at 14:15; Stop 01/22/17 at 10:51; Status DC Lorazepam (Ativan) 0.5 mg Q12H PRN PO MODERATE TO SEVERE ANXIETY; Start at 14:15; Stop 01/21/17 at 14:15; Status DC Lorazepam (Ativan Inj) 0.5 mg Q12H PRN IM MODERATE TO SEVERE ANXIETY; Start at 14:15; Stop 01/21/17 at 14:15; Status DC Acetaminophen (Tylenol) 650 mg Q4H PRN PO Pain 1-5 or Temp >101F Last administered on 02/02/17 11:08; Start 01/21/17 at 14:15 Magnesium Hydroxide (Milk Of Magnesia Liq) 30 ml DAILY PRN PO CONSTIPATION; Start 01/21/17 at 14:15 Al Hydrox/Mg Hydrox/Simethicone (Mag-Al Plus Susp Liq) 30 ml Q6H PRN PO DYSPEPSIA; Start 01/21/17 at 14:15 Nicotine (Habitrol 21 Mg Patch.24 Hr) 1 patch DAILY T-DERMAL ; Start 01/21/17 at 14:15; Stop 01/29/17 at 09:20; Status DC Miscellaneous Information 1 DAILY T-DERMAL ; Start 01/21/17 at 14:08; Stop at 09:20; Status DC Hydroxyzine HCl (Atarax) 50 mg Q6H PRN PO ANXIETY Last administered on 08:19; Start 01/22/17 at 11:00 Sertraline HCl (Zoloft) 50 mg DAILY PO Last administered on 01/23/17 08:24; Start 01/22/17 at 11:00; Stop 01/23/17 at 15:33; Status DC Bupropion HCl (Wellbutrin Sr) 150 mg DAILY PO Last administered on 01/24/17 08:42; Start 01/22/17 at 11:00; Stop 01/24/17 at 12:52; Status DC Ferrous Sulfate (Ferrous Sulfate) 325 mg BID@12,17 PO Last administered on 17:21; Start 01/22/17 at 17:00 Miscellaneous Information 1 HS T-DERMAL ; Start 01/22/17 at 21:00 Atenolol (Tenormin) 12.5 mg DAILY PO Last administered on 01/24/17 08:43; Start 01/24/17 at 09:00; Stop 01/24/17 at 13:40; Status DC Miscellaneous (Pill Splitter) 1 ea UNSCH PRN OTHER SEE LABEL COMMENTS; Start 01/23/17 at 14:00 Sertraline HCl (Zoloft) 100 mg DAILY PO Last administered on 01/28/17 08:47; Start 01/24/17 at 09:00; Stop 01/28/17 at 14:59; Status DC Zolpidem Tartrate (Ambien) 5 mg HS PRN PO INSOMNIA Last administered on 20:58; Start 01/23/17 at 15:45 Clonazepam (KlonoPIN) 0.5 mg BID PO Last administered on 01/30/17 08:46; Start 01/24/17 at 21:00; Stop 01/30/17 at 11:45; Status DC Bupropion HCl (Wellbutrin Sr) 150 mg Taper BID@0900,1500 PO Last administered on 02/03/17 08:15; Start 01/25/17 at 09:00; Stop 02/05/17 at 08:59 Sodium Chloride ([place]) 2 spray Q4H PRN EACH NARE NASAL CONGESTION; Start 01/27/17 at 17:45 Quetiapine Fumarate (SEROquel) 50 mg HS PO Last administered on 01/29/17 20: 32; Start 01/27/17 at 21:00; Stop 01/30/17 at 11:45; Status DC Ibuprofen (Motrin) 800 mg Q8H PRN PO Menstrual pain Last administered on 15:21; Start 01/28/17 at 14:45 Sertraline HCl (Zoloft) 150 mg DAILY PO Last administered on 02/03/17 08:15; Start 01/29/17 at 09:00 Clonazepam (KlonoPIN) 0.25 mg BID PO Last administered on 02/03/17 08:15; Start 01/30/17 at 21:00 Quetiapine Fumarate (SEROquel) 100 mg HS PO Last administered on 02/02/17 20: 59; Start 01/30/17 at 21:00 Meclizine HCl (Antivert) 25 mg Q8H PRN PO Dizziness Last administered on 15:23; Start 01/31/17 at 18:45 Atorvastatin Calcium (Lipitor) 10 mg HS PO Last administered on 02/02/17 20: 59; Start 02/02/17 at 21:00 A/P Assessment and Plan A/P Sinus tachycardia- - likely related to underlying psychiatric - EKG reviewed by me with normal sinus rhythm. - TSH normal. - 2 D echocardiogram pending. Hypercholesterolemia. High cholesterol high triglyceride Continue low cholesterol diet started on low dose statin. Iron deficiency anemia. possibly nutritional in related patient mentions cycle regular LMP 2 weeks ago denies any menorrhagia. - Denies any melena or hematochezia Continue iron sulfate twice a day Dizziness- better. carotids us negative, EKG normal sinus rhythm. orthostatics negative. Head CT negative. 2 D echocardiogram ordered and pending. Lizette Lopez MD Feb 03, 2017 09:53
--- NOTE | 2017-02-03 11:19 | HHI.PYPN ---
Subjective Chief Complaint: Depression, suicide attempt Remarks Patient seen and examined with nurse. Chart reviewed. Case discussed with nursing staff. No behavioral issues over the weekend. On my examination today , the patient reports ongoing slow improvement in depressive symptoms. She denies any suicidal ideation. She is sleeping well. No psychotic symptoms. She denies any side effects from medications. She would like to titrate her Wellbutrin to target residual mood symptoms, and we discussed the risks and benefits as well as the alternative options of this approach. She denies any further dizzy spells and reports no physical symptoms generally. Review of Systems Except as stated in HPI: all other systems reviewed are Neg Mental Status Examination Appearance: Appropriate Consciousness: Alert Orientation: x4 Motor Activity: Normal gait, Other (no motoric abnormalities noted) Speech: Unremarkable Language: Adequate Fund of Knowledge: Adequate Attention and Concentration: Adequate Memory: Unremarkable Mood: Other (remains somewhat depressed but improving) Affect: Other (moderate affective reactivity) Thought Process & Associations: Intact, Logical, Goal directed, Linear Thought Content: Appropriate Hallucination Type: None Delusion Type: None Suicidal Ideation: No Suicidal Plan: No Suicidal Intention: No Homicidal Ideation: No Homicidal Plan: No Homicidal Intention: No Insight: Fair Judgment: Impulsive Results Labs Test 02/02/17 13:00 White Blood Count 7.8 TH/MM3 Red Blood Count 4.53 MIL/MM3 Hemoglobin 11.6 GM/DL Hematocrit 35.9 % Mean Corpuscular Volume 79.4 FL Mean Corpuscular Hemoglobin 25.6 PG Mean Corpuscular Hemoglobin Concent 32.3 % Red Cell Distribution Width 17.0 % Platelet Count 246 TH/MM3 Mean Platelet Volume 9.6 FL Neutrophils (%) (Auto) 70.7 % Lymphocytes (%) (Auto) 20.3 % Monocytes (%) (Auto) 7.1 % Eosinophils (%) (Auto) 1.2 % Basophils (%) (Auto) 0.7 % Neutrophils # (Auto) 5.5 TH/MM3 Lymphocytes # (Auto) 1.6 TH/MM3 Monocytes # (Auto) 0.6 TH/MM3 Eosinophils # (Auto) 0.1 TH/MM3 Basophils # (Auto) 0.1 TH/MM3 CBC Comment DIFF FINAL Differential Comment Blood Urea Nitrogen 10 MG/DL Creatinine 1.08 MG/DL Random Glucose 104 MG/DL Total Protein 7.4 GM/DL Albumin 3.7 GM/DL Calcium Level 8.6 MG/DL Alkaline Phosphatase 118 U/L Aspartate Amino Transf (AST/SGOT) 20 U/L Alanine Aminotransferase (ALT/SGPT) 38 U/L Total Bilirubin 0.3 MG/DL Sodium Level 140 MEQ/L Potassium Level 4.0 MEQ/L Chloride Level 105 MEQ/L Carbon Dioxide Level 27.8 MEQ/L Anion Gap 7 MEQ/L Estimat Glomerular Filtration Rate 59 ML/MIN Human Chorionic Gonadotropin, Quant LESS THAN 1 MIU/ML Labs reviewed. GFR stable. Head CT read as normal noncontrast head CT. Vitals/IOs Vital Signs Date Time Temp Pulse Resp B/P (MAP) Pulse Ox O2 Delivery O2 Flow Rate FiO2 02/03/17 06:00 97.8 95 17 111/59 (76) 97 Intake and Output 02/03/17 02/03/17 02/04/17 08:00 16:00 00:00 Intake Total 240 ml Balance 240 ml Assessment & Plan Problem List: (1) Major depressive disorder, recurrent severe without psychotic features ICD Codes: F33.2 - Major depressive disorder, recurrent severe without psychotic features (2) Anxiety ICD Codes: F41.9 - Anxiety disorder, unspecified Status: Acute (3) Noncompliance with medication regimen ICD Codes: Z91.14 - Patient's other noncompliance with medication regimen Assessment & Plan Titrate Wellbutrin to 300/150 mg daily to target residual depressive symptoms. Continue Zoloft and Seroquel as ordered. Continue Klonopin as ordered. Hospitalist input noted and appreciated. Follow-up echocardiogram. Counselor has reached out to patient's who is reportedly comfortable accepting patient home. Counselor has, at my instruction, told to ensure home is secure of potential means of harm to self or others. I did, with patient's permission, leave a VM for patient's today in case he has any questions or concerns. Continue to monitor on the inpatient unit. Continue other medications and care as ordered. Justification for Cont. Inpt. Monitoring for impairments in safety, none noted. Med changes. Discharge Planning Anticipate discharge home later this week. Request HC Surrog/Guard Advoc?: No Junior Peraza MD Feb 03, 2017 11:18
[2017-02-03] MEDS: FERROUS SULFATE 325 MG (65 MG ELEMENTAL IRON) TAB PO SCH ×2 (12:11→17:06)
[2017-02-03 18:04] VITALS: BP 128/76; PULSE 99; RESP 17; TEMP 98.4; O2SAT 97
[2017-02-03] MEDS: ATORVASTATIN 10 MG TAB PO SCH (20:34)
[2017-02-03] MEDS: QUEtiapine FUMARATE 100 MG TAB PO SCH (20:34)
[2017-02-03] MEDS: REMOVE OLD NICODERM (NICOTINE) PATCH T-DERMAL SCH (20:35)
[2017-02-03] MEDS: ZOLPIDEM TARTRATE 5 MG TAB PO PRN (21:15)
[2017-02-04 05:34] VITALS: BP 115/68; PULSE 99; RESP 17; TEMP 98.5; O2SAT 97
[2017-02-04] MEDS: clonazePAM 0.5 MG TAB PO SCH (08:11)
[2017-02-04] MEDS: buPROPion HCL 150 MG SUSTAINED RELEASE TAB PO SCH ×2 (08:12→14:44)
[2017-02-04] MEDS: SERTRALINE HCL 50 MG TAB PO SCH (08:12)
[2017-02-04] MEDS: ACETAMINOPHEN 325 MG TAB PO PRN ×2 (10:23→16:47)
--- NOTE | 2017-02-04 10:58 | HHI.PYPN ---
Subjective Chief Complaint: Depression, suicide attempt Remarks Patient seen and examined with nurse. Chart reviewed. Case discussed with nurse and in treatment team. On my examination today, patient continues to report slow improvement in depressive symptomatology. She continues to experience some periodic low mood and asks about titration of Seroquel to target residual depressive symptoms. She is sleeping better with Seroquel. She does not think the Klonopin is doing much, good or bad. She denies any suicidal ideation at this time. Denies side effects from medications. No physical complaints. Extensive safety planning discussion with patient as she is hopeful for discharge within the next day or so. We discuss warning signs and triggers for her previous suicide attempts. She does note that she called the suicide hotline the morning of her overdose but reports that she was not advised to go to the ED. I have instructed her to always go to the ED if she is experiencing SI, especially given her history. She identifies her Aunt, who also reportedly has suffered from depression in the past, as someone with whom she can keep in close contact going forward. She feels that Aunt would be sensitive to signs of psychiatric decompensation and could tell patient to seek help if needed. Review of Systems Except as stated in HPI: all other systems reviewed are Neg Mental Status Examination Appearance: Appropriate Consciousness: Alert Orientation: x4 Motor Activity: Normal gait, Other (no motoric abnormalities noted) Speech: Unremarkable Language: Adequate Fund of Knowledge: Adequate Attention and Concentration: Adequate Memory: Unremarkable Mood: Other (depressed but continues to improve) Affect: Other (fair affective reactivity) Thought Process & Associations: Intact, Logical, Goal directed, Linear Thought Content: Appropriate Hallucination Type: None Delusion Type: None Suicidal Ideation: No Suicidal Plan: No Suicidal Intention: No Homicidal Ideation: No Homicidal Plan: No Homicidal Intention: No Insight: Fair Judgment: Adequate (fair) Results Labs Labs reviewed. No new labs. Echocardiogram pending. Vitals/IOs Vital Signs Date Time Temp Pulse Resp B/P (MAP) Pulse Ox O2 Delivery O2 Flow Rate FiO2 02/04/17 05:34 98.5 99 17 115/68 (84) 97 Assessment & Plan Problem List: (1) Major depressive disorder, recurrent severe without psychotic features ICD Codes: F33.2 - Major depressive disorder, recurrent severe without psychotic features (2) Anxiety ICD Codes: F41.9 - Anxiety disorder, unspecified Status: Acute (3) Noncompliance with medication regimen ICD Codes: Z91.14 - Patient's other noncompliance with medication regimen Assessment & Plan Titrate Seroquel to 150 mg at bedtime. Discontinue Klonopin. Continue other psychotropics as ordered. Follow-up echocardiogram. Hospitalist input noted and appreciated. Continue to monitor on the inpatient unit. Continue other medications and care as ordered. Justification for Cont. Inpt. Med changes Discharge Planning Anticipate discharge tomorrow, Friday. Case discussed with counselor. Request HC Surrog/Guard Advoc?: No Junior Peraza MD Feb 04, 2017 10:58
--- NOTE | 2017-02-04 11:06 | HHI.PR ---
Subjective Remarks in no distress. denies chest pain, sob or dizziness. d/w the RN and no acute issues over night. Objective Vitals Vital Signs Date Time Temp Pulse Resp B/P (MAP) Pulse Ox O2 Delivery O2 Flow Rate FiO2 02/04/17 05:34 98.5 99 17 115/68 (84) 97 02/03/17 18:04 98.4 99 17 128/76 (93) 97 I/O 02/03/17 02/03/17 02/03/17 02/04/17 02/04/17 02/04/17 07:00 15:00 23:00 07:00 15:00 23:00 Intake Total 540 ml 240 ml Balance 540 ml 240 ml Intake Oral 540 ml 240 ml Result Diagram: 02/02/17 1300 02/02/17 1300 Imaging Last Impressions Head CT 02/02/17 0000 Signed Impressions: Service Date/Time: Thursday, February 02, 2017 09:41 - CONCLUSION: Normal noncontrast head CT. Gen Grove MD Carotid Artery Ultrasound 01/31/17 0000 Signed Impressions: Service Date/Time: Tuesday, January 31, 2017 21:49 - CONCLUSION: Normal examination. Gen Cruz MD Objective Remarks GENERAL: This is a well-nourished, well-developed patient, in no apparent distress. CARDIOVASCULAR: mildly tachycardic without murmurs, gallops, or rubs. RESPIRATORY: Clear to auscultation. Breath sounds equal bilaterally. No wheezes , rales, or rhonchi. GASTROINTESTINAL: Abdomen soft, non-tender, nondistended. Normal, active bowel sounds MUSCULOSKELETAL: Extremities without clubbing, cyanosis, or edema. NEURO: Alert & Oriented x4 to person, place, time, situation. Moves all ext x4 Medications and IVs Current Medications Atenolol (Tenormin) 25 mg DAILY PO Last administered on 01/23/17 08:24; Start 01/22/17 at 09:00; Stop 01/23/17 at 13:51; Status DC Clonazepam (KlonoPIN) 0.5 mg Q8HR PO Last administered on 01/24/17 06:28; Start 01/21/17 at 14:15; Stop 01/24/17 at 12:52; Status DC Lorazepam (Ativan) 1 mg Q6H PRN PO MODERATE TO SEVERE ANXIETY Last administered on 01/22/17 09:28; Start 01/21/17 at 14:15; Stop 01/22/17 at 10:51 ; Status DC Lorazepam (Ativan Inj) 1 mg Q6H PRN IM MODERATE TO SEVERE ANXIETY; Start at 14:15; Stop 01/22/17 at 10:51; Status DC Lorazepam (Ativan) 0.5 mg Q12H PRN PO MODERATE TO SEVERE ANXIETY; Start at 14:15; Stop 01/21/17 at 14:15; Status DC Lorazepam (Ativan Inj) 0.5 mg Q12H PRN IM MODERATE TO SEVERE ANXIETY; Start at 14:15; Stop 01/21/17 at 14:15; Status DC Acetaminophen (Tylenol) 650 mg Q4H PRN PO Pain 1-5 or Temp >101F Last administered on 02/04/17 10:23; Start 01/21/17 at 14:15 Magnesium Hydroxide (Milk Of Magnesia Liq) 30 ml DAILY PRN PO CONSTIPATION; Start 01/21/17 at 14:15 Al Hydrox/Mg Hydrox/Simethicone (Mag-Al Plus Susp Liq) 30 ml Q6H PRN PO DYSPEPSIA; Start 01/21/17 at 14:15 Nicotine (Habitrol 21 Mg Patch.24 Hr) 1 patch DAILY T-DERMAL ; Start 01/21/17 at 14:15; Stop 01/29/17 at 09:20; Status DC Miscellaneous Information 1 DAILY T-DERMAL ; Start 01/21/17 at 14:08; Stop at 09:20; Status DC Hydroxyzine HCl (Atarax) 50 mg Q6H PRN PO ANXIETY Last administered on 15:09; Start 01/22/17 at 11:00 Sertraline HCl (Zoloft) 50 mg DAILY PO Last administered on 01/23/17 08:24; Start 01/22/17 at 11:00; Stop 01/23/17 at 15:33; Status DC Bupropion HCl (Wellbutrin Sr) 150 mg DAILY PO Last administered on 01/24/17 08:42; Start 01/22/17 at 11:00; Stop 01/24/17 at 12:52; Status DC Ferrous Sulfate (Ferrous Sulfate) 325 mg BID@ PO Last administered on 17:06; Start 01/22/17 at 17:00 Miscellaneous Information 1 HS T-DERMAL ; Start 01/22/17 at 21:00 Atenolol (Tenormin) 12.5 mg DAILY PO Last administered on 01/24/17 08:43; Start 01/24/17 at 09:00; Stop 01/24/17 at 13:40; Status DC Miscellaneous (Pill Splitter) 1 ea UNSCH PRN OTHER SEE LABEL COMMENTS; Start 01/23/17 at 14:00 Sertraline HCl (Zoloft) 100 mg DAILY PO Last administered on 01/28/17 08:47; Start 01/24/17 at 09:00; Stop 01/28/17 at 14:59; Status DC Zolpidem Tartrate (Ambien) 5 mg HS PRN PO INSOMNIA Last administered on 21:15; Start 01/23/17 at 15:45 Clonazepam (KlonoPIN) 0.5 mg BID PO Last administered on 01/30/17 08:46; Start 01/24/17 at 21:00; Stop 01/30/17 at 11:45; Status DC Bupropion HCl (Wellbutrin Sr) 150 mg Taper BID@0900,1500 PO Last administered on 02/03/17 08:15; Start 01/25/17 at 09:00; Stop 02/03/17 at 11:21; Status DC Sodium Chloride ([place]) 2 spray Q4H PRN EACH NARE NASAL CONGESTION; Start 01/27/17 at 17:45 Quetiapine Fumarate (SEROquel) 50 mg HS PO Last administered on 01/29/17 20: 32; Start 01/27/17 at 21:00; Stop 01/30/17 at 11:45; Status DC Ibuprofen (Motrin) 800 mg Q8H PRN PO Menstrual pain Last administered on 15:21; Start 01/28/17 at 14:45 Sertraline HCl (Zoloft) 150 mg DAILY PO Last administered on 02/04/17 08:12; Start 01/29/17 at 09:00 Clonazepam (KlonoPIN) 0.25 mg BID PO Last administered on 02/04/17 08:11; Start 01/30/17 at 21:00; Stop 02/04/17 at 10:59; Status DC Quetiapine Fumarate (SEROquel) 100 mg HS PO Last administered on 02/03/17 20: 34; Start 01/30/17 at 21:00; Stop 02/04/17 at 10:59; Status DC Meclizine HCl (Antivert) 25 mg Q8H PRN PO Dizziness Last administered on 15:23; Start 01/31/17 at 18:45 Atorvastatin Calcium (Lipitor) 10 mg HS PO Last administered on 02/03/17 20: 34; Start 02/02/17 at 21:00 Bupropion HCl (Wellbutrin Sr) 300 mg DAILY PO Last administered on 02/04/17 08:12; Start 02/04/17 at 09:00 Bupropion HCl (Wellbutrin Sr) 150 mg DAILY@1500 PO Last administered on 15:09; Start 02/03/17 at 15:00 Quetiapine Fumarate (SEROquel) 150 mg HS PO ; Start 02/04/17 at 21:00; Status UNV A/P Assessment and Plan A/P Sinus tachycardia- - likely related to underlying psychiatric condition - EKG reviewed by me with normal sinus rhythm. - TSH normal. - 2 D echocardiogram pending. -will try low dose Atenolol Hypercholesterolemia. High cholesterol high triglyceride Continue low cholesterol diet started on low dose statin. Iron deficiency anemia. possibly nutritional in related patient mentions cycle regular LMP 2 weeks ago denies any menorrhagia. - Denies any melena or hematochezia Continue iron sulfate twice a day Dizziness- better. carotids us negative, EKG normal sinus rhythm. orthostatics negative. Head CT negative. 2 D echocardiogram ordered and pending. Lizette Lopez MD Feb 04, 2017 11:06
[2017-02-04] MEDS: FERROUS SULFATE 325 MG (65 MG ELEMENTAL IRON) TAB PO SCH ×2 (11:38→16:42)
[2017-02-04] MEDS: ATENOLOL 25 MG TAB PO SCH (11:38)
[2017-02-04] MEDS: hydrOXYzine HCL 50 MG TAB PO PRN (11:42)
--- NOTE | 2017-02-04 12:59 | PD.TTN ---
Patient Problems 1. Discharge planning 2. Medication compliance 3. Knowledge deficit 4. Lack of coping skills Progress Toward Goals Provider Present: Dr. Rui Peraza Provider Input: Patient has been started on medication regiment and has been compliant with medications. Patient denies side effects. patient currently denies suicidal ideations but does endorse feelings of depression. 01/31/17 Per Doctor patient is slowly improving and meds are still adjusted. Aniticipated discharge is Friday or Friday of next week. 02/04/17 Patient can possibly go home today. Patient is waiting on medical clearance. Continue with treatment Nurse(s) Input: Patient is observed to be out in the dayroom and has been compliant with medications. patient is more social but does continue to states she has low energy and mood. Patient is attending to all ADLs and is eating all meals. 01/31/17 patient is compliant. 01/1717 Per patient's nurse Shannen patient is still depressed but not having thoughts of hurting herself while here. Patient wants to increaase medications to see if it helps with depression. Psychiatric Counselors Present: Sofi Gustafson [facility] Psych Therapist Input: Patient states that she is feeling a little bit better with medication and notes that due to her previous noncompliance, it had made her feel worse. patient states that she aware on continuing on her medications and is able to identify appropriate goals for discharge. Patient states that she will continue to attend outpatient therapy and support group. 01/31/17 patient feels she is improving. She is established with a psychiatrist and feels comfortable with a discharge next week home to her . 02/04/17 Patient states she is not feeling suicidal and homicidal. Patient presented calm, depressed, childlike, affect blunted. Patient's speech is clear, organized with pressure. Patient is medication compliant. Reports eating and sleeping ok. Patient is participating in groups but does isolate and needs to be prompted. Group Spec/RT/OT/MENON Present: Chanel Ortiz, DION, LYNSEY Neumann Group Spec/RT/OT/MENON Input: Patient does attend group and provides insight upon admission and is appropriate. 01/31/17 Patient actively participates. She is social with peers. 02/04/17 Patient comes to groups 60% of time but needs prompting, quiet oftens isolates. Laya Alvarez [facility] Feb 04, 2017 12:59
--- NOTE | 2017-02-04 14:51 | ECHRPT ---
Indication: sinus tachycardia CONCLUSIONS The left ventricular systolic function is normal with an estimated ejection fraction in the range of 60-65%. Probable normal diastolic function. Trace mitral valve regurgitation. There is mild tricuspid valve regurgitation. BP: / HR: Rhythm: MEASUREMENTS (Male / Female) Normal Values Technical Quality:Good 2D ECHO LV Diastolic Diameter PLAX 4.2 cm 4.2 - 5.9 / 3.9 - 5.3 cm LV Systolic Diameter PLAX 2.9 cm IVS Diastolic Thickness 1.0 cm 0.6 - 1.0 / 0.6 - 0.9 cm LVPW Diastolic Thickness 0.9 cm 0.6 - 1.0 / 0.6 - 0.9 cm LV Relative Wall Thickness 0.4 RV Internal Dim ED PLAX 2.9 cm M-MODE Aortic Root Diameter MM 3.1 cm LA Systolic Diameter MM 3.4 cm LA Ao Ratio MM 1.1 AV Cusp Separation MM 2.0 cm DOPPLER Mitral E Point Velocity 59.2 cm/s Mitral A Point Velocity 77.0 cm/s Mitral E to A Ratio 0.8 LV E' Lateral Velocity 11.5 cm/s Mitral E to LV E' Lateral Ratio 5.1 LV E' Septal Velocity 8.2 cm/s Mitral E to LV E' Septal Ratio 7.2 TR Peak Velocity 216.0 cm/s TR Peak Gradient 18.7 mmHg Right Atrial Pressure 10.0 mmHg Pulmonary Artery Systolic Pressu 28.7 mmHg Right Ventricular Systolic Press 28.7 mmHg FINDINGS LEFT VENTRICLE The left ventricular systolic function is normal with an estimated ejection fraction in the range of 60-65%. Normal left ventricular size. Wall thickness is normal. Probable normal diastolic function RIGHT VENTRICLE Normal right ventricular size and systolic function. LEFT ATRIUM The left atrial size is normal. RIGHT ATRIUM The right atrial size is normal. ATRIAL SEPTUM Normal atrial septal thickness without atrial level shunting by limited color doppler interrogation. AORTA The aortic root and proximal ascending aorta are normal in size on limited imaging. MITRAL VALVE Trace mitral valve regurgitation. Structurally normal mitral valve. No mitral valve stenosis. AORTIC VALVE Trileaflet aortic valve. No aortic valve stenosis or regurgitation. TRICUSPID VALVE There is mild tricuspid valve regurgitation. Structurally normal tricuspid valve. The estimated pulmonary arterial pressure is 28.7 mmHg. No tricuspid valve stenosis. PULMONARY VALVE The pulmonary valve is not well visualized. No pulmonary valve regurgitation. VESSELS The inferior vena cava is normal in size. PERICARDIUM No pericardial effusion. Barrie Silva DO (Electronically Signed) Final Date:04 February 2017 14:50
[2017-02-04 18:00] VITALS: BP 117/57; PULSE 83; RESP 16; TEMP 98.2; O2SAT 99
[2017-02-04] MEDS ORDERED: QUEtiapine FUMARATE 100 MG TAB PO SCH (21:00)
[2017-02-04] MEDS: REMOVE OLD NICODERM (NICOTINE) PATCH T-DERMAL SCH (21:00)
[2017-02-04] MEDS: ATORVASTATIN 10 MG TAB PO SCH (21:28)
[2017-02-04] MEDS: ZOLPIDEM TARTRATE 5 MG TAB PO PRN (21:28)
[2017-02-05 05:34] VITALS: BP 104/55; PULSE 87; RESP 18; TEMP 98; O2SAT 97
[2017-02-05] MEDS: ATENOLOL 25 MG TAB PO SCH (07:54)
[2017-02-05] MEDS: buPROPion HCL 150 MG SUSTAINED RELEASE TAB PO SCH ×2 (07:54→15:48)
[2017-02-05] MEDS: SERTRALINE HCL 50 MG TAB PO SCH (07:54)
[2017-02-05] MEDS ORDERED: LIPI10TA PO (10:30)
[2017-02-05] MEDS ORDERED: QUET1TAB8 PO (10:30)
[2017-02-05] MEDS ORDERED: ZOLO50TA PO (10:30)
[2017-02-05] MEDS ORDERED: ATEN25TA PO (10:30)
[2017-02-05] MEDS ORDERED: BUPR150CR PO (10:30)
--- NOTE | 2017-02-05 10:30 | HHI.DS ---
Psychiatry Discharge Summary Inpatient Psychiatric care?: Yes Advance Directive: No Reason Not Provided: does not have Mental Health AdvanceDirective: No Health Care Proxy: No Admission Admission Date Jan 21, 2017 at 13:17 Admission Diagnosis: (1) Major depressive disorder, recurrent severe without psychotic features ICD Code: F33.2 - Major depressive disorder, recurrent severe without psychotic features (2) Anxiety ICD Code: F41.9 - Anxiety disorder, unspecified (3) Noncompliance with medication regimen ICD Code: Z91.14 - Patient's other noncompliance with medication regimen Brief History Ms. Perez is a 31-year-old female with a history of depression who presents in transfer from the medical floor following an overdose on tricyclic antidepressant medications. Patient was evaluated in consultation on the medical floor by Dr. Segura and later by Dr. Rosenberg. Reviewing the electronic medical record, I note the patient was admitted most recently under my care in September/October of this year. Patient seen and examined with nurse. Chart reviewed. Case discussed with nursing staff. On my examination today, the patient reports that after leaving the hospital last time she stopped taking her medications in early November because she didn't feel like they were helping. However, after she stopped her psychotropic medications her mood worsened. She says that she has been dealing with numerous psychosocial stressors including family issues, not liking where she is living and difficulties in her relationship with her . She says that she impulsively overdosed on 6 Pamelor caps that she had around. She says that this overdose was impulsive although she does endorse preceding suicidal ideation. She is ambivalent about having survived her overdose but denies any active urge to hurt herself on the inpatient psychiatric unit. No homicidal ideation. Mood remains "depressed so bad." She endorses lack of motivation, hopelessness/worthlessness. Anhedonia is present. She has comorbid anxiety, chiefly generalized. No audiovisual hallucinations or delusional material elicited. No hypomanic or manic symptoms. The remainder of the psychiatric ROS is negative. No physical complaints. Past psychiatric history: Patient has a history of depression and anxiety. Depression was reportedly diagnosed in early s but she cannot recall having felt well psychiatrically since then despite multiple med adjustments. She reports that she was unable to follow up with Dr. Mills as she had planned and so instead continued with [facility] provider [facility]. She has not been engaging in psychotherapy with her previous provider Lesli Pepe because of financial issues. She denies any interval psychiatric admissions or suicide attempts. She does endorse having engaged in some nonsuicidal self- injurious behavior since discharge last time, namely cutting. Reviewing patient 's previous medication trials, the patient reports multiple trials of SSRIs, SNRIs, Abilify, Latuda. She feels she did the best on Zoloft/Wellbutrin combination, although she experienced tachyphylaxis. She does not recall the doses but knows she got them from [facility]. I called over to [facility] and they report patient was on Zoloft 50mg daily and Wellbutrin XL 150mg daily. Tobacco Use In Past 30 Days: No Tobacco Past 30 Days Alcohol Use: Monthly or Less Hospital Course Patient was admitted to a locked, inpatient psychiatric unit. A general medical consultation was obtained. Appropriate precautions were in place throughout patient's hospital stay. Patient was seen and examined on the unit by psychiatry and also visited by counselor. Psychotropic medications were adjusted. Patient tolerated medication changes well without side effects. Patient had improvement in presenting psychiatric symptomatology during the course of her hospital stay. There was no evidence of any suicidality or homicidality on the inpatient unit. The patient remained in good behavioral control and was medication compliant. Counselor was able to reach out the patient's and counseled him to secure the home of potential means of harm to self/others including medications. Per the counselor, is reportedly comfortable accepting the patient home. On the day of discharge: Patient seen and examined with nurse. Chart reviewed. Case discussed with nursing staff. Case discussed counselor. No behavioral issues overnight. On my examination today, patient reports that she feels ready to leave the hospital today. She denies any suicidal or homicidal ideation, intent or plan on direct questioning and contracts for safety. We review the safety plan. Mood continues to slowly improve. No severe depressive symptoms elicited. No hypomanic or manic symptoms noted. No complaints of anxiety. She denies audiovisual hallucinations, and I can elicit no delusional beliefs. 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 We review echocardiogram findings. She denies side effects from medications. No physical complaints. Weighing the acute, chronic, and protective factors and based on the available evidence, I nurse manager to a reasonable degree of medical certainty that the patient is at low imminent risk of harm to self or others from a mental illness as defined under the [place] act and her level of function is adequate for outpatient care. The patient has maximized benefit from this inpatient psychiatric hospital stay and will be discharged today with psychiatric follow-up as arranged by counselor. Patient is also to follow-up with primary care. We will fill the patient's prescriptions prior to discharge , and I have instructed the nurse to deliver the medications directly to the patient's who will be picking the patient up so that they may be secured , and the patient is agreeable to this plan. Patient to return to psychiatric emergency room for any concerning psychiatric symptoms. Results Blood Pressure 104 / 55 Vital Signs Date Time Temp Pulse Resp B/P (MAP) Pulse Ox O2 Delivery O2 Flow Rate FiO2 02/05/17 05:34 98.0 87 18 104/55 (71) 97 Laboratory Tests Test 02/02/17 13:00 Mean Corpuscular Volume 79.4 FL (80.0-100.0) Mean Corpuscular Hemoglobin 25.6 PG (27.0-34.0) Neutrophils (%) (Auto) 70.7 % (16.0-70.0) Creatinine 1.08 MG/DL (0.50-1.00) Alkaline Phosphatase 118 U/L (45-117) Estimat Glomerular Filtration Rate 59 ML/MIN (>89) Laboratory Results Test 01/22/17 07:22 Cholesterol Level 257 MG/DL (120-200) HDL Cholesterol 50.6 MG/DL (40.0-60.0) Hemoglobin A1c 5.3 % (4.3-6.0) LDL Cholesterol 176 MG/DL (0-99) Triglycerides Level 153 MG/DL (42-150) Summary of Procedures Echocardiogram revealed normal ejection fraction and trace mitral and mild tricuspid regurgitation. Imaging Last Impressions Head CT 02/02/17 0000 Signed Impressions: Service Date/Time: Thursday, February 02, 2017 09:41 - CONCLUSION: Normal noncontrast head CT. Gen Grove MD Carotid Artery Ultrasound 01/31/17 0000 Signed Impressions: Service Date/Time: Tuesday, January 31, 2017 21:49 - CONCLUSION: Normal examination. Gen Cruz MD Pending results at discharge: No Medications # of Antipsychotic meds at D/C: 1 Approp Antipsych med options 1 - Minimum of three failed multiple trials of monotherapy. 2 - Documented plan to taper to monotherapy due to previous use of multiple meds OR cross-taper in progress at D/C. 3 - Documentation of augmentation of Clozapine. 4 - Justification other than those listed in allowable values 1-3, document here : Discharge Discharge Date: Feb 05, 2017 Discharge Diagnosis: (1) Major depressive disorder, recurrent, in partial remission Diagnosis: Principal ICD Code: F33.41 - Major depressive disorder, recurrent, in partial remission (2) Anxiety Diagnosis: Secondary ICD Code: F41.9 - Anxiety disorder, unspecified Status: Acute Pt Condition on Discharge: Stable Discharge Disposition: Discharge Home Discharge Instructions Diet Instructions: As Tolerated, No Restrictions Activities you can perform: Weight Bearing as [place] Scheduled Appointment: [facility] New Orders: BASIC METABOLIC PROF - 1 Week New Medications: Atorvastatin (Lipitor) 10 Mg Tab 10 MG PO HS for Cholesterol Management for 15 Days, TAB 1 Refill Bupropion HCl ER 12 HR (Wellbutrin SR 12 HR) 150 Mg Tab 150 MG PO DIRECTED for Mental Health for 15 Days, TAB 1 Refill 300mg PO qAM and 150mg q3PM. Quetiapine (Quetiapine) 100 Mg Tab 150 MG PO HS for Mental Health for 15 Days, TAB 1 Refill Sertraline (Zoloft) 50 Mg Tab 150 MG PO DAILY for Mental Health for 15 Days, TAB 1 Refill Continued Medications: Atenolol (Atenolol) 25 Mg Tab 25 MG PO DAILY for tachycardia for 15 Days, #15 TAB 1 Refill (This prescription has been renewed) Discontinued Medications: Clonazepam (Klonopin) 0.5 Mg Tab 0.5 MG PO Q8HR for Anxiety, #30 TAB Discharge Time > 30 minutes Mental Status Examination Appearance: Appropriate Consciousness: Alert Orientation: x4 Motor Activity: Other (no hand tremor, no dystonia, no dyskinesia, no other motor abnormalities noted) Speech: Unremarkable Language: Adequate Fund of Knowledge: Adequate Attention and Concentration: Adequate Memory: Unremarkable Mood: Appropriate (mood continues to slowly improve) Affect: Appropriate (fairly full and reactive) Thought Process & Associations: Intact, Logical, Goal directed, Linear Thought Content: Appropriate Hallucination Type: None Delusion Type: None Suicidal Ideation: No Suicidal Plan: No Suicidal Intention: No Homicidal Ideation: No Homicidal Plan: No Homicidal Intention: No Insight: Adequate Judgment: Adequate Discharge/Advance Care Plan Health Problems: (1) Major depressive disorder, recurrent severe without psychotic features (2) Anxiety (3) Noncompliance with medication regimen Goals to promote your health * To prevent worsening of your condition and complications * To maintain your health at the optimal level Directions to meet your goals Take your medications as prescribed Follow your dietary instruction Follow activity as directed Keep your appointments as scheduled Take your immunizations and boosters as scheduled If your symptoms worsen call your PCP, if no PCP go to Urgent Care Center or Emergency Room For 07/10 questions related to your inpatient stay or results of tests pending at discharge, please contact Dr. Junior Peraza at Smoking is Dangerous to Your Health. Avoid second hand smoking Junior Peraza MD Feb 05, 2017 10:30
[2017-02-05] MEDS: FERROUS SULFATE 325 MG (65 MG ELEMENTAL IRON) TAB PO SCH ×2 (11:28→16:21)
[2017-02-05] MEDS: hydrOXYzine HCL 50 MG TAB PO PRN (13:25)
== END 2017-02-05 16:35 | disposition home or self-care (01) | DRG 885 ==
LOC: H260 13:17 → H250 02-05 11:02
PROVIDERS: ADMIT Psychiatry & Neurology Psychiatry; ATTEND Psychiatry & Neurology Psychiatry
DX: F33.41 Major depressive disorder, recurrent, in partial remission (principal); Z91.14 Patient's other noncompliance with medication regimen; D50.9 Iron deficiency anemia, unspecified; F41.9 Anxiety disorder, unspecified; E78.00 Pure hypercholesterolemia, unspecified; R00.0 Tachycardia, unspecified; R42 Dizziness and giddiness; Z81.8 Family history of other mental and behavioral disorders
CPT/HCPCS: 70450; 80048; 80053; 80061; 82728; 83036; 83540; 83550; 84702; 85025; 93005; 93306; 93880